=== PATIENT | male | born 1975 | race Caucasian/White ===

== ENCOUNTER 2018-11-15 11:07 | Inpatient (IN) ==
--- NOTE | 2018-11-15 12:18 | ED ---
HPI General Chief Complaint: Abdominal Pain Stated Complaint: Abdominal Complaint Time Seen by Provider: 11/15/18 12:02 Source: patient Mode of arrival: ambulatory Limitations: no limitations History of Present Illness HPI narrative: 43-year-old man, presents emerged from complaining of being sick for the past 10 days, nausea vomiting, worsening diffuse abdominal pain, 8 out of 10, with 5-10 episodes of vomiting a day. No diarrhea except one time he tried Dulcolax to see if that would help. No urinary symptoms. History of IV heroin use, clean times 3 months. No recent use. Denies any history of endocarditis or other complications of injection drug use. No sick contacts. Otherwise has been feeling generally well and healthy. Symptoms started 10 days ago with some cough cold symptoms. Cough cold symptoms generally resolved but the abdominal pain and nausea vomiting got progressively worse. No history of previous similar symptoms. Related Data Home Medications Medication Instructions Recorded Confirmed No Known Home Medications 11/15/18 11/15/18 Allergies Allergy/AdvReac Type Severity Reaction Status Date / Time No Known Allergies Allergy Verified 11/15/18 11:12 Review of Systems ROS: all other systems reviewed are negative PMFSH History History Provided By: Patient and Family Member Medical History Medical History Patient denies medical problems (Acute) Surgical History Surgical History No history of previous surgery (Acute) Social History Social History Smoking Status: Never smoker How Often Do You Have a Drink Containing Alcohol: Never Recent Travel in [facility] within the Last 8 Weeks: Yes Recent Out of Country Travel within the Last 8 Weeks: No Exam Narrative Exam Narrative: GENERAL: Pale, one appearing 43-year-old man, nontoxic. SKIN: Focused skin assessment warm/dry. HEAD: Atraumatic. Normocephalic. EYES: Pupils equal and round. No scleral icterus. No injection or drainage. ENT: No nasal bleeding or discharge. Mucous membranes pink and moist. NECK: Trachea midline. No JVD. CARDIOVASCULAR: Regular rate and rhythm. No murmur appreciated. RESPIRATORY: No accessory muscle use. Clear to auscultation. Breath sounds equal bilaterally. GASTROINTESTINAL: Abdomen soft. Maybe a little bit distended. Moderate diffuse tenderness. No rebound or guarding. MUSCULOSKELETAL: No obvious deformities. No edema. NEUROLOGICAL: Awake and alert. No obvious cranial nerve deficits. Motor grossly within normal limits. Normal speech. PSYCHIATRIC: Appropriate mood and affect; insight and judgment normal. Course Reevaluation(s) Reevaluation #1: Spoke with Dr. Medina via Cell Phone, spoke with darinel thompson, will review slide and consult. Initial Documented Vital Signs Temperature 98.4 F 11/15/18 11:13 Pulse Rate 102 H 11/15/18 11:13 Respiratory Rate 19 11/15/18 11:13 Blood Pressure 109/70 11/15/18 11:13 Pulse Oximetry 100 11/15/18 11:13 Last Documented Vital Signs Temperature 98.4 F 11/15/18 11:13 Pulse Rate 95 H 11/15/18 15:08 Respiratory Rate 20 11/15/18 15:08 Blood Pressure 115/56 L 11/15/18 15:08 Pulse Oximetry 98 11/15/18 15:08 Medical Decision Making MDM Narrative Medical decision making narrative: 43-year-old man, somewhat pale in the ill- appearing, abdominal pain and vomiting ongoing for a week. Started with some cough cold symptoms. History of IV drug use but no use times 3 months he has not really having diarrhea to suggest this is acute gastroenteritis. Will check labs, CT imaging, this will likely still be negative, and if so, will recommend symptom medic treatment and outpatient follow-up. He also needs a note that he is okay to start long-term detox/sober living. Lab work is been reviewed and is notable for a hemoglobin of 8.1, platelet count of 16, a sodium of 125 and a chloride of 93, total bilirubin 2.2, ALP 178 , CT abdomen pelvis reveals a single functioning left-sided kidney. The right kidney does not exist. 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 Mild to moderate abdominal ascites, small bilateral effusions, right greater than left. The patient denies any significant past medical history, does endorse a history of IV drug use last using 3 months ago. No history of nephrectomy. No history of black or tarry stools, hematemesis, hematochezia. Medical Screen Exam Complete: Yes Emergency Medical Condition: Yes Lab Data Result diagrams: 11/15/18 12:34 11/15/18 12:34 Lab Results 11/15/18 11/15/18 11/15/18 Range/Units 12:34 12:34 13:09 WBC 8.2 (4.0-11.0) th/mm3 RBC 3.01 L (4.50-5.90) mil/mm3 Hgb 8.1 L (13.0-17.0) gm/dL Hct 25.5 L (39.0-51.0) % MCV 84.7 (80.0-100.0) fL MCH 26.9 L (27.0-34.0) pg MCHC 31.8 L (32.0-36.0) % RDW 23.1 H (11.6-17.2) % Plt Count 16 L* (150-450) th/mm3 MPV 9.6 (7.0-11.0) fL Prelim Diff (Auto) Slide review pending Neut % (Auto) 77.4 H (16.0-70.0) % Lymph % (Auto) 14.5 (9.0-44.0) % Loup % (Auto) 7.3 (0.0-8.0) % Eos % (Auto) 0.1 (0.0-4.0) % Baso % (Auto) 0.7 (0.0-2.0) % Neut # (Auto) 6.3 (1.8-7.7) th/mm3 Lymph # (Auto) 1.2 (1.0-4.8) th/mm3 Loup # (Auto) 0.6 (0.0-0.9) th/mm3 Eos # (Auto) 0.0 (0.0-0.4) th/mm3 Baso # (Auto) 0.1 (0.0-0.2) th/mm3 WBC Differential Manual diff final Seg Neuts % (Manual) 85 H (16-70) % Band Neuts % (Manual) 4 (0-6) % Lymphocytes % (Manual) 8 L (9-44) % Monocytes % (Manual) 2 (0-8) % Basophils % (Manual) 1 (0-2) % Abs Neuts (Manual) 7.3 (1.8-7.7) th/mm3 Differential Comment . Toxic Granulation 2+ H (None) Platelet Estimate Low L (Normal) Platelet Morphology Enlarged H (Normal) Polychromasia 2.7 H (0.0-1.9) % Tear Drop Cells 1+ H (None) Ovalocytes 1+ H (None) Keratocytes Occ H (None) PT (9.8-11.6) sec INR Ratio APTT (23.4-31.7) sec Sodium 125 L (136-145) meq/L Potassium 4.1 (3.5-5.1) meq/L Chloride 93 L (98-107) meq/L Carbon Dioxide 22.6 (21.0-32.0) meq/L Anion Gap 9 (5-15) meq/L BUN 24 H (7-18) mg/dL Creatinine 1.25 (0.60-1.30) mg/dL Estimated GFR 63 L (>89) mL/min Random Glucose 88 (74-106) mg/dL Calcium 7.5 L (8.5-10.1) mg/dL Magnesium 2.4 (1.5-2.5) mg/dL Total Bilirubin 2.2 H (0.2-1.0) mg/dL AST 36 (15-37) U/L ALT 14 (12-78) U/L Alkaline Phosphatase 178 H (45-117) U/L Total Protein 7.1 (6.4-8.2) g/dL Albumin 2.3 L (3.4-5.0) g/dL Lipase 141 (73-393) U/L Urine Color Bridgett (Yellw/Straw) Urine Clarity Clear (Clear) Urine pH 6.0 (5.0-8.5) Ur Specific Weems 1.019 (1.002-1.035) Urine Protein 100 H (Neg-Trace) mg/dL Urine Glucose (UA) Negative (Negative) mg/dL Urine Ketones Negative (Negative) mg/dL Urine Occult Blood Large H (Negative) Urine Nitrate Negative (Negative) Urine Bilirubin Negative (Negative) Urine Urobilinogen Less than 2 (Less than 2) mg/dL Ur Leukocyte Esterase Trace H (Negative) Urine RBC 17 H (0-3) /hpf Urine WBC 8 H (0-5) /hpf Urine Bacteria Rare H (None) /hpf Hyaline Casts 9 (0-3) /lpf Urine Mucus Few H (Occasional) /lpf Urine Yeast Few H (None) /hpf Micro UA Comment Culture not ind Ur Microscopic Review Not Reportable Urine Culture Comments Culture not ind Blood Type Blood Type Recheck Antibody Screen 11/15/18 11/15/18 Range/Units 13:20 13:20 WBC (4.0-11.0) th/mm3 RBC (4.50-5.90) mil/mm3 Hgb (13.0-17.0) gm/dL Hct (39.0-51.0) % MCV (80.0-100.0) fL MCH (27.0-34.0) pg MCHC (32.0-36.0) % RDW (11.6-17.2) % Plt Count (150-450) th/mm3 MPV (7.0-11.0) fL Prelim Diff (Auto) Neut % (Auto) (16.0-70.0) % Lymph % (Auto) (9.0-44.0) % Loup % (Auto) (0.0-8.0) % Eos % (Auto) (0.0-4.0) % Baso % (Auto) (0.0-2.0) % Neut # (Auto) (1.8-7.7) th/mm3 Lymph # (Auto) (1.0-4.8) th/mm3 Loup # (Auto) (0.0-0.9) th/mm3 Eos # (Auto) (0.0-0.4) th/mm3 Baso # (Auto) (0.0-0.2) th/mm3 WBC Differential Seg Neuts % (Manual) (16-70) % Band Neuts % (Manual) (0-6) % Lymphocytes % (Manual) (9-44) % Monocytes % (Manual) (0-8) % Basophils % (Manual) (0-2) % Abs Neuts (Manual) (1.8-7.7) th/mm3 Differential Comment Toxic Granulation (None) Platelet Estimate (Normal) Platelet Morphology (Normal) Polychromasia (0.0-1.9) % Tear Drop Cells (None) Ovalocytes (None) Keratocytes (None) PT 14.6 H (9.8-11.6) sec INR 1.4 Ratio APTT 38.3 H (23.4-31.7) sec Sodium (136-145) meq/L Potassium (3.5-5.1) meq/L Chloride (98-107) meq/L Carbon Dioxide (21.0-32.0) meq/L Anion Gap (5-15) meq/L BUN (7-18) mg/dL Creatinine (0.60-1.30) mg/dL Estimated GFR (>89) mL/min Random Glucose (74-106) mg/dL Calcium (8.5-10.1) mg/dL Magnesium (1.5-2.5) mg/dL Total Bilirubin (0.2-1.0) mg/dL AST (15-37) U/L ALT (12-78) U/L Alkaline Phosphatase (45-117) U/L Total Protein (6.4-8.2) g/dL Albumin (3.4-5.0) g/dL Lipase (73-393) U/L Urine Color (Yellw/Straw) Urine Clarity (Clear) Urine pH (5.0-8.5) Ur Specific Weems (1.002-1.035) Urine Protein (Neg-Trace) mg/dL Urine Glucose (UA) (Negative) mg/dL Urine Ketones (Negative) mg/dL Urine Occult Blood (Negative) Urine Nitrate (Negative) Urine Bilirubin (Negative) Urine Urobilinogen (Less than 2) mg/dL Ur Leukocyte Esterase (Negative) Urine RBC (0-3) /hpf Urine WBC (0-5) /hpf Urine Bacteria (None) /hpf Hyaline Casts (0-3) /lpf Urine Mucus (Occasional) /lpf Urine Yeast (None) /hpf Micro UA Comment Ur Microscopic Review Urine Culture Comments Blood Type A Positive Blood Type Recheck Required Antibody Screen Negative Imaging Data Radiologist's impression: Abdomen/Pelvis CT 11/15/18 12:14 CONCLUSION: 1. 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 This needs to be correlated with patient's medical and surgical history. 2. Fatty infiltration of the liver. 3. 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 The largest defect measures approximately 3 cm x 4 cm. 4. Mild to moderate abdominal ascites. 5. Small bilateral effusions, right greater than left. Discharge Plan Discharge Disposition Patient Disposition: ED Admit(ED Internal Use Only) Discharge Condition Condition: Stable Discharge Order Discharge Orders: ED Use Only Admit Order (Routine); Ordered 11/15/18 Ordered By: Feliberto Russell Discharge Details Diagnosis: Thrombocytopenia, Splenic infarct, Hyponatremia Physicians Team ED Provider: Dmitriy Platt ED Midlevel Provider: Feliberto Russell Primary Care Provider: Primary Care Yolie Kamara Attending Provider: Huy Pandey Status ED Status: Admitted Patient
[2018-11-15] MEDS ORDERED: Sod Chloride 0.9% Inj 1,000 ML IV.SIG SCH (12:30)
[2018-11-15] MEDS ORDERED: Dicyclomine Inj 20 MG/2 ML Ampul IM ONE (12:39)
[2018-11-15] MEDS ORDERED: Pantoprazole Inj 40 MG Vial IV.PUSH ONE (12:43)
[2018-11-15 12:54] LABS: Baso # (Auto) 0.1 th/mm3 (0.0-0.2); Baso % (Auto) 0.7 % (0.0-2.0); Eos % (Auto) 0.1 % (0.0-4.0); Hematocrit 25.5 % (39.0-51.0); Hemoglobin 8.1 gm/dL (13.0-17.0); Lymph # (Auto) 1.2 th/mm3 (1.0-4.8); Lymph % (Auto) 14.5 % (9.0-44.0); Mean Corpuscular HGB Conc 31.8 % (32.0-36.0); Mean Corpuscular Hemoglobin 26.9 pg (27.0-34.0); Mean Corpuscular Volume 84.7 fL (80.0-100.0); Mean Platelet Volume 9.6 fL (7.0-11.0); Mono # (Auto) 0.6 th/mm3 (0.0-0.9); Mono % (Auto) 7.3 % (0.0-8.0); Neut # (Auto) 6.3 th/mm3 (1.8-7.7); Neut % (Auto) 77.4 % (16.0-70.0); Red Blood Count 3.01 mil/mm3 (4.50-5.90); Red Cell Distribution Width 23.1 % (11.6-17.2); White Blood Count 8.2 th/mm3 (4.0-11.0)
[2018-11-15 13:07] LABS: Alanine Aminotransferase 14 U/L (12-78); Albumin 2.3 g/dL (3.4-5.0); Anion Gap 9 meq/L (5-15); Aspartate Aminotransferase 36 U/L (15-37); Blood Urea Nitrogen 24 mg/dL (7-18); Calcium 7.5 mg/dL (8.5-10.1); Carbon Dioxide 22.6 meq/L (21.0-32.0); Chloride 93 meq/L (98-107); Glomerular Filtration Rate 63 mL/min (>89); Glucose,Random 88 mg/dL (74-106); Lipase 141 U/L (73-393); Magnesium 2.4 mg/dL (1.5-2.5); Potassium 4.1 meq/L (3.5-5.1); Sodium 125 meq/L (136-145)
[2018-11-15 13:09] LABS: Alkaline Phosphatase 178 U/L (45-117); Total Protein 7.1 g/dL (6.4-8.2)
[2018-11-15 13:17] LABS: Platelet Count 16 th/mm3 (150-450)
[2018-11-15 13:25] LABS: Lymphocytes 8 % (9-44); Monocytes 2 % (0-8)
[2018-11-15 13:27] LABS: Toxic Granulation 2+
[2018-11-15 13:28] LABS: Ovalocytes 1+; Tear Drop Cells 1+
[2018-11-15 13:30] LABS: Polychromasia 2.7 % (0.0-1.9)
[2018-11-15 13:34] LABS: Bacteria,Urine Rare /hpf; Bilirubin,Urine Negative (Negative); Clarity,Urine Clear (Clear); Color,Urine Amber (Yellw/Straw); Glucose,Urine (UA) Negative (Negative); Hyaline Casts,Urine 9 /lpf (0-3); Leukocyte Esterase,Urine Trace (Negative); Mucus,Urine Few /lpf (Occasional); Nitrite,Urine Negative (Negative); Specific Gravity,Urine 1.019 (1.002-1.035)
--- NOTE | 2018-11-15 13:40 | CT ---
EXAM DATE: 11/15/2018 1:25 PM EST AGE/SEX: 43 years / Male INDICATIONS: Patient complains of mid abdominal pain for 10 days CLINICAL DATA: This is the patient's initial encounter. Patient reports that signs and symptoms have been present for 1 week and indicates a pain score of 8/10. MEDICAL/SURGICAL HISTORY: None. None. ORAL CONTRAST: No oral contrast ingested. RADIATION DOSE: 7.96 CTDI (mGy) COMPARISON: No prior exams available for comparison. TECHNIQUE: Multiple contiguous axial images were obtained through the abdomen and pelvis following b olus infusion of 95 ml Omnipaque 350 (iohexol) nonionic water-soluble contrast as a cumulative dose for multiple exams. No oral contrast ingested. Using automated exposure control and adjustment of t he mA and/or kV according to patient size, radiation dose was kept as low as reasonably achievable to obtain optimal diagnostic quality images. DICOM format image data is available electronically for r eview and comparison. FINDINGS: Lower Lungs: Small bilateral pleural effusions, right greater than left. Liver: The liver has a homogeneous density without space-occupying lesion. There does appear to be so me fatty infiltration throughout the liver. There is evidence of a small amount of ascites in the upp er abdomen fluid around the liver and spleen. The gallbladder is grossly unremarkable. There is no di lation of the biliary tree. Spleen: There appear to be 2 focal defects involving the spleen suggestive of splenic infarcts. The largest defect measures approximately 3 cm x 4 cm. The smaller defect measures approximately 1.6 cm. The spleen does not appear to be enlarged. Pancreas: Unremarkable without mass or calcification. Kidneys: There is a single kidney on the left side which appears to be functioning with no evidence of hydronephrosis. There is no evidence of a right kidney. There is no evidence of a right renal emily ry. 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 Adrenal Glands: Unremarkable. Aorta: The aorta and proximal iliac vessels are grossly unremarkable without aneurysmal dilation. Bowel/Mesentery: The bowel loops are grossly unremarkable. The cecum and sigmoid colon have a normal configuration. There is stool throughout the colon. There is some mild to moderate ascites in the mi d to lower abdomen. Abdominal Wall: Intact. Retroperitoneum: No evidence of adenopathy in the retrocrural, para-aortic, or deep pelvic regions. Bladder: Contours are smooth. Reproductive Organs: No abnormal masses or calcifications seen. Inguinal: The inguinal region is unremarkable without evidence of adenopathy. Bony Structures: Unremarkable. CONCLUSION: 1. There is a single functioning left sided kidney. A right kidney does not exist. This could be age nesis of the right kidney. This needs to be correlated with patient's medical and surgical history. 2. Fatty infiltration of the liver. 3. 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 The largest defect m easures approximately 3 cm x 4 cm. 4. Mild to moderate abdominal ascites. 5. Small bilateral effusions, right greater than left. Electronically signed by: Carlos Roberto MD Board Certified Radiologist 11/15/2018 1:38 PM EST
[2018-11-15 13:54] LABS: Activated Partial Thrombo Time 38.3 sec (23.4-31.7); INR 1.4 Ratio; Prothrombin Time 14.6 sec (9.8-11.6)
--- NOTE | 2018-11-15 15:13 | P.HPFP ---
History of Present Illness Primary Care Physician: No Primary Care Physician <XaviHuy uribe - 11/16/18 10:21> No Primary Care Physician <Tonja Kelley - 11/15/18 15:13> Chief Complaint: Abdominal pain, nausea and vomiting. <Tonja Kelley - 20:33> History of Present Illness: 43-year-old male with history of IV drug use and aortic stenosis diagnosed as a child presents the hospital with constant bilateral lower quadrant abdominal pain that has been gradually worsening for the past 7-10 days. He describes the pain as a "fullness" and distention. Also complains of concurrent nausea, which comes and goes, worse with coughing, or movement causing increased abdominal pressure. He notes that he has been belching frequently and admits to vomiting 2-3 times daily for the past couple of days. He notes that the emesis is nonbilious and nonbloody, sometimes triggered by coughing. Though he has been intermittently nauseated, he has been able to tolerate fluids and food occasionally. He also notes some shortness of breath, describing it as an inability to take a deep breath due to stomach pain. Admits to mild swelling in his ankles and feet for the past couple of days. He notes that he feels more pale than normal, and parents who are in the room, comments that he looks a little yellow-tinged. Denies fever, lightheaded dizziness, syncope, falls, CP , dysuria, hematuria, diarrhea or constipation. No increased bleeding or bruising. Past medical history: Diagnosed with aortic stenosis as a child, but not operated on as he remains asymptomatic. Medications: None Surgical history: None Social history: Lives in a house in [facility], with his father and stepmother. He is currently unemployed. Recently moved to [place] from [place], about 1-2 months ago. Former 50-npww-hery smoker, quit 3 months ago Denies alcohol use currently. Notes "occasional use "in the past. 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 PCP: none <Tonja Kelley - 11/15/18 23:21> - Diagnosis (1) Thrombocytopenia (2) Anemia (3) Ascites (4) Abdominal pain (5) Nausea and vomiting (6) Hyponatremia (7) Splenic infarct (8) Aortic stenosis (9) Hx of intravenous drug use, in remission (10) Nutrition, metabolism, and development symptoms (11) DVT prophylaxis <Huy Pandey 11/16/18 10:21> (1) Thrombocytopenia (2) Anemia (3) Ascites (4) Abdominal pain (5) Nausea and vomiting (6) Hyponatremia (7) Splenic infarct (8) Aortic stenosis (9) Hx of intravenous drug use, in remission (10) Nutrition, metabolism, and development symptoms (11) DVT prophylaxis <[address] B 11/15/18 23:30> Inpatient Certification: I certify that the inpatient services were ordered in accordance with Medicare regulations governing the order. This includes certification that hospital inpatient services are reasonable and necessary and in the case of services not specified as inpatient-only under 42 CFR 419.22(n), that they are appropriately provided as inpatient services in accordance to with the 2-midnight benchmark under 43 CFR 412.3(e) <Huy Pandey 11/16/18 10:21> I certify that the inpatient services were ordered in accordance with Medicare regulations governing the order. This includes certification that hospital inpatient services are reasonable and necessary and in the case of services not specified as inpatient-only under 42 CFR 419.22(n), that they are appropriately provided as inpatient services in accordance to with the 2-midnight benchmark under 43 CFR 412.3(e) <[place] [id number] 11/15/18 23:21> Review of Systems Constitutional: Denies chills, Denies fever(s) <[address] 11/15/18 20:33> Eyes: Denies change in vision, Denies double vision <[address] 20:33> Ears, Nose, Mouth, and Throat: Denies nasal congestion, Denies nasal discharge, Denies sinus pain, Denies sore throat <[address] 11/15/18 20:33> Cardiovascular: Reports leg swelling, Reports lightheadedness, Denies chest pain , Denies irregular heart rhythm <[address] 11/15/18 20:33> Respiratory: Reports change in phlegm color, Reports cough, Reports shortness of breath (Unable to take a deep breath), Denies stridor, Denies wheezing < Tonja Kelley 11/15/18 20:33> Gastrointestinal: Reports abdominal pain, Reports belching, Reports bloating, Reports nausea, Reports vomiting, Denies constipation, Denies loose stools < Tonja Kelley 11/15/18 20:33> Genitourinary: Denies blood in urine, Denies painful urination <Tonja Kelley 11/15/18 20:33> Musculoskeletal: Denies back pain, Denies muscle cramps <Tonja Kelley 11/15/18 20:33> Hematologic/Lymphatic: Denies easy bleeding, Denies easy bruising <Tonja Kelley 11/15/18 20:33> PMFSH - History History Provided By: Patient, Family Member <Tonja Kelley 11/15/18 15: 13> - Medical History Medical History: Medical History (Last Reviewed 11/15/18 @ 22:59 by Tonja Tenorio DO, R1) Patient denies medical problems <Huy Pandey Wilfredo 11/16/18 10:21> Medical History (Last Reviewed 11/15/18 @ 22:59 by Tonja Tenorio DO, R1) Patient denies medical problems <Vahid TenorioTonja Brasher 11/15/18 23:21> - Surgical History Surgical History: Surgical History (Last Reviewed 11/15/18 @ 22:59 by Tonja Tenorio, , R1) No history of previous surgery <Huy Pandey 11/16/18 10:21> Surgical History (Last Reviewed 11/15/18 @ 22:59 by Tonja Tenorio DO, R1) No history of previous surgery <Vahid TenorioTonja Brasher 11/15/18 23:21> - Social History I have reviewed the patient's Social History: Yes <Vahid TenorioTonja Brasher 23:21> - Tobacco History Smoking Status: Never smoker <Vahid TenorioTonaj Brasher 11/15/18 15:13> - Alcohol History How Often Do You Have a Drink Containing Alcohol: Never <Vahid TenorioTonja Brasher 11/15/18 15:13> - 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 <Tonja Kelley 11/15/18 20:33> Last Used: 3 months <Tonja Kelley 11/15/18 20:33> Reason for Use: Get High <Tonja Kelley 11/15/18 20:33> - Travel History Recent Travel in the [facility] Within the Last 8 Weeks: Yes <Tonja Kelley 15:13> Recent Travel Out of the Country Within the Last 8 Weeks: No <Tonja Kelley 11/15/18 15:13> - Immunization History Tetanus Immunization: Unsure <Tonja Kelley 11/15/18 15:13> Medications and Allergies Allergies Allergy/AdvReac Type Severity Reaction Status Date / Time No Known Allergies Allergy Verified 11/15/18 11:12 <Huy Panedy 11/16/18 10:21> Home Medications Medication Instructions Recorded Confirmed Type No Known Home Medications 11/15/18 11/15/18 History <Huy Pandey 11/16/18 10:21> Active Medications: Active Medications Acetaminophen (Tylenol) 650 mg PO Q6HR PRN PRN Reason: PAIN SCALE 1 TO 2 Acetaminophen (Tylenol) 650 mg PO Q4H PRN PRN Reason: Temp > 100.4 Furosemide (Lasix) 40 mg PO DAILY [facility] Sodium Chloride (Ns Inj) 1,000 mls @ 110 mls/hr IV.CONT .Q9H6M [facility] Last Admin: 11/16/18 04:46 Dose: 110 mls/hr Albumin Human (Flexbumin 25% Inj) 50 mls @ 60 mls/hr IV.SIG Q12H [facility] Last Infusion: 11/15/18 23:50 Dose: Infused Ceftriaxone Sodium 1,000 mg/ (Sodium Chloride) 100 mls @ 200 mls/hr IV.SIG Q12H [facility] Naloxone HCl (Narcan Inj) 0.4 mg IV.PUSH UNSCH PRN PRN Reason: SEE LABEL COMMENTS Ondansetron HCl (Zofran Inj) 4 mg IV.PUSH Q6H PRN PRN Reason: NAUSEA OR VOMITING Senna/Docusate Sodium (Katherine-Colace) 1 tab PO BID PRN PRN Reason: CONSTIPATION Sodium Chloride (Ns Flush) 2 ml IV.FLUSH BID JAZLYN Last Admin: 11/15/18 23:05 Dose: 2 ml Sodium Chloride (Ns Flush) 2 ml IV.FLUSH PRN PRN PRN Reason: FLUSH AFTER USING IV ACCESS <Huy Pandey - 11/16/18 10:21> Active Medications Sodium Chloride (Ns Flush) 2 ml IV.FLUSH PRN PRN PRN Reason: FLUSH AFTER USING IV ACCESS <Tonja Kelley B - 11/15/18 15:13> Exam Vital signs: Vital Signs 11/15/18 11:13 11/15/18 15:08 11/15/18 17:45 Temperature 98.4 F 98.5 F Pulse Rate 102 H 95 H 102 H Respiratory Rate 19 20 17 Blood Pressure 109/70 115/56 L 102/59 L Pulse Oximetry 100 98 100 11/15/18 20:00 11/15/18 20:25 11/16/18 00:00 Temperature 99.0 F 96.9 F L Pulse Rate 92 H 78 Respiratory Rate 17 17 Blood Pressure 96/56 L 95/60 L Pulse Oximetry 95 95 94 L 11/16/18 04:36 11/16/18 08:00 Temperature 97.2 F L 98.4 F Pulse Rate 104 H 99 H Respiratory Rate 18 17 Blood Pressure 112/68 112/70 Pulse Oximetry 95 100 Intake & Output 11/15/18 11/16/18 11/16/18 18:59 06:59 18:59 Intake Total 1000 / 1000 1999 / 1999 Balance 1000 / 1000 1999 Weight 63 kg Intake: IV 1000 / 1000 1999 NS Inj 1,000 ML @ 110 mls/hr IV 950 / 950 .CONT .Q9H6M JAZLYN Rx#:[id number] Flexbumin 25% Inj 50 ML @ 60 50 / 50 mls/hr IV.SIG Q12H JAZLYN Rx#: [id number] NS Inj 1,000 ML @ 1000 mls/hr 1000 / 1000 1000 / 1000 IV.SIG BOLUS JAZLYN Rx#:[id number] Other: # Voids 3 Date of Last Bowel Movement 11/14/18 # Bowel Movements 1 Weight On Admission 62.1 kg <Huy Pandey - 11/16/18 10:21> Vital Signs 11/15/18 11:13 Temperature 98.4 F Pulse Rate 102 H Respiratory Rate 19 Blood Pressure 109/70 Pulse Oximetry 100 Intake & Output 11/14/18 11/15/18 11/15/18 18:59 06:59 18:59 Intake Total 1000 / 1000 Balance 1000 / 1000 Weight 68.039 kg Intake: IV 1000 / 1000 NS Inj 1,000 ML @ 1000 mls/hr 1000 / 1000 IV.SIG BOLUS JAZLYN Rx#:[id number] <Tonja Kelley - 11/15/18 15:13> Narrative: GENERAL: 43-year-old, well nourished, well developed male sitting up in bed. In no acute distress. SKIN: Warm and dry. Pale, mildly yellow. HEAD: Atraumatic. Normocephalic. EYES: EMOI. PERRLA. No scleral icterus. No injection or drainage. ENT: No nasal bleeding or discharge. Mucous membranes pale pink and moist. Airway patent. CARDIOVASCULAR: Regular rate and rhythm. Systolic ejection at sternal border murmur. Capillary refill greater than 2 seconds, but otherwise well perfused. RESPIRATORY: No accessory muscle use. Clear to auscultation with equal breath sounds. No crackles, wheeze, rales or rhonchi. GASTROINTESTINAL: Bowel sounds in all 4 quadrants. Abdomen distended, diffusely tender to light and deep palpation. No guarding or rebound. Hepatic and splenic margins not palpable. MUSCULOSKELETAL: Extremities without clubbing, cyanosis. Trace to 1+ edema of bilateral lower extremities up to mid ward. No obvious deformities. No calf tenderness. NEUROLOGICAL: Awake and alert. No obvious cranial nerve deficits. Motor grossly within normal limits. Five out of 5 muscle strength in the arms and legs. Normal speech. PSYCHIATRIC: Appropriate mood and affect; insight and judgment normal. <Tonja Kelley - 11/15/18 23:21> Results - Labs Result diagrams: 11/16/18 07:38 11/16/18 07:38 <Huy Pandey - 11/16/18 10:21> Abnormal lab results 11/15/18 11/15/18 11/15/18 Range/Units 12:34 12:34 12:34 RBC 3.01 L (4.50-5.90) mil/mm3 Hgb 8.1 L (13.0-17.0) gm/dL Hct 25.5 L (39.0-51.0) % MCH 26.9 L (27.0-34.0) pg MCHC 31.8 L (32.0-36.0) % RDW 23.1 H (11.6-17.2) % Plt Count 16 L* (150-450) th/mm3 Neut % (Auto) 77.4 H (16.0-70.0) % Lymph % (Auto) (9.0-44.0) % Neut # (Auto) (1.8-7.7) th/mm3 Lymph # (Auto) (1.0-4.8) th/mm3 Seg Neuts % (Manual) 85 H (16-70) % Lymphocytes % (Manual) 8 L (9-44) % Toxic Granulation 2+ H (None) Platelet Estimate Low L (Normal) Platelet Morphology Enlarged H (Normal) Polychromasia 2.7 H (0.0-1.9) % Tear Drop Cells 1+ H (None) Ovalocytes 1+ H (None) Keratocytes Occ H (None) Retic Count (0.4-3.0) % Absolute Retic (20.0-150.0) mil/L Haptoglobin Less than 10 L (30-200) mg/dL PT (9.8-11.6) sec APTT (23.4-31.7) sec Sodium 125 L (136-145) meq/L Chloride 93 L (98-107) meq/L Carbon Dioxide (21.0-32.0) meq/L BUN 24 H (7-18) mg/dL Creatinine (0.60-1.30) mg/dL Estimated GFR 63 L (>89) mL/min Calcium 7.5 L (8.5-10.1) mg/dL Calcium Adj for Albumin (8.5-10.1) mg/dL Iron (65-175) mcg/dL % Saturation (20-50) % Total Bilirubin 2.2 H (0.2-1.0) mg/dL Alkaline Phosphatase 178 H (45-117) U/L Lactate Dehydrogenase 761 H (87-241) U/L Albumin 2.3 L (3.4-5.0) g/dL Vitamin B12 (193-986) pg/mL Urine Protein (Neg-Trace) mg/dL Urine Occult Blood (Negative) Ur Leukocyte Esterase (Negative) Urine RBC (0-3) /hpf Urine WBC (0-5) /hpf Urine Bacteria (None) /hpf Urine Mucus (Occasional) /lpf Urine Yeast (None) /hpf Hep C IgG Ab (Nonreactive) 11/15/18 11/15/18 11/15/18 Range/Units 12:34 12:34 13:09 RBC (4.50-5.90) mil/mm3 Hgb (13.0-17.0) gm/dL Hct (39.0-51.0) % MCH (27.0-34.0) pg MCHC (32.0-36.0) % RDW (11.6-17.2) % Plt Count (150-450) th/mm3 Neut % (Auto) (16.0-70.0) % Lymph % (Auto) (9.0-44.0) % Neut # (Auto) (1.8-7.7) th/mm3 Lymph # (Auto) (1.0-4.8) th/mm3 Seg Neuts % (Manual) (16-70) % Lymphocytes % (Manual) (9-44) % Toxic Granulation (None) Platelet Estimate (Normal) Platelet Morphology (Normal) Polychromasia (0.0-1.9) % Tear Drop Cells (None) Ovalocytes (None) Keratocytes (None) Retic Count 6.0 H (0.4-3.0) % Absolute Retic 177.6 H (20.0-150.0) mil/L Haptoglobin (30-200) mg/dL PT (9.8-11.6) sec APTT (23.4-31.7) sec Sodium (136-145) meq/L Chloride (98-107) meq/L Carbon Dioxide (21.0-32.0) meq/L BUN (7-18) mg/dL Creatinine (0.60-1.30) mg/dL Estimated GFR (>89) mL/min Calcium (8.5-10.1) mg/dL Calcium Adj for Albumin (8.5-10.1) mg/dL Iron 23 L (65-175) mcg/dL % Saturation 8.8 L (20-50) % Total Bilirubin (0.2-1.0) mg/dL Alkaline Phosphatase (45-117) U/L Lactate Dehydrogenase (87-241) U/L Albumin (3.4-5.0) g/dL Vitamin B12 1922 H (193-986) pg/mL Urine Protein 100 H (Neg-Trace) mg/dL Urine Occult Blood Large H (Negative) Ur Leukocyte Esterase Trace H (Negative) Urine RBC 17 H (0-3) /hpf Urine WBC 8 H (0-5) /hpf Urine Bacteria Rare H (None) /hpf Urine Mucus Few H (Occasional) /lpf Urine Yeast Few H (None) /hpf Hep C IgG Ab (Nonreactive) 11/15/18 11/15/18 11/16/18 Range/Units 13:20 18:30 01:35 RBC (4.50-5.90) mil/mm3 Hgb (13.0-17.0) gm/dL Hct (39.0-51.0) % MCH (27.0-34.0) pg MCHC (32.0-36.0) % RDW (11.6-17.2) % Plt Count (150-450) th/mm3 Neut % (Auto) (16.0-70.0) % Lymph % (Auto) (9.0-44.0) % Neut # (Auto) (1.8-7.7) th/mm3 Lymph # (Auto) (1.0-4.8) th/mm3 Seg Neuts % (Manual) (16-70) % Lymphocytes % (Manual) (9-44) % Toxic Granulation (None) Platelet Estimate (Normal) Platelet Morphology (Normal) Polychromasia (0.0-1.9) % Tear Drop Cells (None) Ovalocytes (None) Keratocytes (None) Retic Count (0.4-3.0) % Absolute Retic (20.0-150.0) mil/L Haptoglobin (30-200) mg/dL PT 14.6 H (9.8-11.6) sec APTT 38.3 H (23.4-31.7) sec Sodium 128 L (136-145) meq/L Chloride (98-107) meq/L Carbon Dioxide 19.8 L (21.0-32.0) meq/L BUN 29 H (7-18) mg/dL Creatinine (0.60-1.30) mg/dL Estimated GFR 62 L (>89) mL/min Calcium 6.9 L* (8.5-10.1) mg/dL Calcium Adj for Albumin 8.4 L (8.5-10.1) mg/dL Iron (65-175) mcg/dL % Saturation (20-50) % Total Bilirubin (0.2-1.0) mg/dL Alkaline Phosphatase (45-117) U/L Lactate Dehydrogenase (87-241) U/L Albumin 2.1 L (3.4-5.0) g/dL Vitamin B12 (193-986) pg/mL Urine Protein (Neg-Trace) mg/dL Urine Occult Blood (Negative) Ur Leukocyte Esterase (Negative) Urine RBC (0-3) /hpf Urine WBC (0-5) /hpf Urine Bacteria (None) /hpf Urine Mucus (Occasional) /lpf Urine Yeast (None) /hpf Hep C IgG Ab Reactive H (Nonreactive) 11/16/18 11/16/18 11/16/18 Range/Units 07:38 07:38 07:38 RBC 2.99 L (4.50-5.90) mil/mm3 Hgb 8.0 L (13.0-17.0) gm/dL Hct 25.5 L (39.0-51.0) % MCH 26.9 L (27.0-34.0) pg MCHC 31.6 L (32.0-36.0) % RDW 23.7 H (11.6-17.2) % Plt Count 14 L* (150-450) th/mm3 Neut % (Auto) 89.0 H (16.0-70.0) % Lymph % (Auto) 7.4 L (9.0-44.0) % Neut # (Auto) 9.6 H (1.8-7.7) th/mm3 Lymph # (Auto) 0.8 L (1.0-4.8) th/mm3 Seg Neuts % (Manual) (16-70) % Lymphocytes % (Manual) (9-44) % Toxic Granulation 1+ H (None) Platelet Estimate Rare L (Normal) Platelet Morphology (Normal) Polychromasia 2.0 H (0.0-1.9) % Tear Drop Cells 1+ H (None) Ovalocytes 1+ H (None) Keratocytes Occ H (None) Retic Count (0.4-3.0) % Absolute Retic (20.0-150.0) mil/L Haptoglobin (30-200) mg/dL PT (9.8-11.6) sec APTT (23.4-31.7) sec Sodium 130 L (136-145) meq/L Chloride (98-107) meq/L Carbon Dioxide 20.6 L (21.0-32.0) meq/L BUN 28 H (7-18) mg/dL Creatinine 1.35 H (0.60-1.30) mg/dL Estimated GFR 58 L (>89) mL/min Calcium 7.0 L* (8.5-10.1) mg/dL Calcium Adj for Albumin 8.3 L (8.5-10.1) mg/dL Iron (65-175) mcg/dL % Saturation (20-50) % Total Bilirubin 2.2 H (0.2-1.0) mg/dL Alkaline Phosphatase 150 H (45-117) U/L Lactate Dehydrogenase 702 H (87-241) U/L Albumin 2.4 L (3.4-5.0) g/dL Vitamin B12 (193-986) pg/mL Urine Protein (Neg-Trace) mg/dL Urine Occult Blood (Negative) Ur Leukocyte Esterase (Negative) Urine RBC (0-3) /hpf Urine WBC (0-5) /hpf Urine Bacteria (None) /hpf Urine Mucus (Occasional) /lpf Urine Yeast (None) /hpf Hep C IgG Ab (Nonreactive) Short CBC 11/15/18 11/16/18 Range/Units 12:34 07:38 WBC 8.2 10.8 (4.0-11.0) th/mm3 Hgb 8.1 L 8.0 L (13.0-17.0) gm/dL Hct 25.5 L 25.5 L (39.0-51.0) % Plt Count 16 L* 14 L* (150-450) th/mm3 BMP 11/15/18 11/16/18 11/16/18 12:34 01:35 07:38 Sodium 125 L 128 L 130 L Potassium 4.1 3.6 3.8 Chloride 93 L 99 99 Carbon Dioxide 22.6 19.8 L 20.6 L BUN 24 H 29 H 28 H Creatinine 1.25 1.27 1.35 H Calcium 7.5 L 6.9 L* 7.0 L* Liver Function 11/15/18 11/16/18 11/16/18 Range/Units 12:34 01:35 07:38 Total Bilirubin 2.2 H 2.2 H (0.2-1.0) mg/dL AST 36 30 (15-37) U/L ALT 14 12 (12-78) U/L Alkaline Phosphatase 178 H 150 H (45-117) U/L Albumin 2.3 L 2.1 L 2.4 L (3.4-5.0) g/dL Urine 11/15/18 Range/Units 13:09 Urine Color Bridgett (Yellw/Straw) Urine Clarity Clear (Clear) Urine pH 6.0 (5.0-8.5) Ur Specific [place] 1.019 (1.002-1.035) Urine Protein 100 H (Neg-Trace) mg/dL Urine Glucose (UA) Negative (Negative) mg/dL <Huy Pandey - 11/16/18 10:21> Abnormal lab results 11/15/18 11/15/18 11/15/18 Range/Units 12:34 12:34 13:09 RBC 3.01 L (4.50-5.90) mil/mm3 Hgb 8.1 L (13.0-17.0) gm/dL Hct 25.5 L (39.0-51.0) % MCH 26.9 L (27.0-34.0) pg MCHC 31.8 L (32.0-36.0) % RDW 23.1 H (11.6-17.2) % Plt Count 16 L* (150-450) th/mm3 Neut % (Auto) 77.4 H (16.0-70.0) % Seg Neuts % (Manual) 85 H (16-70) % Lymphocytes % (Manual) 8 L (9-44) % Toxic Granulation 2+ H (None) Platelet Estimate Low L (Normal) Platelet Morphology Enlarged H (Normal) Polychromasia 2.7 H (0.0-1.9) % Tear Drop Cells 1+ H (None) Ovalocytes 1+ H (None) Keratocytes Occ H (None) PT (9.8-11.6) sec APTT (23.4-31.7) sec Sodium 125 L (136-145) meq/L Chloride 93 L (98-107) meq/L BUN 24 H (7-18) mg/dL Estimated GFR 63 L (>89) mL/min Calcium 7.5 L (8.5-10.1) mg/dL Total Bilirubin 2.2 H (0.2-1.0) mg/dL Alkaline Phosphatase 178 H (45-117) U/L Albumin 2.3 L (3.4-5.0) g/dL Urine Protein 100 H (Neg-Trace) mg/dL Urine Occult Blood Large H (Negative) Ur Leukocyte Esterase Trace H (Negative) Urine RBC 17 H (0-3) /hpf Urine WBC 8 H (0-5) /hpf Urine Bacteria Rare H (None) /hpf Urine Mucus Few H (Occasional) /lpf Urine Yeast Few H (None) /hpf 11/15/18 Range/Units 13:20 RBC (4.50-5.90) mil/mm3 Hgb (13.0-17.0) gm/dL Hct (39.0-51.0) % MCH (27.0-34.0) pg MCHC (32.0-36.0) % RDW (11.6-17.2) % Plt Count (150-450) th/mm3 Neut % (Auto) (16.0-70.0) % Seg Neuts % (Manual) (16-70) % Lymphocytes % (Manual) (9-44) % Toxic Granulation (None) Platelet Estimate (Normal) Platelet Morphology (Normal) Polychromasia (0.0-1.9) % Tear Drop Cells (None) Ovalocytes (None) Keratocytes (None) PT 14.6 H (9.8-11.6) sec APTT 38.3 H (23.4-31.7) sec Sodium (136-145) meq/L Chloride (98-107) meq/L BUN (7-18) mg/dL Estimated GFR (>89) mL/min Calcium (8.5-10.1) mg/dL Total Bilirubin (0.2-1.0) mg/dL Alkaline Phosphatase (45-117) U/L Albumin (3.4-5.0) g/dL Urine Protein (Neg-Trace) mg/dL Urine Occult Blood (Negative) Ur Leukocyte Esterase (Negative) Urine RBC (0-3) /hpf Urine WBC (0-5) /hpf Urine Bacteria (None) /hpf Urine Mucus (Occasional) /lpf Urine Yeast (None) /hpf Short CBC 11/15/18 Range/Units 12:34 WBC 8.2 (4.0-11.0) th/mm3 Hgb 8.1 L (13.0-17.0) gm/dL Hct 25.5 L (39.0-51.0) % Plt Count 16 L* (150-450) th/mm3 BMP 11/15/18 12:34 Sodium 125 L Potassium 4.1 Chloride 93 L Carbon Dioxide 22.6 BUN 24 H Creatinine 1.25 Calcium 7.5 L Liver Function 11/15/18 Range/Units 12:34 Total Bilirubin 2.2 H (0.2-1.0) mg/dL AST 36 (15-37) U/L ALT 14 (12-78) U/L Alkaline Phosphatase 178 H (45-117) U/L Albumin 2.3 L (3.4-5.0) g/dL Urine 11/15/18 Range/Units 13:09 Urine Color Bridgett (Yellw/Straw) Urine Clarity Clear (Clear) Urine pH 6.0 (5.0-8.5) Ur Specific [place] 1.019 (1.002-1.035) Urine Protein 100 H (Neg-Trace) mg/dL Urine Glucose (UA) Negative (Negative) mg/dL <Vahid TenorioTonja Anshu - 11/15/18 15:13> - Imaging Impressions Abdomen/Pelvis CT 11/15/18 12:14 CONCLUSION: 1. 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 This needs to be correlated with patient's medical and surgical history. 2. Fatty infiltration of the liver. 3. 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 The largest defect measures approximately 3 cm x 4 cm. 4. Mild to moderate abdominal ascites. 5. Small bilateral effusions, right greater than left. <Huy Pandey - 11/16/18 10:21> Impressions Abdomen/Pelvis CT 11/15/18 12:14 CONCLUSION: 1. 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 This needs to be correlated with patient's medical and surgical history. 2. Fatty infiltration of the liver. 3. 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 The largest defect measures approximately 3 cm x 4 cm. 4. Mild to moderate abdominal ascites. 5. Small bilateral effusions, right greater than left. <Katarzynaishmael TenorioTonja Anshu 11/15/18 15:13> Caprini VTE Risk Assessment Caprini VTE Risk Assessment: Moderate/High Risk (score >= 2) <Katarzynaishmael Tenorio Tonja B 11/15/18 20:33> Caprini Risk Assessment Model: Point Value = 1 Point Value = 2 Point Value = 3 Point Value = 5 Age 41-60 Minor surgery BMI > 25 kg/m2 Swollen legs Varicose veins or History of unexplained or recurrent spontaneous Oral contraceptives or hormone replacement Sepsis (< 1 month) Serious lung disease, including pneumonia (< 1 month) Abnormal pulmonary function Acute myocardial infarction Congestive heart failure (< 1 month) History of inflammatory bowel disease Medical patient at bed rest Age 61-74 Arthroscopic surgery Major open surgery (> 45 min) Laparoscopic surgery (> 45 min) Malignancy Confined to bed (> 72 hours) Immobilizing plaster cast Central venous access Age >= 75 History of VTE Family history of VTE Factor V Leiden Prothrombin [id number] Lupus anticoagulant Anticardiolipin antibodies Elevated serum homocysteine Heparin-induced thrombocytopenia Other congenital or acquired thrombophilia Stroke (< 1 month) Elective arthroplasty Hip, pelvis, or leg fracture Acute spinal cord injury (< 1 month) <Huy Pandey - 11/16/18 10:21> Point Value = 1 Point Value = 2 Point Value = 3 Point Value = 5 Age 41-60 Minor surgery BMI > 25 kg/m2 Swollen legs Varicose veins or History of unexplained or recurrent spontaneous Oral contraceptives or hormone replacement Sepsis (< 1 month) Serious lung disease, including pneumonia (< 1 month) Abnormal pulmonary function Acute myocardial infarction Congestive heart failure (< 1 month) History of inflammatory bowel disease Medical patient at bed rest Age 61-74 Arthroscopic surgery Major open surgery (> 45 min) Laparoscopic surgery (> 45 min) Malignancy Confined to bed (> 72 hours) Immobilizing plaster cast Central venous access Age >= 75 History of VTE Family history of VTE Factor V Leiden Prothrombin [id number] Lupus anticoagulant Anticardiolipin antibodies Elevated serum homocysteine Heparin-induced thrombocytopenia Other congenital or acquired thrombophilia Stroke (< 1 month) Elective arthroplasty Hip, pelvis, or leg fracture Acute spinal cord injury (< 1 month) <Vahid Tonja Tenorio B - 11/15/18 20:33> Prophylaxis Regimen: Total Risk Factor Score Risk Level Prophylaxis Regimen 0-1 Low Early ambulation 2 Moderate Order ONE of the following: *Sequential Compression Device (SCD) *Heparin 5000 units SQ BID 3-4 Higher Order ONE of the following medications: *Heparin 5000 units SQ TID *Enoxaparin/Lovenox 40 mg SQ daily (WT < 150 kg, CrCl > 30 mL/min) *Enoxaparin/Lovenox 30 mg SQ daily (WT < 150 kg, CrCl > 10-29 mL/min) *Enoxaparin/Lovenox 30 mg SQ BID (WT < 150 kg, CrCl > 30 mL/min) AND/OR *Sequential Compression Device (SCD) 5 or more Highest Order ONE of the following medications: *Heparin 5000 units SQ TID (Preferred with Epidurals) *Enoxaparin/Lovenox 40 mg SQ daily (WT < 150 kg, CrCl > 30 mL/min) *Enoxaparin/Lovenox 30 mg SQ daily (WT < 150 kg, CrCl > 10-29 mL/min) *Enoxaparin/Lovenox 30 mg SQ BID (WT < 150 kg, CrCl > 30 mL/min) AND *Sequential Compression Device (SCD) <Huy Pandey - 11/16/18 10:21> Total Risk Factor Score Risk Level Prophylaxis Regimen 0-1 Low Early ambulation 2 Moderate Order ONE of the following: *Sequential Compression Device (SCD) *Heparin 5000 units SQ BID 3-4 Higher Order ONE of the following medications: *Heparin 5000 units SQ TID *Enoxaparin/Lovenox 40 mg SQ daily (WT < 150 kg, CrCl > 30 mL/min) *Enoxaparin/Lovenox 30 mg SQ daily (WT < 150 kg, CrCl > 10-29 mL/min) *Enoxaparin/Lovenox 30 mg SQ BID (WT < 150 kg, CrCl > 30 mL/min) AND/OR *Sequential Compression Device (SCD) 5 or more Highest Order ONE of the following medications: *Heparin 5000 units SQ TID (Preferred with Epidurals) *Enoxaparin/Lovenox 40 mg SQ daily (WT < 150 kg, CrCl > 30 mL/min) *Enoxaparin/Lovenox 30 mg SQ daily (WT < 150 kg, CrCl > 10-29 mL/min) *Enoxaparin/Lovenox 30 mg SQ BID (WT < 150 kg, CrCl > 30 mL/min) AND *Sequential Compression Device (SCD) <Tonja Kelley Anshu - 11/15/18 15:13> Assessment and Plan - Assessment (1) Thrombocytopenia Code(s): D69.6 - Thrombocytopenia, unspecified Status: Acute (2) Anemia Code(s): D64.9 - Anemia, unspecified Status: Acute (3) Ascites Code(s): R18.8 - Other ascites Status: Acute (4) Abdominal pain Code(s): R10.9 - Unspecified abdominal pain Status: Acute (5) Nausea and vomiting Code(s): R11.2 - Nausea with vomiting, unspecified Status: Acute (6) Hyponatremia Code(s): E87.1 - Hypo-osmolality and hyponatremia Status: Acute (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 Status: Acute (8) Aortic stenosis Code(s): I35.0 - Nonrheumatic aortic (valve) stenosis Status: Acute (9) Hx of intravenous drug use, in remission Code(s): Z87.898 - Personal history of other specified conditions Status: Acute (10) Nutrition, metabolism, and development symptoms Code(s): R63.8 - Other symptoms and signs concerning food and fluid intake Status: Acute (11) DVT prophylaxis Status: Acute <BrittneyHuy pope - 11/16/18 10:21> (1) Thrombocytopenia Code(s): D69.6 - Thrombocytopenia, unspecified Status: Acute (2) Anemia Code(s): D64.9 - Anemia, unspecified Status: Acute (3) Ascites Code(s): R18.8 - Other ascites Status: Acute (4) Abdominal pain Code(s): R10.9 - Unspecified abdominal pain Status: Acute (5) Nausea and vomiting Code(s): R11.2 - Nausea with vomiting, unspecified Status: Acute (6) Hyponatremia Code(s): E87.1 - Hypo-osmolality and hyponatremia Status: Acute (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 Status: Acute (8) Aortic stenosis Code(s): I35.0 - Nonrheumatic aortic (valve) stenosis Status: Acute (9) Hx of intravenous drug use, in remission Code(s): Z87.898 - Personal history of other specified conditions Status: Acute (10) Nutrition, metabolism, and development symptoms Code(s): R63.8 - Other symptoms and signs concerning food and fluid intake Status: Acute (11) DVT prophylaxis Status: Acute <Tonja Kelley - 11/15/18 23:30> - Assessment and Plan Thrombocytopenia, no active bleeding Anemia -CBC shows platelet count of 16,000 and hemoglobin of 8.1 Notable for toxic granulations 2+, enlarged platelet morphology, teardrop cells and ovalocytes. 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 spontaneous bacterial peritonitis CT abdomen shows mild to moderate ascites and fatty infiltration of the liver -Hepatitis panel ordered -Pain scale acetaminophen and Toradol. Patient declines opiate medication due to history of intravenous drug use. 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 -Right upper quadrant ultrasound with Doppler ordered -Echocardiogram ordered to r/o endocarditis -Hepatitis panel and HIV test ordered Hyponatremia -IV NS at 110 mls/hr -Continue to trend CMP. Will consider fluid restriction and salt tabs, if patient remains hyponatremic. FEN: - IV NS @ 110 ml/hr - Monitor replace electrolytes as needed - N.p.o. for now due to nausea and vomiting. Will advance as tolerated. DVT prophylaxis - Bilateral SCDs and compression hose dw Dr. Pandey <Tonja Kelley - 11/15/18 23:30> - Attending Attestation The exam, history, and the medical decision-making described in the above note were completed with the assistance of the resident physician. I reviewed and agree with the findings presented. I attest that I had a womz-af-roxy encounter with the patient on the same day, and personally performed and documented my assessment and findings in the medical record. reviewed, discussed and agree with resident histories above. Interviewed and Examined on 11/15 with following plan discussed with Dr Redding: Last IVDU 3 months ago appears in mild distress on initial exam, breathing slightly labored has ascites but not tense and has abdominal pain. has systolic murmur has pitting edema of extremities 1. Abdominal pain SBP v Splenic infarcts Treating SBP empirically and will monitor Avoid NSAIDs with suspected cirrhosis and solitary kidney Will check hepatic and splenic dopplers 2. Thrombocytopenia checked HCV/HIV, could have sepsis, hemolysis work up started, smear pending no renal dysfunction or AMS hematology consulted hold anticoagulants for now 3. Anemia hematology consulted, no transfusion necessary now 4. 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 checking dopplers will also get ECHO in case embolic source and blood cultures. hematology helping 5. hypotension expect BPs to run low in ascitic patient will stop IVF as has already been resusictated and add albumin and monitor for changes in mental status, UOP, etc. 6. Ascites start lasix cautiously will hold off on paracentesis with severe thrombocytopenia and treat sbp empirically assess in AM if plts rise may try to get diagnostic tap 7. Liver failure does appear to have dysfunction above work up pending. has possibly NAFLD on imaging 8. hypo Na status post NS infusion, improved some suspect more cirrhotic picture will see if it improves with albumin and lasix 9. solitary left kidney avoid nephrotoxic meds <Huy Pandey - 11/16/18 10:21>
[2018-11-15] MEDS ORDERED: Naloxone Inj 0.4 MG/ML Vial IV.PUSH PRN (15:30)
[2018-11-15] MEDS ORDERED: Senna/Docusate Sodium 8.6/50 MG Tablet PO PRN (15:30)
[2018-11-15] MEDS ORDERED: Acetaminophen 325 MG Tablet PO PRN ×2 (15:30)
[2018-11-15] MEDS ORDERED: Ketorolac Inj 30 MG/ML (IVP) Vial IV.PUSH PRN ×2 (15:30)
[2018-11-15 16:15] LABS: Lactate Dehydrogenase 761 U/L (87-241)
[2018-11-15] MEDS: Sod Chloride 0.9% Inj 1,000 ML IV.CONT SCH ×2 (16:49→18:51)
[2018-11-15 20:40] LABS: Iron 23 mcg/dL (65-175)
[2018-11-15 21:04] LABS: % Iron Saturation 8.8 % (20-50); Ferritin 205 ng/mL (26-388); Folate 11.3 ng/mL (3.1-17.5); Total Iron Binding Capacity 260 mcg/dL (250-450); Vitamin B12 1922 pg/mL (193-986)
[2018-11-15 21:12] LABS: Hepatitis A IgM Antibody Nonreactive (Nonreactive); Hepatitits B Surface Antigen Nonreactive (Nonreactive)
[2018-11-15] MEDS: Albumin Human 25% Inj 50 ML IV.SIG SCH (22:50)
[2018-11-16] MEDS ORDERED: Sod Chloride 0.9% Inj 1,000 ML IV.SIG SCH (00:15)
--- NOTE | 2018-11-16 00:36 | MB ---
cc: Елена Medina MD DATE: 11/15/2018 REASON FOR CONSULTATION: Consult requested by family practice resident for evaluation of severe anemia and severe thrombocytopenia. HISTORY OF PRESENT ILLNESS: Gilberto is a 43-year-old male. He is without any significant past medical history except that he was diagnosed with aortic stenosis when he was a child. He stated that his parents told him that he did not require any intervention for that. The patient has a history of IV drug abuse. However, he quit about 3 months ago. He moved to [place] from [place] about 1-2 months ago to stay with his parents. The patient was in his usual status of health up until about 10 days ago, he started having diffuse lower abdominal pain. The pain gradually got worse and he started having intractable nausea, followed by couple episodes of vomiting. He denies any diarrhea or constipation. He denies any fever. With these symptoms, he came into the emergency room. In the emergency room, the patient had a CT scan of the abdomen and pelvis, which shows fatty infiltration of the liver, 2 areas in the spleen consistent with infarct. Right kidney is absent. Some [id number] ascites and small bilateral pleural effusion. Blood test shows severe anemia with a hemoglobin of 8.1, MCV is 84, and platelet count is low at 16. Differential count is significant for 4% bandemia and toxic granulation. The patient is admitted to the hospital. I have been asked to see the patient for further recommendations. ER physician, Dr. Platt, had called me and discussed the case. I advised him to order some additional blood tests. The patient denies any previous history of anemia or thrombocytopenia. He states that the last time he saw any medical doctor was 4 or 5 years ago. PAST MEDICAL HISTORY: Aortic stenosis diagnosed during childhood. PAST SURGICAL HISTORY: None. ALLERGIES: NONE. MEDICATIONS PRIOR TO COMING TO THE HOSPITAL: None. FAMILY HISTORY: No history of malignancy. SOCIAL HISTORY: The patient is single. Smokes cigarettes 2-3 packs a day. Does not drink alcohol. He is an IV drug abuser, quit about 3 months ago. PHYSICAL EXAMINATION: GENERAL: Reveals a well-developed, well-nourished, chronically ill-appearing white male, in no apparent distress. VITAL SIGNS: Temperature 99, heart rate is 92, blood pressure 96/56. HEAD, EYES, EARS, NOSE, AND THROAT: Pupils equal, round, reactive to light and accommodation, extraocular movements intact. Anicteric. No oral lesions noted. No thrush noted. NECK: Supple. No JVD. No masses noted. LUNGS: Clear. No wheezing, rhonchi, or rales. HEART: Regular rate and rhythm. No murmur heard. ABDOMEN: Soft and nontender. No hepatosplenomegaly. No abnormal bowel sounds. No guarding or rigidity noted. EXTREMITIES: No pedal edema. No cyanosis, no clubbing. NEUROLOGIC: Awake, alert, oriented x 3. Sensory and motor seem to be intact. SKIN: No bruises or petechiae noted. Multiple tattoos noted BREASTS: No masses noted. LYMPH NODES: No cervical, supraclavicular, or axillary lymphadenopathy noted. BACK: There is no spinal tenderness noted. ASSESSMENT: Anemia with severe thrombocytopenia. He has toxic vacuolation. The differential diagnosis is sepsis versus vitamin B12/folate deficiency versus hemolysis versus hepatitis as he is an IV drug abuser versus primary bone marrow disorder. PLAN: I have reviewed his available records. I have discussed with Dr. Albert from the emergency room. I have called pathologist, Dr. Rea Molina, and requested her to review the peripheral smear. I did get a verbal report that he does not have any schistocytes or evidence of microangiopathic hemolytic anemia. He has toxic vacuolation, which is consistent with possible sepsis. The patient is having a low-grade fever. My recommendation is to check B12, folate, iron studies, MILKA, rheumatoid factor, haptoglobin Maria Teresa test and reticulocyte count. If these tests are nondiagnostic, then I would recommend bone marrow aspirate and biopsy to evaluate for any underlying primary bone marrow pathology. The patient is an IV drug abuser. HIV and hepatitis screen have been ordered. Results are still pending. The patient may be septic. I will leave it up to the medical team to address the treatment for possible sepsis. Further recommendations based on his hospital stay. Thank you for asking my opinion. MD VLAD Simmons/aguila/ , 11:14 PM , 11:28 PM VIRAL
[2018-11-16 02:15] LABS: Calcium 6.9 mg/dL (8.5-10.1); Carbon Dioxide 19.8 meq/L (21.0-32.0); Potassium 3.6 meq/L (3.5-5.1)
[2018-11-16 02:46] LABS: Albumin 2.1 g/dL (3.4-5.0); Calcium-Albumin Corrected 8.4 mg/dL (8.5-10.1)
[2018-11-16] MEDS: Sod Chloride 0.9% Inj 1,000 ML IV.CONT SCH ×3 (04:46→21:37)
[2018-11-16 08:06] LABS: Baso % (Auto) 0.4 % (0.0-2.0); Eos % (Auto) 0.2 % (0.0-4.0); Hematocrit 25.5 % (39.0-51.0); Lymph # (Auto) 0.8 th/mm3 (1.0-4.8); Lymph % (Auto) 7.4 % (9.0-44.0); Mean Corpuscular HGB Conc 31.6 % (32.0-36.0); Mean Corpuscular Hemoglobin 26.9 pg (27.0-34.0); Mean Corpuscular Volume 85.1 fL (80.0-100.0); Mean Platelet Volume 10.2 fL (7.0-11.0); Mono # (Auto) 0.3 th/mm3 (0.0-0.9); Neut # (Auto) 9.6 th/mm3 (1.8-7.7); Red Blood Count 2.99 mil/mm3 (4.50-5.90); Red Cell Distribution Width 23.7 % (11.6-17.2); White Blood Count 10.8 th/mm3 (4.0-11.0)
[2018-11-16 08:19] LABS: Platelet Count 14 th/mm3 (150-450)
[2018-11-16 08:24] LABS: Albumin 2.4 g/dL (3.4-5.0); Carbon Dioxide 20.6 meq/L (21.0-32.0); Potassium 3.8 meq/L (3.5-5.1); Total Protein 6.9 g/dL (6.4-8.2)
[2018-11-16 10:01] LABS: Platelet Estimate Rare (Normal)
[2018-11-16 10:02] LABS: Platelet Morphology Normal (Normal)
[2018-11-16 10:06] LABS: Ovalocytes 1+
[2018-11-16 10:07] LABS: Tear Drop Cells 1+; Toxic Granulation 1+
--- NOTE | 2018-11-16 10:14 | US ---
EXAM DATE: 11/16/2018 10:00 AM EST AGE/SEX: 43 years / Male INDICATIONS: Ascites. CLINICAL DATA: This is the patient's initial encounter. Patient reports that signs and symptoms have been present for 1 day and indicates a pain score of 2/10. MEDICAL/SURGICAL HISTORY: . Ascites. None. COMPARISON: [facility] – [place], CT ABDOMEN & PELVIS W CONTRAST, 11/15/2018. . FINDINGS: Limited ultrasound examination of the abdomen demonstrates very small amount of ascites with fluid pr imarily in the mid pelvis and along the inferior margin of the liver. Visualized portions of the live r demonstrate somewhat lobulated contour. CONCLUSION: 1. Very small amount of ascites. 2. Lobulated hepatic contour suggestive of cirrhosis. Electronically signed by: Mike Porras MD Board Certified Radiologist 11/16/2018 10:13 AM ERICK Coronado
[2018-11-16 10:18] LABS: INR 1.4 Ratio; Prothrombin Time 14.6 sec (9.8-11.6)
[2018-11-16] MEDS: Furosemide 40 MG Tablet PO SCH (10:56)
[2018-11-16] MEDS: Albumin Human 25% Inj 50 ML IV.SIG SCH ×2 (11:00→22:40)
--- NOTE | 2018-11-16 11:48 | US ---
EXAM DATE: 11/16/2018 11:38 AM EST AGE/SEX: 43 years / Male INDICATIONS: Abnormal CT. CLINICAL DATA: This is the patient's initial encounter. Patient reports that signs and symptoms have been present for 1 day and indicates a pain score of 4/10. MEDICAL/SURGICAL HISTORY: Hepatitis C. None. COMPARISON: [facility] – [place], US ABDOMEN LOWER LIMITED, 11/16/2018. . MEASUREMENTS: Liver:__ 17.8 cm. Common Bile Duct:___ 4mm. Right Kidney:___CT confirmed no right kidney Left Kidney:___ . Spleen:___ . FINDINGS: There is a moderate amount of ascites present Liver: Slightly increased echogenicity without focal lesion or ductal dilatation. Portal Vein: Hepatopedal flow seen in portal vein. Common Duct: No intraluminal mass or stone visualized. Gallbladder: Gallbladder wall is diffusely thickened with some low-level debris possible sludge. Th ere is some slight surrounding ascites. Absent sonographic Flanagan sign. Pancreas: 4 x 14 mm hyperechoic nodule within the head of the pancreas could be a collapsed cyst. Right Kidney: Not visualized. Ascites: Yes Spleen: Elongated without focal lesion Aorta: Unremarkable IVC: Other: None. CONCLUSION: 1. There is some ascites around the liver. Mildly fatty liver. The gallbladder wall is thickened, possibly related to the ascites. Negative sonographic Flanagan sign Electronically signed by: Dmitriy Andrews MD Board Certified Radiologist 11/16/2018 11:46 AM EST
--- NOTE | 2018-11-16 12:24 | P.PNFP ---
Subjective Interval history: actually feeling better today without starting rocephin yet. did receive ativan overnight. still some mild abdominal pain, no fevers. mild sob Results - Labs Result diagrams: 11/16/18 07:38 11/16/18 07:38 Abnormal lab results 11/15/18 11/15/18 11/15/18 Range/Units 12:34 12:34 12:34 RBC 3.01 L (4.50-5.90) mil/mm3 Hgb 8.1 L (13.0-17.0) gm/dL Hct 25.5 L (39.0-51.0) % MCH 26.9 L (27.0-34.0) pg MCHC 31.8 L (32.0-36.0) % RDW 23.1 H (11.6-17.2) % Plt Count 16 L* (150-450) th/mm3 Neut % (Auto) 77.4 H (16.0-70.0) % Lymph % (Auto) (9.0-44.0) % Neut # (Auto) (1.8-7.7) th/mm3 Lymph # (Auto) (1.0-4.8) th/mm3 Seg Neuts % (Manual) 85 H (16-70) % Lymphocytes % (Manual) 8 L (9-44) % Toxic Granulation 2+ H (None) Platelet Estimate Low L (Normal) Platelet Morphology Enlarged H (Normal) Polychromasia 2.7 H (0.0-1.9) % Tear Drop Cells 1+ H (None) Ovalocytes 1+ H (None) Keratocytes Occ H (None) Retic Count (0.4-3.0) % Absolute Retic (20.0-150.0) mil/L Haptoglobin Less than 10 L (30-200) mg/dL PT (9.8-11.6) sec APTT (23.4-31.7) sec Sodium 125 L (136-145) meq/L Chloride 93 L (98-107) meq/L Carbon Dioxide (21.0-32.0) meq/L BUN 24 H (7-18) mg/dL Creatinine (0.60-1.30) mg/dL Estimated GFR 63 L (>89) mL/min Calcium 7.5 L (8.5-10.1) mg/dL Calcium Adj for Albumin (8.5-10.1) mg/dL Iron (65-175) mcg/dL % Saturation (20-50) % Total Bilirubin 2.2 H (0.2-1.0) mg/dL Alkaline Phosphatase 178 H (45-117) U/L Lactate Dehydrogenase 761 H (87-241) U/L Albumin 2.3 L (3.4-5.0) g/dL Vitamin B12 (193-986) pg/mL Urine Protein (Neg-Trace) mg/dL Urine Occult Blood (Negative) Ur Leukocyte Esterase (Negative) Urine RBC (0-3) /hpf Urine WBC (0-5) /hpf Urine Bacteria (None) /hpf Urine Mucus (Occasional) /lpf Urine Yeast (None) /hpf Hep C IgG Ab (Nonreactive) 11/15/18 11/15/18 11/15/18 Range/Units 12:34 12:34 13:09 RBC (4.50-5.90) mil/mm3 Hgb (13.0-17.0) gm/dL Hct (39.0-51.0) % MCH (27.0-34.0) pg MCHC (32.0-36.0) % RDW (11.6-17.2) % Plt Count (150-450) th/mm3 Neut % (Auto) (16.0-70.0) % Lymph % (Auto) (9.0-44.0) % Neut # (Auto) (1.8-7.7) th/mm3 Lymph # (Auto) (1.0-4.8) th/mm3 Seg Neuts % (Manual) (16-70) % Lymphocytes % (Manual) (9-44) % Toxic Granulation (None) Platelet Estimate (Normal) Platelet Morphology (Normal) Polychromasia (0.0-1.9) % Tear Drop Cells (None) Ovalocytes (None) Keratocytes (None) Retic Count 6.0 H (0.4-3.0) % Absolute Retic 177.6 H (20.0-150.0) mil/L Haptoglobin (30-200) mg/dL PT (9.8-11.6) sec APTT (23.4-31.7) sec Sodium (136-145) meq/L Chloride (98-107) meq/L Carbon Dioxide (21.0-32.0) meq/L BUN (7-18) mg/dL Creatinine (0.60-1.30) mg/dL Estimated GFR (>89) mL/min Calcium (8.5-10.1) mg/dL Calcium Adj for Albumin (8.5-10.1) mg/dL Iron 23 L (65-175) mcg/dL % Saturation 8.8 L (20-50) % Total Bilirubin (0.2-1.0) mg/dL Alkaline Phosphatase (45-117) U/L Lactate Dehydrogenase (87-241) U/L Albumin (3.4-5.0) g/dL Vitamin B12 1922 H (193-986) pg/mL Urine Protein 100 H (Neg-Trace) mg/dL Urine Occult Blood Large H (Negative) Ur Leukocyte Esterase Trace H (Negative) Urine RBC 17 H (0-3) /hpf Urine WBC 8 H (0-5) /hpf Urine Bacteria Rare H (None) /hpf Urine Mucus Few H (Occasional) /lpf Urine Yeast Few H (None) /hpf Hep C IgG Ab (Nonreactive) 11/15/18 11/15/18 11/16/18 Range/Units 13:20 18:30 01:35 RBC (4.50-5.90) mil/mm3 Hgb (13.0-17.0) gm/dL Hct (39.0-51.0) % MCH (27.0-34.0) pg MCHC (32.0-36.0) % RDW (11.6-17.2) % Plt Count (150-450) th/mm3 Neut % (Auto) (16.0-70.0) % Lymph % (Auto) (9.0-44.0) % Neut # (Auto) (1.8-7.7) th/mm3 Lymph # (Auto) (1.0-4.8) th/mm3 Seg Neuts % (Manual) (16-70) % Lymphocytes % (Manual) (9-44) % Toxic Granulation (None) Platelet Estimate (Normal) Platelet Morphology (Normal) Polychromasia (0.0-1.9) % Tear Drop Cells (None) Ovalocytes (None) Keratocytes (None) Retic Count (0.4-3.0) % Absolute Retic (20.0-150.0) mil/L Haptoglobin (30-200) mg/dL PT 14.6 H (9.8-11.6) sec APTT 38.3 H (23.4-31.7) sec Sodium 128 L (136-145) meq/L Chloride (98-107) meq/L Carbon Dioxide 19.8 L (21.0-32.0) meq/L BUN 29 H (7-18) mg/dL Creatinine (0.60-1.30) mg/dL Estimated GFR 62 L (>89) mL/min Calcium 6.9 L* (8.5-10.1) mg/dL Calcium Adj for Albumin 8.4 L (8.5-10.1) mg/dL Iron (65-175) mcg/dL % Saturation (20-50) % Total Bilirubin (0.2-1.0) mg/dL Alkaline Phosphatase (45-117) U/L Lactate Dehydrogenase (87-241) U/L Albumin 2.1 L (3.4-5.0) g/dL Vitamin B12 (193-986) pg/mL Urine Protein (Neg-Trace) mg/dL Urine Occult Blood (Negative) Ur Leukocyte Esterase (Negative) Urine RBC (0-3) /hpf Urine WBC (0-5) /hpf Urine Bacteria (None) /hpf Urine Mucus (Occasional) /lpf Urine Yeast (None) /hpf Hep C IgG Ab Reactive H (Nonreactive) 11/16/18 11/16/18 11/16/18 Range/Units 07:38 07:38 07:38 RBC 2.99 L (4.50-5.90) mil/mm3 Hgb 8.0 L (13.0-17.0) gm/dL Hct 25.5 L (39.0-51.0) % MCH 26.9 L (27.0-34.0) pg MCHC 31.6 L (32.0-36.0) % RDW 23.7 H (11.6-17.2) % Plt Count 14 L* (150-450) th/mm3 Neut % (Auto) 89.0 H (16.0-70.0) % Lymph % (Auto) 7.4 L (9.0-44.0) % Neut # (Auto) 9.6 H (1.8-7.7) th/mm3 Lymph # (Auto) 0.8 L (1.0-4.8) th/mm3 Seg Neuts % (Manual) (16-70) % Lymphocytes % (Manual) (9-44) % Toxic Granulation 1+ H (None) Platelet Estimate Rare L (Normal) Platelet Morphology (Normal) Polychromasia 2.0 H (0.0-1.9) % Tear Drop Cells 1+ H (None) Ovalocytes 1+ H (None) Keratocytes Occ H (None) Retic Count (0.4-3.0) % Absolute Retic (20.0-150.0) mil/L Haptoglobin (30-200) mg/dL PT (9.8-11.6) sec APTT (23.4-31.7) sec Sodium 130 L (136-145) meq/L Chloride (98-107) meq/L Carbon Dioxide 20.6 L (21.0-32.0) meq/L BUN 28 H (7-18) mg/dL Creatinine 1.35 H (0.60-1.30) mg/dL Estimated GFR 58 L (>89) mL/min Calcium 7.0 L* (8.5-10.1) mg/dL Calcium Adj for Albumin 8.3 L (8.5-10.1) mg/dL Iron (65-175) mcg/dL % Saturation (20-50) % Total Bilirubin 2.2 H (0.2-1.0) mg/dL Alkaline Phosphatase 150 H (45-117) U/L Lactate Dehydrogenase 702 H (87-241) U/L Albumin 2.4 L (3.4-5.0) g/dL Vitamin B12 (193-986) pg/mL Urine Protein (Neg-Trace) mg/dL Urine Occult Blood (Negative) Ur Leukocyte Esterase (Negative) Urine RBC (0-3) /hpf Urine WBC (0-5) /hpf Urine Bacteria (None) /hpf Urine Mucus (Occasional) /lpf Urine Yeast (None) /hpf Hep C IgG Ab (Nonreactive) 11/16/18 Range/Units 09:54 RBC (4.50-5.90) mil/mm3 Hgb (13.0-17.0) gm/dL Hct (39.0-51.0) % MCH (27.0-34.0) pg MCHC (32.0-36.0) % RDW (11.6-17.2) % Plt Count (150-450) th/mm3 Neut % (Auto) (16.0-70.0) % Lymph % (Auto) (9.0-44.0) % Neut # (Auto) (1.8-7.7) th/mm3 Lymph # (Auto) (1.0-4.8) th/mm3 Seg Neuts % (Manual) (16-70) % Lymphocytes % (Manual) (9-44) % Toxic Granulation (None) Platelet Estimate (Normal) Platelet Morphology (Normal) Polychromasia (0.0-1.9) % Tear Drop Cells (None) Ovalocytes (None) Keratocytes (None) Retic Count (0.4-3.0) % Absolute Retic (20.0-150.0) mil/L Haptoglobin (30-200) mg/dL PT 14.6 H (9.8-11.6) sec APTT 35.0 H (23.4-31.7) sec Sodium (136-145) meq/L Chloride (98-107) meq/L Carbon Dioxide (21.0-32.0) meq/L BUN (7-18) mg/dL Creatinine (0.60-1.30) mg/dL Estimated GFR (>89) mL/min Calcium (8.5-10.1) mg/dL Calcium Adj for Albumin (8.5-10.1) mg/dL Iron (65-175) mcg/dL % Saturation (20-50) % Total Bilirubin (0.2-1.0) mg/dL Alkaline Phosphatase (45-117) U/L Lactate Dehydrogenase (87-241) U/L Albumin (3.4-5.0) g/dL Vitamin B12 (193-986) pg/mL Urine Protein (Neg-Trace) mg/dL Urine Occult Blood (Negative) Ur Leukocyte Esterase (Negative) Urine RBC (0-3) /hpf Urine WBC (0-5) /hpf Urine Bacteria (None) /hpf Urine Mucus (Occasional) /lpf Urine Yeast (None) /hpf Hep C IgG Ab (Nonreactive) Short CBC 11/15/18 11/16/18 Range/Units 12:34 07:38 WBC 8.2 10.8 (4.0-11.0) th/mm3 Hgb 8.1 L 8.0 L (13.0-17.0) gm/dL Hct 25.5 L 25.5 L (39.0-51.0) % Plt Count 16 L* 14 L* (150-450) th/mm3 BMP 11/15/18 11/16/18 11/16/18 12:34 01:35 07:38 Sodium 125 L 128 L 130 L Potassium 4.1 3.6 3.8 Chloride 93 L 99 99 Carbon Dioxide 22.6 19.8 L 20.6 L BUN 24 H 29 H 28 H Creatinine 1.25 1.27 1.35 H Calcium 7.5 L 6.9 L* 7.0 L* Liver Function 11/15/18 11/16/18 11/16/18 Range/Units 12:34 01:35 07:38 Total Bilirubin 2.2 H 2.2 H (0.2-1.0) mg/dL AST 36 30 (15-37) U/L ALT 14 12 (12-78) U/L Alkaline Phosphatase 178 H 150 H (45-117) U/L Albumin 2.3 L 2.1 L 2.4 L (3.4-5.0) g/dL Urine 11/15/18 Range/Units 13:09 Urine Color Bridgett (Yellw/Straw) Urine Clarity Clear (Clear) Urine pH 6.0 (5.0-8.5) Ur Specific [place] 1.019 (1.002-1.035) Urine Protein 100 H (Neg-Trace) mg/dL Urine Glucose (UA) Negative (Negative) mg/dL - Imaging Impressions Abdomen/Pelvis CT 11/15/18 12:14 CONCLUSION: 1. 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 This needs to be correlated with patient's medical and surgical history. 2. Fatty infiltration of the liver. 3. 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 The largest defect measures approximately 3 cm x 4 cm. 4. Mild to moderate abdominal ascites. 5. Small bilateral effusions, right greater than left. Abdomen Ultrasound 11/16/18 00:00 CONCLUSION: 1. Very small amount of ascites. 2. Lobulated hepatic contour suggestive of cirrhosis. Liver Ultrasound 11/16/18 00:00 CONCLUSION: 1. There is some ascites around the liver. Mildly fatty liver. The gallbladder wall is thickened, possibly related to the ascites. Negative sonographic Flanagan sign Physical Exam Vital signs: Vital Signs 11/15/18 15:08 11/15/18 17:45 11/15/18 20:00 Temperature 98.5 F 99.0 F Pulse Rate 95 H 102 H 92 H Respiratory Rate 20 17 17 Blood Pressure 115/56 L 102/59 L 96/56 L Pulse Oximetry 98 100 95 11/15/18 20:25 11/16/18 00:00 11/16/18 04:36 Temperature 96.9 F L 97.2 F L Pulse Rate 78 104 H Respiratory Rate 17 18 Blood Pressure 95/60 L 112/68 Pulse Oximetry 95 94 L 95 11/16/18 08:00 Temperature 98.4 F Pulse Rate 99 H Respiratory Rate 17 Blood Pressure 112/70 Pulse Oximetry 100 Intake & Output 11/15/18 11/16/18 11/16/18 18:59 06:59 18:59 Intake Total 1000 / 1000 1999 / 1999 Balance 1000 / 1000 1999 Weight 63 kg Intake: IV 1000 / 1000 1999 NS Inj 1,000 ML @ 110 mls/hr IV 950 / 950 .CONT .Q9H6M JAZLYN Rx#:[id number] Flexbumin 25% Inj 50 ML @ 60 50 / 50 mls/hr IV.SIG Q12H JAZLYN Rx#: [id number] NS Inj 1,000 ML @ 1000 mls/hr 1000 / 1000 1000 / 1000 IV.SIG BOLUS JAZLYN Rx#:[id number] Other: # Voids 3 Date of Last Bowel Movement 11/14/18 # Bowel Movements 1 Weight On Admission 62.1 kg - Constitutional no acute distress, average body habitus, cooperative - Routine HEENT Exam Head: Present: normocephalic, atraumatic Eye: Present: EOMI, PERRL, conjunctival icterus ENT: Present: mucous membranes moist - Routine Neck Exam Present: supple, full ROM - Routine Respiratory Exam Present: CTA bilaterally. Absent: accessory muscle use, stridor, wheezes, crackles - Routine Cardiovascular Exam Present: RRR, S1, S2, murmur - Routine Abdominal Exam Present: soft, tenderness Comments: ascites - Routine Extremities Exam Present: edema. Absent: cyanosis, clubbing - Routine Skin Exam Present: intact. Absent: cyanosis, erythema, mottling - Routine Neurological Exam Present: alert, oriented X3, sensory deficit, moving all extremities - Routine Psychiatric Exam Present: normal affect, normal thought process Assessment and Plan - Assessment (1) Thrombocytopenia Code(s): D69.6 - Thrombocytopenia, unspecified Status: Acute (2) Anemia Code(s): D64.9 - Anemia, unspecified Status: Acute (3) Ascites Code(s): R18.8 - Other ascites Status: Acute (4) Abdominal pain Code(s): R10.9 - Unspecified abdominal pain Status: Acute (5) Nausea and vomiting Code(s): R11.2 - Nausea with vomiting, unspecified Status: Acute (6) Hyponatremia Code(s): E87.1 - Hypo-osmolality and hyponatremia Status: Acute (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 Abdominal pain SBP v Splenic infarcts Treating SBP empirically and will monitor Avoid NSAIDs with suspected cirrhosis and solitary kidney Will check hepatic and splenic dopplers 2. Thrombocytopenia HCV + Cirrhosis + Sepsis? d/w Dr Medina, will eventually get BM biopsy, no shistocytes to suggest TTP hold anticoagulants 3. Anemia hematology consulted, no transfusion necessary now but no clear explanation yet. 4. 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 checking dopplers will also get ECHO in case embolic source and blood cultures. hematology helping conservative management now. 5. hypotension expect BPs to run low in ascitic patient doing ok today with albumin infusions 6. Ascites cont daily lasix will hold off on paracentesis with severe thrombocytopenia and treat sbp empirically assess in AM if plts rise may try to get diagnostic tap 7. Liver failure does appear to have dysfunction above work up pending. has possibly NAFLD on imaging 8. hypo Na status post NS infusion, improved some suspect more cirrhotic picture will see if it improves with albumin and lasix 9. solitary left kidney avoid nephrotoxic meds 10. + HCV antibody last exposure 3 months ago will check Quant and Genotype discussed meaning of this with patient.
--- NOTE | 2018-11-16 14:39 | P.PNONC ---
Subjective Interval history: Afebrile. Patient states that he feels somewhat improved. He appears dyspneic with conversation. He denies shortness of breath or chest pain. Denies bleeding. Denies EtOH use, reports last IV drug use 3 months ago. Objective Vital Signs/Intake & Output: Vital Signs 11/15/18 15:08 11/15/18 17:45 11/15/18 20:00 Temperature 98.5 F 99.0 F Pulse Rate 95 H 102 H 92 H Respiratory Rate 20 17 17 Blood Pressure 115/56 L 102/59 L 96/56 L Pulse Oximetry 98 100 95 11/15/18 20:25 11/16/18 00:00 11/16/18 04:36 Temperature 96.9 F L 97.2 F L Pulse Rate 78 104 H Respiratory Rate 17 18 Blood Pressure 95/60 L 112/68 Pulse Oximetry 95 94 L 95 11/16/18 08:00 11/16/18 12:00 Temperature 98.4 F 98.4 F Pulse Rate 99 H 100 H Respiratory Rate 17 19 Blood Pressure 112/70 126/61 Pulse Oximetry 100 99 Intake & Output 11/15/18 11/16/18 11/16/18 18:59 06:59 18:59 Intake Total 1000 / 1000 1999 / 1999 Balance 1000 / 1000 1999 Weight 63 kg Intake: IV 1000 / 1000 1999 NS Inj 1,000 ML @ 110 mls/hr IV 950 / 950 .CONT .Q9H6M JAZLYN Rx#:[id number] Flexbumin 25% Inj 50 ML @ 60 50 / 50 mls/hr IV.SIG Q12H JAZLYN Rx#: [id number] NS Inj 1,000 ML @ 1000 mls/hr 1000 / 1000 1000 / 1000 IV.SIG BOLUS JAZLYN Rx#:[id number] Other: # Voids 3 Date of Last Bowel Movement 11/14/18 # Bowel Movements 1 Weight On Admission 62.1 kg Result Diagrams: 11/16/18 07:38 11/16/18 07:38 Laboratory Results: Laboratory Results - last 24 hr 11/15/18 11/15/18 11/15/18 12:34 12:34 12:34 WBC RBC Hgb Hct MCV MCH MCHC RDW Plt Count MPV Prelim Diff (Auto) Neut % (Auto) Lymph % (Auto) [place] % (Auto) Eos % (Auto) Baso % (Auto) Neut # (Auto) Lymph # (Auto) [place] # (Auto) Eos # (Auto) Baso # (Auto) WBC Differential Diff Scan Differential Comment Toxic Granulation Platelet Estimate Platelet Morphology Polychromasia Tear Drop Cells Ovalocytes Keratocytes Smear Path Review Retic Count 6.0 H Absolute Retic 177.6 H Haptoglobin Less than 10 L PT INR APTT Sodium Potassium Chloride Carbon Dioxide Anion Gap BUN Creatinine Estimated GFR Random Glucose Calcium Calcium Adj for Albumin Iron TIBC % Saturation Ferritin Total Bilirubin AST ALT Alkaline Phosphatase Lactate Dehydrogenase 761 H Total Protein Total Protein (PEP) Albumin Tumor Marker AFP Vitamin B12 Folate Rheumatoid Factor Scrn Rheumatoid Factor Titer Hepatitis A IgM Ab Hep Bs Antigen Hep B Core IgM Ab Hep C IgG Ab HIV 1&2 Ab/P24 Ag 4thGn Blood Type Recheck Antibody Screen Direct Antiglob Test 11/15/18 11/15/18 11/15/18 12:34 13:20 13:20 WBC RBC Hgb Hct MCV MCH MCHC RDW Plt Count MPV Prelim Diff (Auto) Neut % (Auto) Lymph % (Auto) [place] % (Auto) Eos % (Auto) Baso % (Auto) Neut # (Auto) Lymph # (Auto) [place] # (Auto) Eos # (Auto) Baso # (Auto) WBC Differential Diff Scan Differential Comment Toxic Granulation Platelet Estimate Platelet Morphology Polychromasia Tear Drop Cells Ovalocytes Keratocytes Smear Path Review Retic Count Absolute Retic Haptoglobin PT INR APTT Sodium Potassium Chloride Carbon Dioxide Anion Gap BUN Creatinine Estimated GFR Random Glucose Calcium Calcium Adj for Albumin Iron 23 L TIBC 260 % Saturation 8.8 L Ferritin 205 Total Bilirubin AST ALT Alkaline Phosphatase Lactate Dehydrogenase Total Protein Total Protein (PEP) Albumin Tumor Marker AFP Vitamin B12 1922 H Folate 11.3 Rheumatoid Factor Scrn Negative Rheumatoid Factor Titer Not Reportable Hepatitis A IgM Ab Hep Bs Antigen Hep B Core IgM Ab Hep C IgG Ab HIV 1&2 Ab/P24 Ag 4thGn Blood Type Recheck Required Antibody Screen Negative Direct Antiglob Test Negative 11/15/18 11/15/18 11/16/18 18:30 18:30 01:35 WBC RBC Hgb Hct MCV MCH MCHC RDW Plt Count MPV Prelim Diff (Auto) Neut % (Auto) Lymph % (Auto) [place] % (Auto) Eos % (Auto) Baso % (Auto) Neut # (Auto) Lymph # (Auto) [place] # (Auto) Eos # (Auto) Baso # (Auto) WBC Differential Diff Scan Differential Comment Toxic Granulation Platelet Estimate Platelet Morphology Polychromasia Tear Drop Cells Ovalocytes Keratocytes Smear Path Review Retic Count Absolute Retic Haptoglobin PT INR APTT Sodium 128 L Potassium 3.6 Chloride 99 Carbon Dioxide 19.8 L Anion Gap 9 BUN 29 H Creatinine 1.27 Estimated GFR 62 L Random Glucose 85 Calcium 6.9 L* Calcium Adj for Albumin 8.4 L Iron TIBC % Saturation Ferritin Total Bilirubin AST ALT Alkaline Phosphatase Lactate Dehydrogenase Total Protein Total Protein (PEP) Albumin 2.1 L Tumor Marker AFP Vitamin B12 Folate Rheumatoid Factor Scrn Rheumatoid Factor Titer Hepatitis A IgM Ab Nonreactive Hep Bs Antigen Nonreactive Hep B Core IgM Ab Nonreactive Hep C IgG Ab Reactive H HIV 1&2 Ab/P24 Ag 4thGn Nonreactive Blood Type Recheck Antibody Screen Direct Antiglob Test 11/16/18 11/16/18 11/16/18 07:38 07:38 07:38 WBC 10.8 RBC 2.99 L Hgb 8.0 L Hct 25.5 L MCV 85.1 MCH 26.9 L MCHC 31.6 L RDW 23.7 H Plt Count 14 L* MPV 10.2 Prelim Diff (Auto) Slide review pending Neut % (Auto) 89.0 H Lymph % (Auto) 7.4 L [place] % (Auto) 3.0 Eos % (Auto) 0.2 Baso % (Auto) 0.4 Neut # (Auto) 9.6 H Lymph # (Auto) 0.8 L [place] # (Auto) 0.3 Eos # (Auto) 0.0 Baso # (Auto) 0.0 WBC Differential . Diff Scan Auto diff confirmed Differential Comment . Toxic Granulation 1+ H Platelet Estimate Rare L Platelet Morphology Normal Polychromasia 2.0 H Tear Drop Cells 1+ H Ovalocytes 1+ H Keratocytes Occ H Smear Path Review Retic Count Absolute Retic Haptoglobin PT INR APTT Sodium 130 L Potassium 3.8 Chloride 99 Carbon Dioxide 20.6 L Anion Gap 10 BUN 28 H Creatinine 1.35 H Estimated GFR 58 L Random Glucose 78 Calcium 7.0 L* Calcium Adj for Albumin 8.3 L Iron TIBC % Saturation Ferritin Total Bilirubin 2.2 H AST 30 ALT 12 Alkaline Phosphatase 150 H Lactate Dehydrogenase Total Protein 6.9 Total Protein (PEP) 6.6 Albumin 2.4 L Tumor Marker AFP Vitamin B12 Folate Rheumatoid Factor Scrn Rheumatoid Factor Titer Hepatitis A IgM Ab Hep Bs Antigen Hep B Core IgM Ab Hep C IgG Ab HIV 1&2 Ab/P24 Ag 4thGn Blood Type Recheck Antibody Screen Direct Antiglob Test 11/16/18 11/16/18 11/16/18 07:38 07:38 09:54 WBC RBC Hgb Hct MCV MCH MCHC RDW Plt Count MPV Prelim Diff (Auto) Neut % (Auto) Lymph % (Auto) [place] % (Auto) Eos % (Auto) Baso % (Auto) Neut # (Auto) Lymph # (Auto) [place] # (Auto) Eos # (Auto) Baso # (Auto) WBC Differential Diff Scan Differential Comment Toxic Granulation Platelet Estimate Platelet Morphology Polychromasia Tear Drop Cells Ovalocytes Keratocytes Smear Path Review Retic Count Absolute Retic Haptoglobin PT 14.6 H INR 1.4 APTT 35.0 H Sodium Potassium Chloride Carbon Dioxide Anion Gap BUN Creatinine Estimated GFR Random Glucose Calcium Calcium Adj for Albumin Iron TIBC % Saturation Ferritin Total Bilirubin AST ALT Alkaline Phosphatase Lactate Dehydrogenase 702 H Total Protein Cancelled Total Protein (PEP) Albumin Tumor Marker AFP 1.6 Vitamin B12 Folate Rheumatoid Factor Scrn Rheumatoid Factor Titer Hepatitis A IgM Ab Hep Bs Antigen Hep B Core IgM Ab Hep C IgG Ab HIV 1&2 Ab/P24 Ag 4thGn Blood Type Recheck Antibody Screen Direct Antiglob Test Culture Results: Microbiology 11/15/18 18:15 Aerobic Blood Culture - Preliminary Blood - Peripheral No growth in 1 day Anaerobic Blood Culture - Preliminary No growth in 1 day 11/15/18 18:30 Aerobic Blood Culture - Preliminary Blood - Peripheral No growth in 1 day Anaerobic Blood Culture - Preliminary No growth in 1 day Imaging Studies: Impressions Abdomen Ultrasound 11/16/18 00:00 CONCLUSION: 1. Very small amount of ascites. 2. Lobulated hepatic contour suggestive of cirrhosis. Liver Ultrasound 11/16/18 00:00 CONCLUSION: 1. There is some ascites around the liver. Mildly fatty liver. The gallbladder wall is thickened, possibly related to the ascites. Negative sonographic Flanagan sign Medications: Active Medications Generic Name Dose Route Start Last Admin Trade Name Freq PRN Reason Stop Dose Admin Furosemide 40 mg 11/16/18 09:00 11/16/18 10:56 Lasix PO 40 mg DAILY JAZLYN Administration Sodium Chloride 1,000 mls @ 110 mls/hr 11/15/18 15:30 11/16/18 04:46 Ns Inj IV.CONT 110 mls/hr .Q9H6M JAZLYN Administration Albumin Human 50 mls @ 60 mls/hr 11/15/18 23:00 11/16/18 11:00 Flexbumin 25% Inj IV.SIG 60 mls/hr Q12H JAZLYN Administration Ceftriaxone Sodium 1,000 mg/ 100 mls @ 200 mls/hr 11/16/18 09:00 11/16/18 10: 57 Sodium Chloride IV.SIG 200 mls/hr Q12H JAZLYN Administration Sodium Chloride 2 ml 11/15/18 21:00 11/16/18 10:59 Ns Flush IV.FLUSH 2 ml BID JAZLYN Administration Objective Remarks: GENERAL: Well-nourished, well-developed patient. SKIN: Pale, slightly jaundiced, warm and dry. HEAD: Normocephalic. EYES: No scleral icterus. No injection or drainage. MOUTH: [place] moist mucous membranes, no lesions noted. One petechiae spot to soft palate. NECK: Supple, trachea midline. CARDIOVASCULAR: + Tachycardic. RESPIRATORY: Posterior breath sounds with scattered rhonchi, equal bilaterally. + Dyspneic GASTROINTESTINAL: Abdomen round, non-tender, distended. EXTREMITIES: No cyanosis, or edema. Bilateral sequentials to BLE MUSCULOSKELETAL: Adequate muscle tone. NEUROLOGICAL: No obvious focal deficit. Awake, alert, and oriented x3. PSYCHIATRIC: Appropriate mood and affect; insight and judgment normal. Assessment/Plan - Plan Mr. Gallagher is a 43-year-old male patient, who presented to the hospital with chest pain. He reports a recent move to [place] from [place]. He has a history of IV drug use, last used 3 months ago. He denies EtOH abuse. Hematology was consulted for severe anemia and thrombocytopenia. Plan: 1. Anemia with severe thrombocytopenia, differentials include sepsis, hemolysis , hepatitis or primary bone marrow disorder. Laboratory findings consistent with intravascular hemolysis: Increased reticulocyte count 6.0, low haptoglobin< 10, significantly increased LDH of 702, increased bilirubin 2.2, urine hemoglobin positive, INR normal. Will obtain fibrinogen, d-dimer. Peripheral smear is pending. Elevated B12, normal folate, rheumatoid factor negative and MILKA is pending. Maria Teresa negative. 2. Consideration of sepsis, blood cultures negative times 1 day. Obtain echocardiogram to rule out vegetation given patient's history of IV drug use. 3. Continue to monitor closely for bleeding. Will repeat CBC in the a.m. 4. Consult IR for bone marrow biopsy in the a.m. - Attending Statement The exam, history, and the medical decision-making described in the above note were completed with the assistance of the mid-level provider. I reviewed and agree with the findings presented. I attest that I had a [id number] encounter with the patient on the same day, and personally performed and documented my assessment and findings in the medical record. She denies any new complaint Repeat CBC still shows thrombocytopenia and anemia Workup so far is negative except this shows that he has hepatitis C Medical team is managing hepatitis C I have discussed with the patient regarding bone marrow aspirate and biopsy to evaluate for any underlying bone marrow pathology. He agrees with that. Consult IR for bone marrow aspiration biopsy to be done tomorrow Continue to monitor CBC. Discussed with medical team
[2018-11-16] MEDS: Benzonatate 100 MG Capsule PO PRN (22:38)
[2018-11-17 08:08] LABS: Baso # (Auto) 0.1 th/mm3 (0.0-0.2); Baso % (Auto) 0.7 % (0.0-2.0); Eos % (Auto) 0.4 % (0.0-4.0); Lymph # (Auto) 1.5 th/mm3 (1.0-4.8); Lymph % (Auto) 16.9 % (9.0-44.0); Mean Corpuscular HGB Conc 32.1 % (32.0-36.0); Mean Corpuscular Hemoglobin 27.7 pg (27.0-34.0); Mean Corpuscular Volume 86.3 fL (80.0-100.0); Mean Platelet Volume 10.3 fL (7.0-11.0); Mono # (Auto) 0.7 th/mm3 (0.0-0.9); Mono % (Auto) 7.8 % (0.0-8.0); Neut # (Auto) 6.7 th/mm3 (1.8-7.7); Neut % (Auto) 74.2 % (16.0-70.0); Red Blood Count 2.43 mil/mm3 (4.50-5.90); Red Cell Distribution Width 23.9 % (11.6-17.2)
[2018-11-17 08:21] LABS: Hemoglobin 6.7 gm/dL (13.0-17.0); Platelet Count 14 th/mm3 (150-450)
[2018-11-17 08:35] LABS: D-Dimer 9.97 mg/L FEU (0.00-0.50)
--- NOTE | 2018-11-17 08:35 | P.PNFP ---
Subjective Interval history: Patient seen and examined. Complaining of dry cough that started last night. Better with Tessalon Perles. Otherwise feeling well. Notes mild abdominal fullness, but denies significant pain at rest. He has mild swelling of bilateral lower extremities. Denies headache, nausea, vomiting, chest pain, or leg pain. Discussed bone marrow biopsy with heme/onc yesterday, who told him that he would go for the procedure this morning, however, this will be postponed due to anemia requiring transfusion and low platelet level. All questions answered. <Tonja Kelley B - 11/17/18 11:48> Results - Labs Result diagrams: 11/17/18 07:46 11/17/18 07:46 <Huy Pandey - 11/17/18 11:53> Abnormal lab results 11/17/18 11/17/18 11/17/18 Range/Units 07:46 07:46 07:46 RBC 2.43 L (4.50-5.90) mil/mm3 Hgb 6.7 L* (13.0-17.0) gm/dL Hct 21.0 L (39.0-51.0) % RDW 23.9 H (11.6-17.2) % Plt Count 14 L* (150-450) th/mm3 Neut % (Auto) 74.2 H (16.0-70.0) % Toxic Granulation 1+ H (None) Platelet Estimate Rare L (Normal) Polychromasia 2.0 H (0.0-1.9) % Fibrinogen 174 L (227-377) mg/dL D-Dimer Quant (PE/DVT) 9.97 H (0.00-0.50) mg/L FEU Sodium 130 L (136-145) meq/L Carbon Dioxide 16.0 L (21.0-32.0) meq/L BUN 29 H (7-18) mg/dL Creatinine 1.36 H (0.60-1.30) mg/dL Estimated GFR 57 L (>89) mL/min Calcium 6.9 L* (8.5-10.1) mg/dL Calcium Adj for Albumin 8.3 L (8.5-10.1) mg/dL Total Bilirubin 1.7 H (0.2-1.0) mg/dL Direct Bilirubin 1.1 H (0.0-0.2) mg/dL Alkaline Phosphatase 121 H (45-117) U/L Lactate Dehydrogenase 626 H (87-241) U/L Total Protein 6.3 L D (6.4-8.2) g/dL Albumin 2.3 L (3.4-5.0) g/dL MTS Gel Crossmatch 11/17/18 Range/Units 08:36 RBC (4.50-5.90) mil/mm3 Hgb (13.0-17.0) gm/dL Hct (39.0-51.0) % RDW (11.6-17.2) % Plt Count (150-450) th/mm3 Neut % (Auto) (16.0-70.0) % Toxic Granulation (None) Platelet Estimate (Normal) Polychromasia (0.0-1.9) % Fibrinogen (227-377) mg/dL D-Dimer Quant (PE/DVT) (0.00-0.50) mg/L FEU Sodium (136-145) meq/L Carbon Dioxide (21.0-32.0) meq/L BUN (7-18) mg/dL Creatinine (0.60-1.30) mg/dL Estimated GFR (>89) mL/min Calcium (8.5-10.1) mg/dL Calcium Adj for Albumin (8.5-10.1) mg/dL Total Bilirubin (0.2-1.0) mg/dL Direct Bilirubin (0.0-0.2) mg/dL Alkaline Phosphatase (45-117) U/L Lactate Dehydrogenase (87-241) U/L Total Protein (6.4-8.2) g/dL Albumin (3.4-5.0) g/dL MTS Gel Crossmatch See Detail Short CBC 11/17/18 Range/Units 07:46 WBC 9.0 (4.0-11.0) th/mm3 Hgb 6.7 L* (13.0-17.0) gm/dL Hct 21.0 L (39.0-51.0) % Plt Count 14 L* (150-450) th/mm3 BMP 11/17/18 07:46 Sodium 130 L Potassium 3.9 Chloride 101 Carbon Dioxide 16.0 L BUN 29 H Creatinine 1.36 H Calcium 6.9 L* Liver Function 11/17/18 11/17/18 Range/Units 07:46 07:46 Total Bilirubin 1.7 H Cancelled (0.2-1.0) mg/dL Direct Bilirubin 1.1 H Cancelled (0.0-0.2) mg/dL AST 26 (15-37) U/L ALT 13 (12-78) U/L Alkaline Phosphatase 121 H (45-117) U/L Albumin 2.3 L (3.4-5.0) g/dL <Huy Pandey - 11/17/18 11:53> Abnormal lab results 11/16/18 11/16/18 11/17/18 Range/Units 07:38 09:54 07:46 RBC 2.43 L (4.50-5.90) mil/mm3 Hgb 6.7 L* (13.0-17.0) gm/dL Hct 21.0 L (39.0-51.0) % RDW 23.9 H (11.6-17.2) % Plt Count 14 L* (150-450) th/mm3 Neut % (Auto) 74.2 H (16.0-70.0) % Toxic Granulation 1+ H (None) Platelet Estimate Rare L (Normal) Polychromasia 2.0 H (0.0-1.9) % Tear Drop Cells 1+ H (None) Ovalocytes 1+ H (None) Keratocytes Occ H (None) PT 14.6 H (9.8-11.6) sec APTT 35.0 H (23.4-31.7) sec Short CBC 11/17/18 Range/Units 07:46 WBC 9.0 (4.0-11.0) th/mm3 Hgb 6.7 L* (13.0-17.0) gm/dL Hct 21.0 L (39.0-51.0) % Plt Count 14 L* (150-450) th/mm3 <Tonja Kelley - 11/17/18 08:35> - Imaging Impressions Abdomen Ultrasound 11/16/18 00:00 CONCLUSION: 1. Very small amount of ascites. 2. Lobulated hepatic contour suggestive of cirrhosis. Liver Ultrasound 11/16/18 00:00 CONCLUSION: 1. There is some ascites around the liver. Mildly fatty liver. The gallbladder wall is thickened, possibly related to the ascites. Negative sonographic Flanagan sign <Tonja Kelley B - 11/17/18 08:35> Physical Exam Vital signs: Vital Signs 11/16/18 12:00 11/16/18 16:00 11/16/18 17:13 Temperature 98.4 F 99.3 F Pulse Rate 100 H 107 H Respiratory Rate 19 18 Blood Pressure 126/61 109/57 L Pulse Oximetry 99 95 95 11/16/18 20:00 11/17/18 00:00 11/17/18 04:39 Temperature 98.1 F 97.9 F 97.6 F Pulse Rate 113 H 99 H 95 H Respiratory Rate 18 17 17 Blood Pressure 118/69 110/68 103/51 L Pulse Oximetry 95 99 98 11/17/18 08:00 Temperature 97.8 F Pulse Rate 94 H Respiratory Rate 17 Blood Pressure 104/65 Pulse Oximetry 98 Intake & Output 11/16/18 11/17/18 11/17/18 18:59 06:59 18:59 Intake Total 1150 / 1150 1150 / 1150 0 / 0 Balance 1150 / 1150 1150 / 1150 0 / 0 Weight 68 kg Intake: IV 1150 / 1150 1150 / 1150 0 / 0 NS Inj 1,000 ML @ 110 mls/hr IV 1000 / 1000 1000 / 1000 0 / 0 .CONT .Q9H6M JAZLYN Rx#:[id number] Flexbumin 25% Inj 50 ML @ 60 50 / 50 50 / 50 mls/hr IV.SIG Q12H JAZLYN Rx#: [id number] Rocephin Inj 1,000 MG In NS Inj 100 / 100 100 / 100 100 ML @ 200 mls/hr IV.SIG Q12H JAZLYN Rx#:[id number] Other: # Voids 3 <Huy Pandey - 11/17/18 11:53> Vital Signs 11/16/18 12:00 11/16/18 16:00 11/16/18 17:13 Temperature 98.4 F 99.3 F Pulse Rate 100 H 107 H Respiratory Rate 19 18 Blood Pressure 126/61 109/57 L Pulse Oximetry 99 95 95 11/16/18 20:00 11/17/18 00:00 11/17/18 04:39 Temperature 98.1 F 97.9 F 97.6 F Pulse Rate 113 H 99 H 95 H Respiratory Rate 18 17 17 Blood Pressure 118/69 110/68 103/51 L Pulse Oximetry 95 99 98 Intake & Output 11/16/18 11/17/18 11/17/18 18:59 06:59 18:59 Intake Total 1150 / 1150 1150 / 1150 Balance 1150 / 1150 1150 / 1150 Weight 68 kg Intake: IV 1150 / 1150 1150 / 1150 NS Inj 1,000 ML @ 110 mls/hr IV 1000 / 1000 1000 / 1000 .CONT .Q9H6M JAZLNY Rx#:[id number] Flexbumin 25% Inj 50 ML @ 60 50 / 50 50 / 50 mls/hr IV.SIG Q12H JAZLYN Rx#: [id number] Rocephin Inj 1,000 MG In NS Inj 100 / 100 100 / 100 100 ML @ 200 mls/hr IV.SIG Q12H JAZLYN Rx#:[id number] Other: # Voids 3 <Tonja Kelley 11/17/18 08:35> Narrative: GENERAL: 43-year-old, well nourished, well developed male sitting up in bed. In no acute distress. SKIN: Warm and dry. Pale, mildly yellow. HEAD: Atraumatic. Normocephalic. EYES: EMOI. PERRLA. No injection or drainage. ENT: No nasal bleeding or discharge. Mucous membranes pale pink and moist. Airway patent. CARDIOVASCULAR: Regular rate and rhythm. Systolic ejection at sternal border murmur. RESPIRATORY: No accessory muscle use. Clear to auscultation with equal breath sounds. No crackles, wheeze, rales or rhonchi. GASTROINTESTINAL: Bowel sounds in all 4 quadrants. Abdomen mild distended, mildly tender to palpation in lower quadrants. MUSCULOSKELETAL: Extremities without clubbing, cyanosis. 1+ edema of bilateral lower extremities up to mid ward. No obvious deformities. No calf tenderness. NEUROLOGICAL: Awake and alert. No obvious cranial nerve deficits. Motor grossly within normal limits. PSYCHIATRIC: Appropriate mood and affect; insight and judgment normal. 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 - Infarction of spleen Status: Acute (9) Aortic stenosis Code(s): I35.0 - Nonrheumatic aortic (valve) stenosis Status: Chronic (10) Hx of intravenous drug use, in remission Code(s): Z87.898 - Personal history of other specified conditions Status: Chronic (11) Nutrition, metabolism, and development symptoms Code(s): R63.8 - Other symptoms and signs concerning food and fluid intake Status: Acute (12) DVT prophylaxis Status: Acute <Huy Pandey - 11/17/18 11:53> (1) Thrombocytopenia Code(s): D69.6 - Thrombocytopenia, unspecified Status: Acute (2) Anemia Code(s): D64.9 - Anemia, unspecified Status: Acute (3) Ascites Code(s): R18.8 - Other ascites Status: Acute (4) Abdominal pain Code(s): R10.9 - Unspecified abdominal pain Status: Acute (5) Nausea and vomiting Code(s): R11.2 - Nausea with vomiting, unspecified Status: Acute (6) Cough Code(s): R05 - Cough Status: Acute (7) Hyponatremia Code(s): E87.1 - Hypo-osmolality and hyponatremia Status: Acute (8) Splenic infarct Code(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.5 - Infarction of spleen Status: Acute (9) Aortic stenosis Code(s): I35.0 - Nonrheumatic aortic (valve) stenosis Status: Chronic (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 d/w Dr Medina, will eventually get BM biopsy, no shistocytes to suggest TTP -hold anticoagulants Hematology following. DDx includes sepsis, hemolysis, hepatitis, primary bone disorder. -Ordered fibrinogen, d-dimer, and a rheumatoid factor Cough -Tesoctavioon Darlene -Chest x-ray ordered -Currently on Rocephin for empiric management of SBP Abdominal pain SBP v Splenic infarcts -Treating SBP empirically with ceftriaxone IV 1 g daily -Avoid Tylenol and NSAIDs with suspected cirrhosis and solitary kidney -Abdominal ultrasound showed small amount of ascites Ascites -Continue daily lasix -With severe thrombocytopenia, will hold off on paracentesis. Only small amount of fluid visualized on ultrasound. Paracentesis would not likely be therapeutic. -Continue empiric treatment for SBP -May consider diagnostic paracentesis when platelets level rise Liver failure does appear to have dysfunction has possibly NAFLD on imaging -autoimmune liver panel ordered Splenic infarcts hypercoaguable, possibly from liver dysfunction --Right upper quadrant ultrasound showed mildly fatty liver, thickened gallbladder wall possibly related to the ascites, negative sonographic Flanagan sign, no obvious defects of the aorta, IVC or portal vasculature -Echocardiogram ordered in case embolic source -blood cultures no growth to date times 2 days -conservative management now hypotension expect BPs to run low in ascitic patient -Albumin infusion every 12hr hypo Na status post NS infusion, improved some suspect more cirrhotic picture -will see if it improves with albumin and lasix solitary left kidney -Avoid nephrotoxic meds + HCV antibody last exposure 3 months ago -HCV Quant and Genotype pending FEN Fluids: IVF held. Tolerating p.o. fluids well. Electrodes: Hyponatremia improving Nutrition: Regular diet DVT prophylaxis SCDs and compression hose dw Dr. Pandey and Dr. Nayak <Tonja Kelley - 11/17/18 11:48> - Attending Attestation The exam, history, and the medical decision-making described in the above note were completed with the assistance of the resident physician. I reviewed and agree with the findings presented. I attest that I had a [id number] encounter with the patient on the same day, and personally performed and documented my assessment and findings in the medical record. having some abd pain today but breathing ok, more edema. for some reason fluids had been continued. Hgb dropped stopping these and will give some diuresis with blood admin Will likely add spironolactone to his lasix in the next couple days as we watch electrolytes and fluid status BM biopsy postponed for better lab stability. HCV VL pending. add on AFP <Huy Pandey - 11/17/18 11:53>
[2018-11-17 08:57] LABS: Albumin 2.3 g/dL (3.4-5.0); Calcium 6.9 mg/dL (8.5-10.1); Potassium 3.9 meq/L (3.5-5.1); Total Protein 6.3 g/dL (6.4-8.2)
[2018-11-17] MEDS ORDERED: Sodium Chlor 0.9% Inj 250 ML IV.SIG SCH (09:00)
[2018-11-17] MEDS: Albumin Human 25% Inj 50 ML IV.SIG SCH ×2 (10:06→22:49)
[2018-11-17] MEDS: Furosemide 40 MG Tablet PO SCH (10:11)
[2018-11-17 10:12] LABS: Toxic Granulation 1+
[2018-11-17 10:14] LABS: Platelet Estimate Rare (Normal); Platelet Morphology Normal (Normal)
[2018-11-17] MEDS: Sod Chloride 0.9% Inj 1,000 ML IV.CONT SCH (10:17)
[2018-11-17] MEDS ORDERED: Morphine Inj 4 MG/ML Vial IV.PUSH PRN (11:23)
[2018-11-17] MEDS ORDERED: Naloxone Inj 0.4 MG/ML Vial IV.PUSH PRN (11:23)
--- NOTE | 2018-11-17 14:17 | ECHRPT ---
Indication: congenital anomaly/ hx ivdu CONCLUSIONS Normal left ventricular size. Wall thickness is measured at the upper limits of normal. The left ventricular systolic function is low normal with an estimated ejection fraction of 50%. No regional wall motion abnormalities are present. Mild thickening of the mitral valve leaflets. Mild mitral valve regurgitation. 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 Mild aortic regurgitation. Moderate aortic valve stenosis with a mean transvalvular aortic valve m diamond gradient of 32 mmhg. There is moderate to severe tricuspid regurgitation. The estimated pulmonary arterial pressure is 7 5 mmHg. BP: / HR: Rhythm: MEASUREMENTS (Male / Female) Normal Values Technical Quality: 2D ECHO LV Diastolic Diameter PLAX 5.6 cm 4.2 - 5.9 / 3.9 - 5.3 cm LV Systolic Diameter PLAX 4.3 cm IVS Diastolic Thickness 1.1 cm 0.6 - 1.0 / 0.6 - 0.9 cm LVPW Diastolic Thickness 1.3 cm 0.6 - 1.0 / 0.6 - 0.9 cm LV Relative Wall Thickness 0.4 RV Internal Dim ED PLAX 2.5 cm LVOT Diameter 1.7 cm Aortic Root Diameter 2.8 cm LA Systolic Diameter LX 4.1 cm 3.0 - 4.0 / 2.7 - 3.8 cm M-MODE Aortic Root Diameter MM 4.0 cm LA Systolic Diameter MM 4.4 cm LA Ao Ratio MM 1.1 AV Cusp Separation MM 1.5 cm DOPPLER AV Peak Velocity 374.6 cm/s AV Peak Gradient 56.1 mmHg AV Mean Gradient 32.0 mmHg AV Velocity Time Integral 59.7 cm AI Peak Velocity 258.0 cm/s AI Peak Gradient 26.6 mmHg AI Pressure Half Time 209.0 ms LVOT Peak Velocity 117.0 cm/s LVOT Peak Gradient 5.5 mmHg LVOT Velocity Time Integral 20.6 cm AV Area Cont Eq vti 0.8 cm AV Area Cont Eq pk 0.7 cm MV Peak Velocity 353.0 cm/s MV Peak Gradient 49.8 mmHg MV Mean Velocity 243.0 cm/s MV Mean Gradient 28.0 mmHg MV Area PHT 2.5 cm Mitral E Point Velocity 117.0 cm/s TR Peak Velocity 404.0 cm/s TR Peak Gradient 65.3 mmHg Right Atrial Pressure 10.0 mmHg Pulmonary Artery Systolic Pressu 75.3 mmHg Right Ventricular Systolic Press 75.3 mmHg PV Peak Velocity 54.8 cm/s PV Peak Gradient 1.2 mmHg FINDINGS LEFT VENTRICLE Normal left ventricular size. Wall thickness is measured at the upper limits of normal. The left ventricular systolic function is low normal with an estimated ejection fraction of 50%. No regional wall motion abnormalities are present. RIGHT VENTRICLE Normal right ventricular size and systolic function. LEFT ATRIUM The left atrial size is upper normal. RIGHT ATRIUM The right atrial size is normal. ATRIAL SEPTUM Normal atrial septal thickness without atrial level shunting by limited color doppler interrogation. AORTA The aortic root and proximal ascending aorta are normal in size on limited imaging. MITRAL VALVE Mild thickening of the mitral valve leaflets. Mild mitral valve regurgitation. 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 Mild aortic regurgitation. Moderate aortic valve stenosis with a mean transvalvular aortic valve m diamond gradient of 32 mmhg. TRICUSPID VALVE There is moderate to severe tricuspid regurgitation. The estimated pulmonary arterial pressure is 75 mmHg. PULMONARY VALVE No pulmonary valve regurgitation or stenosis. VESSELS The inferior vena cava is normal in size. PERICARDIUM A small left sided pleural effusion is noted. Kory Saucedo MD (Electronically Signed) Final Date:17 November 2018 14:16
--- NOTE | 2018-11-17 15:05 | P.PNONC ---
Subjective Interval history: Patient sitting up in bed, family members at bedside. In no acute distress. Currently receiving first unit of PRBCs. Denies any chest pain, shortness of breath or bleeding. Reports lower abdominal pain. Objective Vital Signs/Intake & Output: Vital Signs 11/16/18 16:00 11/16/18 17:13 11/16/18 20:00 Temperature 99.3 F 98.1 F Pulse Rate 107 H 113 H Respiratory Rate 18 18 Blood Pressure 109/57 L 118/69 Pulse Oximetry 95 95 95 11/17/18 00:00 11/17/18 04:39 11/17/18 08:00 Temperature 97.9 F 97.6 F 97.8 F Pulse Rate 99 H 95 H 94 H Respiratory Rate 17 17 17 Blood Pressure 110/68 103/51 L 104/65 Pulse Oximetry 99 98 98 11/17/18 12:00 11/17/18 13:18 11/17/18 13:28 Temperature 98.4 F 98.2 F Pulse Rate 92 H 91 H Respiratory Rate 17 16 Blood Pressure 106/58 L 99/59 L 101/65 Pulse Oximetry 100 100 Intake & Output 11/16/18 11/17/18 11/17/18 18:59 06:59 18:59 Intake Total 1150 / 1150 1150 / 1150 1150 / 1150 Balance 1150 / 1150 1150 / 1150 1150 / 1150 Weight 68 kg Intake: IV 1150 / 1150 1150 / 1150 1150 / 1150 NS Inj 1,000 ML @ 110 mls/hr IV 1000 / 1000 1000 / 1000 1000 / 1000 .CONT .[id number] JAZLYN Rx#:[id number] Flexbumin 25% Inj 50 ML @ 60 50 / 50 50 / 50 50 / 50 mls/hr IV.SIG Q12H JAZLYN Rx#: [id number] Rocephin Inj 1,000 MG In NS Inj 100 / 100 100 / 100 100 / 100 100 ML @ 200 mls/hr IV.SIG Q12H JAZLYN Rx#:[id number] Intake (Blood Product) Amt 0 / 0 Rbc As-3 Leukoreduced Unit 0 / 0 [id number] Other: # Voids 3 Date of Last Bowel Movement 11/14/18 Result Diagrams: 11/17/18 07:46 11/17/18 07:46 Laboratory Results: Laboratory Results - last 24 hr 11/16/18 11/17/18 11/17/18 07:38 07:46 07:46 WBC 9.0 RBC 2.43 L Hgb 6.7 L* Hct 21.0 L MCV 86.3 MCH 27.7 MCHC 32.1 RDW 23.9 H Plt Count 14 L* MPV 10.3 Prelim Diff (Auto) Slide review pending Neut % (Auto) 74.2 H Lymph % (Auto) 16.9 Mcmullen % (Auto) 7.8 Eos % (Auto) 0.4 Baso % (Auto) 0.7 Neut # (Auto) 6.7 Lymph # (Auto) 1.5 Mcmullen # (Auto) 0.7 Eos # (Auto) 0.0 Baso # (Auto) 0.1 WBC Differential . Diff Scan Auto diff confirmed Differential Comment . Toxic Granulation 1+ H Platelet Estimate Rare L Platelet Morphology Normal Polychromasia 2.0 H Fibrinogen 174 L D-Dimer Quant (PE/DVT) 9.97 H Sodium Potassium Chloride Carbon Dioxide Anion Gap BUN Creatinine Estimated GFR Random Glucose Calcium Calcium Adj for Albumin Total Bilirubin Direct Bilirubin Indirect Bilirubin AST ALT Alkaline Phosphatase Lactate Dehydrogenase Total Protein Albumin MILKA Screen Neg MTS Gel Crossmatch 11/17/18 11/17/18 11/17/18 07:46 07:46 08:36 WBC RBC Hgb Hct MCV MCH MCHC RDW Plt Count MPV Prelim Diff (Auto) Neut % (Auto) Lymph % (Auto) Mcmullen % (Auto) Eos % (Auto) Baso % (Auto) Neut # (Auto) Lymph # (Auto) Mcmullen # (Auto) Eos # (Auto) Baso # (Auto) WBC Differential Diff Scan Differential Comment Toxic Granulation Platelet Estimate Platelet Morphology Polychromasia Fibrinogen D-Dimer Quant (PE/DVT) Sodium 130 L Potassium 3.9 Chloride 101 Carbon Dioxide 16.0 L Anion Gap 13 BUN 29 H Creatinine 1.36 H Estimated GFR 57 L Random Glucose 90 Calcium 6.9 L* Calcium Adj for Albumin 8.3 L Total Bilirubin 1.7 H Cancelled Direct Bilirubin 1.1 H Cancelled Indirect Bilirubin 0.6 Cancelled AST 26 ALT 13 Alkaline Phosphatase 121 H Lactate Dehydrogenase 626 H Cancelled Total Protein 6.3 L D Albumin 2.3 L MILKA Screen MTS Gel Crossmatch See Detail Culture Results: Microbiology 11/15/18 18:15 Aerobic Blood Culture - Preliminary Blood - Peripheral No growth in 2 days Anaerobic Blood Culture - Preliminary No growth in 2 days 11/15/18 18:30 Aerobic Blood Culture - Preliminary Blood - Peripheral No growth in 2 days Anaerobic Blood Culture - Preliminary No growth in 2 days Medications: Active Medications Generic Name Dose Route Start Last Admin Trade Name Freq PRN Reason Stop Dose Admin Benzonatate 100 mg 11/16/18 21:53 11/16/18 22:38 Tessalon Perles PO 100 mg Q8H PRN Administration COUGH Furosemide 40 mg 11/16/18 09:00 11/17/18 10:11 Lasix PO 40 mg DAILY JAZLYN Administration Albumin Human 50 mls @ 60 mls/hr 11/15/18 23:00 11/17/18 11:10 Flexbumin 25% Inj IV.SIG 11/18/18 23:59 Infused Q12H JAZLYN Infusion Ceftriaxone Sodium 1,000 mg/ 100 mls @ 200 mls/hr 11/16/18 09:00 11/17/18 13: 29 Sodium Chloride IV.SIG Infused Q12H JAZLYN Infusion Sodium Chloride 250 mls @ 15 mls/hr 11/17/18 09:00 11/17/18 13:00 Ns Inj IV.SIG 11/18/18 01:39 15 mls/hr ONCE JAZLYN Administration Sodium Chloride 2 ml 11/15/18 21:00 11/17/18 10:08 Ns Flush IV.FLUSH 2 ml BID JAZLYN Administration Objective Remarks: GENERAL: Well-nourished, well-developed patient. SKIN: Pale, slightly jaundiced, warm and dry. HEAD: Normocephalic. EYES: No scleral icterus. No injection or drainage. MOUTH: [place] moist mucous membranes, no lesions noted. NECK: Supple, trachea midline. CARDIOVASCULAR: Regular rate and rhythm. RESPIRATORY: Posterior breath sounds clear and equal bilaterally. GASTROINTESTINAL: Abdomen round, non-tender, distended. EXTREMITIES: No cyanosis, or edema. Bilateral sequentials to BLE MUSCULOSKELETAL: Adequate muscle tone. NEUROLOGICAL: No obvious focal deficit. Awake, alert, and oriented x3. PSYCHIATRIC: Appropriate mood and affect; insight and judgment normal. Assessment/Plan - Plan Mr. Gallagher is a 43-year-old male patient, who presented to the hospital with chest pain. He reports a recent move to [place] from [place]. He has a history of IV drug use, last used 3 months ago. He denies EtOH abuse. Hematology was consulted for severe anemia and thrombocytopenia. Plan: 1. Anemia with severe thrombocytopenia, differentials include sepsis, hemolysis , hepatitis or primary bone marrow disorder. Laboratory findings consistent with intravascular hemolysis: Increased reticulocyte count 6.0, low haptoglobin< 10, significantly increased LDH of 702, increased bilirubin 2.2, urine hemoglobin positive, INR normal. Fibrinogen 174, d-dimer 9.97. Peripheral smear suggests low-grade microangiopathic hemolytic process. Elevated B12, normal folate, rheumatoid factor negative and MILKA is negative. Maria Teresa negative. 2. Consideration of sepsis, blood cultures negative times 2 day. Echocardiogram shows aortic valve vegetation. 3. Continue to monitor closely for bleeding. Hemoglobin 6.7 g/dL, 2 units PRBCs ordered for today. Platelets 14,000. Hemoccult ordered. 4. Bone marrow biopsy ordered for today, placed on hold by attending due to lab instability. Will repeat CBC in the a.m. and discuss with interventional radiology. 5. Continue supportive measures. - Attending Statement The exam, history, and the medical decision-making described in the above note were completed with the assistance of the mid-level provider. I reviewed and agree with the findings presented. I attest that I had a [id number] encounter with the patient on the same day, and personally performed and documented my assessment and findings in the medical record. Patient denies any new complaint Hemoglobin dropped most likely delusional Transfuse 2 units of PRBC Bone marrow biopsy ordered for today but the medical team wants to postpone it. In my opinion patient should have bone marrow biopsy with his present blood count as we have done several times bone marrow biopsy with these level of low hemoglobin and platelets. In my opinion there is no contraindication to do the bone marrow biopsy. I wish medical team would have discussed with me before putting it on hold.
[2018-11-17] MEDS: Benzonatate 100 MG Capsule PO PRN (16:34)
--- NOTE | 2018-11-17 21:21 | XR ---
EXAM DATE: 11/17/2018 8:53 PM EST AGE/SEX: 43 years / Male INDICATIONS: . Cough. CLINICAL DATA: This is the patient's subsequent encounter. Patient reports that signs and symptoms h ave been present for 2 days and indicates a pain score of 2/10. MEDICAL/SURGICAL HISTORY: Congestive heart failure. Diabetes mellitus type II. Hypertension. Pacemaker. COMPARISON: No prior exams available for comparison. FINDINGS: AP and lateral views of the chest demonstrate the lungs to be symmetrically aerated without evidence of mass, infiltrate or effusion. The cardiomediastinal contours are unremarkable. Osseous structure s are intact. CONCLUSION: No acute cardiopulmonary Electronically signed by: Rob Walsh MD Board Certified Radiologist 11/17/2018 9:19 PM EST
[2018-11-18 07:33] LABS: Baso # (Auto) 0.1 th/mm3 (0.0-0.2); Baso % (Auto) 0.7 % (0.0-2.0); Eos # (Auto) 0.1 th/mm3 (0.0-0.4); Eos % (Auto) 0.9 % (0.0-4.0); Hematocrit 29.6 % (39.0-51.0); Hemoglobin 9.3 gm/dL (13.0-17.0); Lymph # (Auto) 1.9 th/mm3 (1.0-4.8); Lymph % (Auto) 14.5 % (9.0-44.0); Mean Corpuscular HGB Conc 31.6 % (32.0-36.0); Mean Corpuscular Hemoglobin 26.3 pg (27.0-34.0); Mean Corpuscular Volume 83.2 fL (80.0-100.0); Mono # (Auto) 1.1 th/mm3 (0.0-0.9); Mono % (Auto) 8.5 % (0.0-8.0); Neut # (Auto) 10.1 th/mm3 (1.8-7.7); Neut % (Auto) 75.4 % (16.0-70.0); Red Blood Count 3.56 mil/mm3 (4.50-5.90); White Blood Count 13.3 th/mm3 (4.0-11.0)
[2018-11-18 07:38] LABS: Calcium 7.5 mg/dL (8.5-10.1); Carbon Dioxide 17.4 meq/L (21.0-32.0); Potassium 3.7 meq/L (3.5-5.1)
[2018-11-18 07:39] LABS: Platelet Count 17 th/mm3 (150-450)
[2018-11-18] MEDS: Furosemide 40 MG Tablet PO SCH ×2 (08:35→17:44)
[2018-11-18] MEDS: Benzonatate 100 MG Capsule PO PRN (08:36)
--- NOTE | 2018-11-18 08:47 | P.PNFP ---
Subjective Interval history: Patient seen and examined. Patient notes abdominal pain, not worsening since admission. Does not think his abdomen is more tense than before. Patient's ended up getting norco x2 and morphine x1 last night, which he says related pain a lot of the sleep. Denies nausea, vomiting, chest pain or shortness of breath. Notes mild edema of bilateral lower extremities, about the same as admission. Patient states he has been mildly itchy following morphine administration last night. Per nursing staff, bone marrow biopsy was canceled by IR yesterday after he ate lunch. Bone marrow biopsy was rescheduled for this morning. All questions answered. <Tonja Kelley - 11/18/18 13:46> Results - Labs Result diagrams: 11/18/18 06:53 11/18/18 06:53 <Huy Pandey - 11/18/18 16:07> Abnormal lab results 11/17/18 11/18/18 11/18/18 Range/Units 08:36 06:53 06:53 WBC 13.3 H (4.0-11.0) th/mm3 RBC 3.56 L (4.50-5.90) mil/mm3 Hgb 9.3 L D (13.0-17.0) gm/dL Hct 29.6 L (39.0-51.0) % MCH 26.3 L (27.0-34.0) pg MCHC 31.6 L (32.0-36.0) % RDW 28.0 H D (11.6-17.2) % Plt Count 17 L* (150-450) th/mm3 Neut % (Auto) 75.4 H (16.0-70.0) % [place] % (Auto) 8.5 H (0.0-8.0) % Neut # (Auto) 10.1 H (1.8-7.7) th/mm3 [place] # (Auto) 1.1 H (0.0-0.9) th/mm3 Toxic Granulation 1+ H (None) Platelet Estimate Rare L (Normal) Polychromasia 2.0 H (0.0-1.9) % Sodium 127 L (136-145) meq/L Carbon Dioxide 17.4 L (21.0-32.0) meq/L BUN 33 H (7-18) mg/dL Estimated GFR 61 L (>89) mL/min Calcium 7.5 L (8.5-10.1) mg/dL MTS Gel Crossmatch See Detail Short CBC 11/18/18 Range/Units 06:53 WBC 13.3 H (4.0-11.0) th/mm3 Hgb 9.3 L D (13.0-17.0) gm/dL Hct 29.6 L (39.0-51.0) % Plt Count 17 L* (150-450) th/mm3 [facility] 11/18/18 06:53 Sodium 127 L Potassium 3.7 Chloride 98 Carbon Dioxide 17.4 L BUN 33 H Creatinine 1.30 Calcium 7.5 L <Huy Pandey - 11/18/18 16:07> Abnormal lab results 11/17/18 11/17/18 11/17/18 Range/Units 07:46 07:46 08:36 WBC (4.0-11.0) th/mm3 RBC (4.50-5.90) mil/mm3 Hgb (13.0-17.0) gm/dL Hct (39.0-51.0) % MCH (27.0-34.0) pg MCHC (32.0-36.0) % RDW (11.6-17.2) % Plt Count (150-450) th/mm3 Neut % (Auto) (16.0-70.0) % [place] % (Auto) (0.0-8.0) % Neut # (Auto) (1.8-7.7) th/mm3 [place] # (Auto) (0.0-0.9) th/mm3 Toxic Granulation 1+ H (None) Platelet Estimate Rare L (Normal) Polychromasia 2.0 H (0.0-1.9) % Sodium 130 L (136-145) meq/L Carbon Dioxide 16.0 L (21.0-32.0) meq/L BUN 29 H (7-18) mg/dL Creatinine 1.36 H (0.60-1.30) mg/dL Estimated GFR 57 L (>89) mL/min Calcium 6.9 L* (8.5-10.1) mg/dL Calcium Adj for Albumin 8.3 L (8.5-10.1) mg/dL Total Bilirubin 1.7 H (0.2-1.0) mg/dL Direct Bilirubin 1.1 H (0.0-0.2) mg/dL Alkaline Phosphatase 121 H (45-117) U/L Lactate Dehydrogenase 626 H (87-241) U/L Total Protein 6.3 L D (6.4-8.2) g/dL Albumin 2.3 L (3.4-5.0) g/dL MTS Gel Crossmatch See Detail 11/18/18 11/18/18 Range/Units 06:53 06:53 WBC 13.3 H (4.0-11.0) th/mm3 RBC 3.56 L (4.50-5.90) mil/mm3 Hgb 9.3 L D (13.0-17.0) gm/dL Hct 29.6 L (39.0-51.0) % MCH 26.3 L (27.0-34.0) pg MCHC 31.6 L (32.0-36.0) % RDW 28.0 H D (11.6-17.2) % Plt Count 17 L* (150-450) th/mm3 Neut % (Auto) 75.4 H (16.0-70.0) % [place] % (Auto) 8.5 H (0.0-8.0) % Neut # (Auto) 10.1 H (1.8-7.7) th/mm3 [place] # (Auto) 1.1 H (0.0-0.9) th/mm3 Toxic Granulation (None) Platelet Estimate (Normal) Polychromasia (0.0-1.9) % Sodium 127 L (136-145) meq/L Carbon Dioxide 17.4 L (21.0-32.0) meq/L BUN 33 H (7-18) mg/dL Creatinine (0.60-1.30) mg/dL Estimated GFR 61 L (>89) mL/min Calcium 7.5 L (8.5-10.1) mg/dL Calcium Adj for Albumin (8.5-10.1) mg/dL Total Bilirubin (0.2-1.0) mg/dL Direct Bilirubin (0.0-0.2) mg/dL Alkaline Phosphatase (45-117) U/L Lactate Dehydrogenase (87-241) U/L Total Protein (6.4-8.2) g/dL Albumin (3.4-5.0) g/dL MTS Gel Crossmatch Short CBC 11/18/18 Range/Units 06:53 WBC 13.3 H (4.0-11.0) th/mm3 Hgb 9.3 L D (13.0-17.0) gm/dL Hct 29.6 L (39.0-51.0) % Plt Count 17 L* (150-450) th/mm3 BMP 11/17/18 11/18/18 07:46 06:53 Sodium 130 L 127 L Potassium 3.9 3.7 Chloride 101 98 Carbon Dioxide 16.0 L 17.4 L BUN 29 H 33 H Creatinine 1.36 H 1.30 Calcium 6.9 L* 7.5 L Liver Function 11/17/18 11/17/18 Range/Units 07:46 07:46 Total Bilirubin 1.7 H Cancelled (0.2-1.0) mg/dL Direct Bilirubin 1.1 H Cancelled (0.0-0.2) mg/dL AST 26 (15-37) U/L ALT 13 (12-78) U/L Alkaline Phosphatase 121 H (45-117) U/L Albumin 2.3 L (3.4-5.0) g/dL <Tonja Kelley - 11/18/18 08:47> - Imaging Impressions Chest X-Ray 11/17/18 00:00 CONCLUSION: No acute cardiopulmonary <Huy Pandey - 11/18/18 16:07> Impressions Chest X-Ray 11/17/18 00:00 CONCLUSION: No acute cardiopulmonary <Tonja Kelley - 11/18/18 08:47> Physical Exam Vital signs: Vital Signs 11/17/18 16:00 11/17/18 16:30 11/17/18 20:00 Temperature 97.7 F 97.7 F 97.7 F Pulse Rate 101 H 101 H 95 H Respiratory Rate 20 20 19 Blood Pressure 109/75 109/75 111/61 Pulse Oximetry 100 100 98 11/17/18 23:55 11/18/18 08:00 11/18/18 10:43 Temperature 97.1 F L 97.5 F L 97.5 F L Pulse Rate 94 H 95 H 93 H Respiratory Rate 19 17 16 Blood Pressure 101/72 137/83 100/68 Pulse Oximetry 98 95 97 11/18/18 12:00 11/18/18 13:23 Temperature 97.5 F L 98.6 F Pulse Rate 93 H 98 H Respiratory Rate 16 20 Blood Pressure 100/68 100/65 Pulse Oximetry 97 Intake & Output 11/17/18 11/18/18 11/18/18 18:59 06:59 18:59 Intake Total 2510 / 2510 1050 / 1050 100 / 100 Balance 2510 / 2510 1050 / 1050 100 / 100 Weight 68 kg Intake: IV 1150 / 1150 150 / 150 100 / 100 NS Inj 1,000 ML @ 110 mls/hr IV 1000 / 1000 .CONT .Q9H6M JAZLYN Rx#:[id number] Flexbumin 25% Inj 50 ML @ 60 50 / 50 50 / 50 mls/hr IV.SIG Q12H JAZLYN Rx#: [id number] Rocephin Inj 1,000 MG In NS Inj 100 / 100 100 / 100 100 / 100 100 ML @ 200 mls/hr IV.SIG Q12H JAZLYN Rx#:[id number] Oral 960 / 960 500 / 500 Intake (Blood Product) Amt 400 / 400 400 / 400 0 / 0 Prepooled Plts Leukoreduced 5d 0 / 0 Unit [id number] Prepooled Plts Leukoreduced 5d 0 / 0 Unit [id number] Rbc As-3 Leukoreduced Unit 400 / 400 [id number] Rbc As-3 Leukoreduced Unit 0 / 0 400 / 400 [id number] Other: # Voids 4 3 Date of Last Bowel Movement 11/17/18 11/17/18 # Bowel Movements 1 <Huy Pandey K - 11/18/18 16:07> Vital Signs 11/17/18 12:00 11/17/18 13:18 11/17/18 13:28 Temperature 98.4 F 98.2 F Pulse Rate 92 H 91 H Respiratory Rate 17 16 Blood Pressure 106/58 L 99/59 L 101/65 Pulse Oximetry 100 100 11/17/18 16:00 11/17/18 16:30 11/17/18 20:00 Temperature 97.7 F 97.7 F 97.7 F Pulse Rate 101 H 101 H 95 H Respiratory Rate 20 20 19 Blood Pressure 109/75 109/75 111/61 Pulse Oximetry 100 100 98 11/17/18 23:55 11/18/18 08:00 Temperature 97.1 F L 97.5 F L Pulse Rate 94 H 95 H Respiratory Rate 19 17 Blood Pressure 101/72 137/83 Pulse Oximetry 98 95 Intake & Output 11/17/18 11/18/18 11/18/18 18:59 06:59 18:59 Intake Total 2510 / 2510 1050 / 1050 Balance 2510 / 2510 1050 / 1050 Weight 68 kg Intake: IV 1150 / 1150 150 / 150 NS Inj 1,000 ML @ 110 mls/hr IV 1000 / 1000 .CONT .Q9H6M JAZLYN Rx#:[id number] Flexbumin 25% Inj 50 ML @ 60 50 / 50 50 / 50 mls/hr IV.SIG Q12H JAZLYN Rx#: [id number] Rocephin Inj 1,000 MG In NS Inj 100 / 100 100 / 100 100 ML @ 200 mls/hr IV.SIG Q12H JAZLYN Rx#:[id number] Oral 960 / 960 500 / 500 Intake (Blood Product) Amt 400 / 400 400 / 400 Rbc As-3 Leukoreduced Unit 400 / 400 [id number] Rbc As-3 Leukoreduced Unit 0 / 0 400 / 400 [id number] Other: # Voids 4 3 Date of Last Bowel Movement 11/17/18 11/17/18 # Bowel Movements 1 <Tonja Kelley - 11/18/18 08:47> Narrative: GENERAL: 43-year-old, well nourished, well developed male sitting up in bed. In no acute distress. SKIN: Warm and dry. Pale, mildly yellow. HEAD: Atraumatic. Normocephalic. EYES: EMOI. PERRLA. No injection or drainage. ENT: No nasal bleeding or discharge. Mucous membranes pale pink and moist. Airway patent. CARDIOVASCULAR: Regular rate and rhythm. Systolic ejection at sternal border murmur. RESPIRATORY: No accessory muscle use. Clear to auscultation with equal breath sounds. No crackles, wheeze, rales or rhonchi. GASTROINTESTINAL: Bowel sounds in all 4 quadrants. Abdomen mild distended, mildly tender to palpation in lower quadrants. MUSCULOSKELETAL: Extremities without clubbing, cyanosis. 1+ edema of bilateral lower extremities up to mid ward. No obvious deformities. No calf tenderness. NEUROLOGICAL: Awake and alert. No obvious cranial nerve deficits. Motor grossly within normal limits. PSYCHIATRIC: Appropriate mood and affect; insight and judgment normal. <Tonja Kelley - 11/18/18 13:46> Assessment and Plan - Assessment (1) Thrombocytopenia Code(s): D69.6 - Thrombocytopenia, unspecified Status: Acute (2) Anemia Code(s): D64.9 - Anemia, unspecified Status: Acute (3) Ascites Code(s): R18.8 - Other ascites Status: Acute (4) Abdominal pain Code(s): R10.9 - Unspecified abdominal pain Status: Acute (5) Nausea and vomiting Code(s): R11.2 - Nausea with vomiting, unspecified Status: Acute (6) Cough Code(s): R05 - Cough Status: Acute (7) Hyponatremia Code(s): E87.1 - Hypo-osmolality and hyponatremia Status: Acute (8) Splenic infarct Code(s): D73.5 - Infarction of spleen Status: Acute (9) Aortic stenosis Code(s): I35.0 - Nonrheumatic aortic (valve) stenosis Status: Chronic (10) Hx of intravenous drug use, in remission Code(s): Z87.898 - Personal history of other specified conditions Status: Chronic (11) Nutrition, metabolism, and development symptoms Code(s): R63.8 - Other symptoms and signs concerning food and fluid intake Status: Acute (12) DVT prophylaxis Status: Acute <Huy Pandey Wilfredo - 11/18/18 16:07> (1) Thrombocytopenia Code(s): D69.6 - Thrombocytopenia, unspecified Status: Acute (2) Anemia Code(s): D64.9 - Anemia, unspecified Status: Acute (3) Ascites Code(s): R18.8 - Other ascites Status: Acute (4) Abdominal pain Code(s): R10.9 - Unspecified abdominal pain Status: Acute (5) Nausea and vomiting Code(s): R11.2 - Nausea with vomiting, unspecified Status: Acute (6) Cough Code(s): R05 - Cough Status: Acute (7) Hyponatremia Code(s): E87.1 - Hypo-osmolality and hyponatremia Status: Acute (8) Splenic infarct Code(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 d/w Dr Medina, will eventually get BM biopsy, no shistocytes to suggest TTP -hold anticoagulants Hematology following. DDx includes sepsis, hemolysis, hepatitis, primary bone disorder. -Ordered fibrinogen, d-dimer, and a rheumatoid factor -Bone marrow biopsy to be performed today -2 units of platelets ordered for transfusion prior to and during procedure. Abdominal pain SBP v Splenic infarcts -Treating SBP empirically with ceftriaxone IV 1 g daily -Avoid Tylenol and NSAIDs with suspected cirrhosis and solitary kidney -Pain scale with oxycodone -Abdominal ultrasound showed small amount of ascites Ascites -With severe thrombocytopenia, will hold off on paracentesis. Only small amount of fluid visualized on ultrasound. Paracentesis would not likely be therapeutic. 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 Large mobile irregular mass approximately 1-2 cm encompassing most of aortic leaflets, consistent with vegetation on the aortic valve. -1 of 2 blood cultures positive for gram-positive cocci at 3 days of growth, likely staph aureus due to history of IV drug use -Vancomycin IV started on (11/18/18 - ), renally dosed per pharmacy Anemia, improved H&H 6.7 yesterday a.m., post transfusion H&H 9.3 - status post 2 units packed red blood cells yesterday -20 mg IV Lasix to be given following first unit of PRBCs Cough -Tessalon Perles -Chest x-ray on 11/17 showed no acute cardiopulmonary process -Currently on Rocephin for empiric management of SBP Liver failure does appear to have dysfunction has possibly NAFLD on imaging -autoimmune liver panel ordered Splenic infarcts hypercoaguable, possibly from liver dysfunction -Right upper quadrant ultrasound showed mildly fatty liver, thickened gallbladder wall possibly related to the ascites, negative sonographic Flanagan sign, no obvious defects of the aorta, IVC or portal vasculature -Echocardiogram ordered in case embolic source -blood cultures no growth to date times 2 days -conservative management now hypotension expect BPs to run low in ascitic patient -Albumin infusion every 12hr hypo Na status post NS infusion, improved some suspect more cirrhotic picture -will see if it improves with albumin and Lasix solitary left kidney -Avoid nephrotoxic meds + HCV antibody last exposure 3 months ago -HCV Quant and Genotype pending FEN Fluids: IVF held. Tolerating p.o. fluids well. Electrodes: Hyponatremia improving Nutrition: Regular diet DVT prophylaxis SCDs and compression hose dw Dr. Pandey <Tonja Kelley - 11/18/18 13:46> - Attending Attestation The exam, history, and the medical decision-making described in the above note were completed with the assistance of the resident physician. I reviewed and agree with the findings presented. I attest that I had a [id number] encounter with the patient on the same day, and personally performed and documented my assessment and findings in the medical record. Pain better, did receive IV morphine. discussed at length risks of him with IV opiates and neither of us want to see him struggle with addiction. Discussed that endocarditis diagnosis means many weeks of antibiotics and likely a long hospital stay given IV drug use. Adding vancomycin for coverage while s/s pending. Repeat blood cultures Thrombocytopenia persistent but not decreasing, getting BM biopsy today. Anemia improved after transfusion edema not improved, but as sodium lower today, will double lasix instead of adding spironolactone and trend sodiums and volume status albumin infusion ends today. HCV VL pending <Huy Pandey - 11/18/18 16:07>
[2018-11-18] MEDS ORDERED: Vancomycin Consult Pharmacy OTHER PRN (08:50)
[2018-11-18 08:53] LABS: Platelet Estimate Rare (Normal); Platelet Morphology Normal (Normal); Toxic Granulation 1+
[2018-11-18] MEDS ORDERED: Vancomycin Inj 500 MG in Sodium Chlor 0.9% Inj 100 ML IV.SIG SCH (09:00)
--- NOTE | 2018-11-18 09:11 | P.PNONC ---
Subjective Interval history: Patient lying in bed, in no acute distress. He reports "I am finally getting my bone marrow biopsy today" He denies any chest pain, shortness of breath or bleeding. Objective Vital Signs/Intake & Output: Vital Signs 11/17/18 12:00 11/17/18 13:18 11/17/18 13:28 Temperature 98.4 F 98.2 F Pulse Rate 92 H 91 H Respiratory Rate 17 16 Blood Pressure 106/58 L 99/59 L 101/65 Pulse Oximetry 100 100 11/17/18 16:00 11/17/18 16:30 11/17/18 20:00 Temperature 97.7 F 97.7 F 97.7 F Pulse Rate 101 H 101 H 95 H Respiratory Rate 20 20 19 Blood Pressure 109/75 109/75 111/61 Pulse Oximetry 100 100 98 11/17/18 23:55 11/18/18 08:00 Temperature 97.1 F L 97.5 F L Pulse Rate 94 H 95 H Respiratory Rate 19 17 Blood Pressure 101/72 137/83 Pulse Oximetry 98 95 Intake & Output 11/17/18 11/18/18 11/18/18 18:59 06:59 18:59 Intake Total 2510 / 2510 1050 / 1050 Balance 2510 / 2510 1050 / 1050 Weight 68 kg Intake: IV 1150 / 1150 150 / 150 NS Inj 1,000 ML @ 110 mls/hr IV 1000 / 1000 .CONT .Q9H6M JAZLYN Rx#:[id number] Flexbumin 25% Inj 50 ML @ 60 50 / 50 50 / 50 mls/hr IV.SIG Q12H JAZLYN Rx#: [id number] Rocephin Inj 1,000 MG In NS Inj 100 / 100 100 / 100 100 ML @ 200 mls/hr IV.SIG Q12H JAZLYN Rx#:[id number] Oral 960 / 960 500 / 500 Intake (Blood Product) Amt 400 / 400 400 / 400 Rbc As-3 Leukoreduced Unit 400 / 400 [id number] Rbc As-3 Leukoreduced Unit 0 / 0 400 / 400 [id number] Other: # Voids 4 3 Date of Last Bowel Movement 11/17/18 11/17/18 # Bowel Movements 1 Result Diagrams: 11/18/18 06:53 11/18/18 06:53 Laboratory Results: Laboratory Results - last 24 hr 11/16/18 11/17/18 11/17/18 07:38 07:46 07:46 WBC RBC Hgb Hct MCV MCH MCHC RDW Plt Count MPV Prelim Diff (Auto) Neut % (Auto) Lymph % (Auto) [place] % (Auto) Eos % (Auto) Baso % (Auto) Neut # (Auto) Lymph # (Auto) [place] # (Auto) Eos # (Auto) Baso # (Auto) WBC Differential . Diff Scan Auto diff confirmed Differential Comment Toxic Granulation 1+ H Platelet Estimate Rare L Platelet Morphology Normal Polychromasia 2.0 H Sodium 130 L Potassium 3.9 Chloride 101 Carbon Dioxide 16.0 L Anion Gap 13 BUN 29 H Creatinine 1.36 H Estimated GFR 57 L Random Glucose 90 Calcium 6.9 L* Calcium Adj for Albumin 8.3 L Total Bilirubin 1.7 H Direct Bilirubin 1.1 H Indirect Bilirubin 0.6 AST 26 ALT 13 Alkaline Phosphatase 121 H Lactate Dehydrogenase 626 H Total Protein 6.3 L D Albumin 2.3 L Tumor Marker AFP [place] Screen Neg MTS Gel Crossmatch 11/17/18 11/17/18 11/18/18 07:46 08:36 06:53 WBC RBC Hgb Hct MCV MCH MCHC RDW Plt Count MPV Prelim Diff (Auto) Neut % (Auto) Lymph % (Auto) [place] % (Auto) Eos % (Auto) Baso % (Auto) Neut # (Auto) Lymph # (Auto) [place] # (Auto) Eos # (Auto) Baso # (Auto) WBC Differential Diff Scan Differential Comment Toxic Granulation Platelet Estimate Platelet Morphology Polychromasia Sodium Potassium Chloride Carbon Dioxide Anion Gap BUN Creatinine Estimated GFR Random Glucose Calcium Calcium Adj for Albumin Total Bilirubin Cancelled Direct Bilirubin Cancelled Indirect Bilirubin Cancelled AST ALT Alkaline Phosphatase Lactate Dehydrogenase Cancelled Total Protein Albumin Tumor Marker AFP 1.6 [place] Screen MTS Gel Crossmatch See Detail 11/18/18 11/18/18 06:53 06:53 WBC 13.3 H RBC 3.56 L Hgb 9.3 L D Hct 29.6 L MCV 83.2 MCH 26.3 L MCHC 31.6 L RDW 28.0 H D Plt Count 17 L* MPV 11.0 Prelim Diff (Auto) Slide review pending Neut % (Auto) 75.4 H Lymph % (Auto) 14.5 [place] % (Auto) 8.5 H Eos % (Auto) 0.9 Baso % (Auto) 0.7 Neut # (Auto) 10.1 H Lymph # (Auto) 1.9 [place] # (Auto) 1.1 H Eos # (Auto) 0.1 Baso # (Auto) 0.1 WBC Differential . Diff Scan Auto diff confirmed Differential Comment . Toxic Granulation 1+ H Platelet Estimate Rare L Platelet Morphology Normal Polychromasia 2.0 H Sodium 127 L Potassium 3.7 Chloride 98 Carbon Dioxide 17.4 L Anion Gap 12 BUN 33 H Creatinine 1.30 Estimated GFR 61 L Random Glucose 84 Calcium 7.5 L Calcium Adj for Albumin Total Bilirubin Direct Bilirubin Indirect Bilirubin AST ALT Alkaline Phosphatase Lactate Dehydrogenase Total Protein Albumin Tumor Marker AFP [place] Screen MTS Gel Crossmatch Culture Results: Microbiology 11/15/18 18:15 Aerobic Blood Culture - Preliminary Blood - Peripheral gram positive cocci Anaerobic Blood Culture - Preliminary No growth in 2 days 11/15/18 18:30 Aerobic Blood Culture - Preliminary Blood - Peripheral No growth in 2 days Anaerobic Blood Culture - Preliminary No growth in 2 days Imaging Studies: Impressions Chest X-Ray 11/17/18 00:00 CONCLUSION: No acute cardiopulmonary Medications: Active Medications Generic Name Dose Route Start Last Admin Trade Name Freq PRN Reason Stop Dose Admin Hydrocodone Bitart/Acetaminophen 1 tab 11/17/18 11:23 11/18/18 08:35 [place] 7.5/325 PO 1 tab Q4H PRN Administration PAIN SCALE 6 TO 10 Benzonatate 100 mg 11/16/18 21:53 11/18/18 08:36 Tessalon Perles PO 100 mg Q8H PRN Administration COUGH Furosemide 40 mg 11/16/18 09:00 11/18/18 08:35 Lasix PO 40 mg DAILY JAZLYN Administration Albumin Human 50 mls @ 60 mls/hr 11/15/18 23:00 11/17/18 23:40 Flexbumin 25% Inj IV.SIG 11/18/18 23:59 Infused Q12H JAZLYN Infusion Ceftriaxone Sodium 1,000 mg/ 100 mls @ 200 mls/hr 11/16/18 09:00 11/18/18 08: 30 Sodium Chloride IV.SIG 200 mls/hr Q12H JAZLYN Administration Morphine Sulfate 2 mg 11/17/18 11:23 11/17/18 22:47 Morphine Inj IV.PUSH 2 mg Q3H PRN Administration BREAKTHROUGH PAIN Sodium Chloride 2 ml 11/15/18 21:00 11/18/18 08:39 Ns Flush IV.FLUSH 2 ml BID JAZLYN Administration Objective Remarks: GENERAL: Well-nourished, well-developed male patient, in no acute distress. SKIN: Warm and dry. HEAD: Normocephalic. EYES: No scleral icterus. No injection or drainage. MOUTH: [place] moist mucous membranes, no petechiae or lesions noted. NECK: Supple, trachea midline. CARDIOVASCULAR: Regular rate and rhythm without murmurs. RESPIRATORY: Breath sounds clear, equal bilaterally. No accessory muscle use. GASTROINTESTINAL: Abdomen soft, non-tender, nondistended. EXTREMITIES: No cyanosis. 3+ pitting edema to bilateral lower extremities. MUSCULOSKELETAL: Adequate muscle tone. NEUROLOGICAL: No obvious focal deficit. Awake, alert, and oriented x3. PSYCHIATRIC: Appropriate mood and affect; insight and judgment normal. Assessment/Plan - Plan Mr. Gallagher is a 43-year-old male patient, who presented to the hospital with chest pain. He reports a recent move to [place] from [place]. He has a history of IV drug use, last used 3 months ago. He denies EtOH abuse. Hematology was consulted for severe anemia and thrombocytopenia. Plan: 1. Anemia with severe thrombocytopenia, pending bone marrow biopsy today. 2. Endocarditis, echocardiogram shows aortic valve vegetation, sepsis could certainly be a differential along with liver disease for the anemia and severe thrombocytopenia. Endocarditis management per attending. 3. Continue to monitor closely for bleeding. Hemoglobin 9.3 g/dL, status post 2 units PRBCs yesterday. Platelets 17,000. Stool Hemoccult ordered, pending results. 4. Await bone marrow biopsy results. - Attending Statement The exam, history, and the medical decision-making described in the above note were completed with the assistance of the mid-level provider. I reviewed and agree with the findings presented. I attest that I had a [id number] encounter with the patient on the same day, and personally performed and documented my assessment and findings in the medical record. Patient is complaining of some discomfort the bone marrow biopsy site Patient's dad and stepmom were present at the bedside They have asked questions and these were answered to their satisfaction. Patient had received blood transfusion yesterday and the hemoglobin has improved. Patient remains thrombocytopenic which could be due to sepsis versus underlying bone marrow pathology Patient has vegetations seen on echo. Medical team is following up on that. Bone marrow biopsy was canceled yesterday as patient ate lunch and not because of low blood count. It was rescheduled for today. Continue to monitor CBC We will follow with you
[2018-11-18] MEDS ORDERED: Sodium Chlor 0.9% Inj 250 ML IV.SIG SCH (10:00)
[2018-11-18] MEDS: Albumin Human 25% Inj 50 ML IV.SIG SCH (10:07)
[2018-11-18] MEDS: Vancomycin Inj 750 MG in Sodium Chlor 0.9% Inj 250 ML IV.SIG SCH (11:00)
[2018-11-18] MEDS ORDERED: Naloxone Inj 0.4 MG/ML Vial IV.PUSH PRN (12:42)
[2018-11-18] MEDS ORDERED: fentaNYL Citrate Inj 250 MCG/5 ML Ampul ONE (13:09)
[2018-11-18] MEDS ORDERED: Gelatin 12 MM/7 MM Topical Foam ONE (13:40)
[2018-11-18] MEDS ORDERED: Iohexol 350 MG/ML 50 ML Vial (for Rad Diag) IVCONTRAST ONE (14:25)
[2018-11-18 14:44] LABS: Iron Stain Bone Marrow Done
--- NOTE | 2018-11-18 15:56 | IR ---
INDICATIONS: Patient presents with no IV access in need of a 3/4 Dilator. CLINICAL DATA: This is the patient's initial encounter. Patient reports that signs and symptoms have been present for 1 day and indicates a pain score of 6/10. Location: Abdomen, Laterality: Bilateral MEDICAL/SURGICAL HISTORY: Aortic Stenosis. None. COMPARISON: . FLUORO TIME (min): IMAGE SERIES: 1 RADIATION DOSE: None ACCESS SITE: basilic vein SEDATION TIME (min): CONTRAST (cc): MEDICATION(S): DEVICE(S): Right vein 3/4 Dilator Basilic . . PROCEDURE : 1. Ultrasound guided venous access. The risks, benefits and alternatives to the procedure were explained and verbal and written consent w as obtained. The site was prepped in sterile fashion. Full sterile technique was used, including ca p, mask, sterile gloves and gown and a large sterile sheet. Hand hygiene and 2% chlorhexidine and/or betadine/alcohol prep was utilized per protocol for cutaneous antisepsis. Sterile gel and sterile p robe cover were utilized for ultrasound guidance. The skin and subcutaneous tissues were infiltrate d with local anesthetic solution. With ultrasound guidance the prescribed vein was punctured for venous access. A 4 [place] dilator was placed and was flushed and locked with heparin. The patient tolerated procedure well and there were n o complications. CONCLUSION: 1. Uncomplicated ultrasound guided venous access. Electronically signed by: Ramirez Cantu MD Board Certified Radiologist 11/18/2018 3:55 PM EST
--- NOTE | 2018-11-18 15:56 | IR ---
EXAM DATE: 11/18/2018 2:53 PM EST AGE/SEX: 43 years / Male INDICATIONS: Patient presents with history of Thrombocytopenia in need of a Bone Marrow Biopsy. CLINICAL DATA: This is the patient's initial encounter. Patient reports that signs and symptoms have been present for 2 weeks and indicates a pain score of 6/10. MEDICAL/SURGICAL HISTORY: Aortic Stenosis. None. COMPARISON: . CONTRAST (cc): 10 Omnipaque (iohexol) 350 FLUORO TIME (min): 1.3 IMAGE SERIES: 1 RADIATION DOSE: 74.5 mGY CAK SEDATION TIME (min): 20 BIOPSY SITE: Right Iliac crest MEDICATION(S): 2.5 mg midazolam (Versed) IV 125 mcg fentanyl (Sublimaze) IV DEVICE(S): . Gelfoam 12-7 Eight . . PROCEDURE: 1. Fluoroscopically guided needle biopsy, Right Iliac crest. 2. Bone marrow aspirate, Right Iliac crest. 3. Conscious sedation with continuous EKG and Oximetry monitoring. The risks, benefits and alternatives to the procedure were explained and verbal and written consent w as obtained. The site was prepped in sterile fashion. Full sterile technique was used, including cap, mask, sterile gloves and gown and a large sterile sheet. Hand hygiene and 2% chlorhexidine and/or be tadine/alcohol prep was utilized per protocol for cutaneous antisepsis. The skin and subcutaneous tis sues were infiltrated with local anesthetic solution. With fluoroscopic guidance, the Right Iliac crest was localized . Bone drill was fluoroscopically trenton ded down to the Right Iliac crest and a single core obtained and placed in formalin. Bone marrow aspi rate was then obtained and placed in the appropriate vials. Conscious sedation was performed with the prescribed dosages and duration as above in the presence of an independent trained radiology nurse to assist in the monitoring of the patient. EKG and oximetry remained stable throughout the procedure. CONCLUSION: 1. Uncomplicated core needle biopsy of the Right Iliac crest. 2. Bone marrow aspirate, Right Iliac crest. Electronically signed by: Ramirez Cantu MD Board Certified Radiologist 11/18/2018 3:55 PM EST
[2018-11-18 22:10] LABS: Hemoglobin A1c 4.6 % (4.3-6.0)
[2018-11-19] MEDS: Albumin Human 25% Inj 50 ML IV.SIG SCH (00:10)
[2018-11-19] MEDS: Vancomycin Inj 750 MG in Sodium Chlor 0.9% Inj 250 ML IV.SIG SCH ×3 (00:10→23:31)
[2018-11-19 06:12] LABS: Baso # (Auto) 0.1 th/mm3 (0.0-0.2); Baso % (Auto) 0.8 % (0.0-2.0); Eos # (Auto) 0.1 th/mm3 (0.0-0.4); Eos % (Auto) 0.9 % (0.0-4.0); Hematocrit 25.8 % (39.0-51.0); Hemoglobin 8.4 gm/dL (13.0-17.0); Lymph # (Auto) 1.6 th/mm3 (1.0-4.8); Lymph % (Auto) 14.2 % (9.0-44.0); Mean Corpuscular HGB Conc 32.6 % (32.0-36.0); Mean Corpuscular Hemoglobin 26.7 pg (27.0-34.0); Mean Platelet Volume 8.7 fL (7.0-11.0); Mono % (Auto) 8.5 % (0.0-8.0); Neut # (Auto) 8.5 th/mm3 (1.8-7.7); Neut % (Auto) 75.6 % (16.0-70.0); Platelet Count 25 th/mm3 (150-450); Red Blood Count 3.14 mil/mm3 (4.50-5.90); Red Cell Distribution Width 27.4 % (11.6-17.2); White Blood Count 11.3 th/mm3 (4.0-11.0)
[2018-11-19 06:41] LABS: Albumin 2.6 g/dL (3.4-5.0); Calcium 7.3 mg/dL (8.5-10.1); Potassium 3.9 meq/L (3.5-5.1); Total Protein 6.8 g/dL (6.4-8.2)
[2018-11-19 07:27] LABS: Ovalocytes 1+
--- NOTE | 2018-11-19 08:48 | P.PNFP ---
Subjective Interval history: Patient seen and examined. Patient complaining of continued, but not worsening abdominal pain in lower quadrants. Per patient, the bone marrow biopsy went well yesterday. He states that he was in the PACU for an extended time as he "was not waking up after the anesthesia ". Denies pain or excess bleeding at site. Did bleeding earlier in the night right after coming back to the floor. No other problems since then. He states that he was able to get up and walk around the floor last night with his father. His ankles and feet to be swollen. He notes that his cough is improving. Denies headache, nausea, vomiting, diarrhea or constipation. Denies bleeding bruising. Discussed possibility of need for skin continued IV antibiotic treatment for endocarditis, including option for PICC line placement for continued antibiotic infusion. All questions answered. <Tonja Kelley - 11/19/18 18:25> Results - Labs Result diagrams: 11/19/18 05:46 11/19/18 05:44 <Huy Pandey - 11/19/18 20:12> Abnormal lab results 11/19/18 11/19/18 Range/Units 05:44 05:46 WBC 11.3 H (4.0-11.0) th/mm3 RBC 3.14 L (4.50-5.90) mil/mm3 Hgb 8.4 L (13.0-17.0) gm/dL Hct 25.8 L (39.0-51.0) % MCH 26.7 L (27.0-34.0) pg RDW 27.4 H (11.6-17.2) % Plt Count 25 L D (150-450) th/mm3 Neut % (Auto) 75.6 H (16.0-70.0) % [place] % (Auto) 8.5 H (0.0-8.0) % Neut # (Auto) 8.5 H (1.8-7.7) th/mm3 [place] # (Auto) 1.0 H (0.0-0.9) th/mm3 Ovalocytes 1+ H (None) Keratocytes Occ H (None) Sodium 128 L (136-145) meq/L Carbon Dioxide 18.0 L (21.0-32.0) meq/L BUN 34 H (7-18) mg/dL Creatinine 1.43 H (0.60-1.30) mg/dL Estimated GFR 54 L (>89) mL/min Calcium 7.3 L* (8.5-10.1) mg/dL Calcium Adj for Albumin 8.4 L (8.5-10.1) mg/dL Total Bilirubin 1.7 H (0.2-1.0) mg/dL Alkaline Phosphatase 122 H (45-117) U/L Albumin 2.6 L (3.4-5.0) g/dL Short CBC 11/19/18 Range/Units 05:46 WBC 11.3 H (4.0-11.0) th/mm3 Hgb 8.4 L (13.0-17.0) gm/dL Hct 25.8 L (39.0-51.0) % Plt Count 25 L D (150-450) th/mm3 BMP 11/19/18 05:44 Sodium 128 L Potassium 3.9 Chloride 98 Carbon Dioxide 18.0 L BUN 34 H Creatinine 1.43 H Calcium 7.3 L* Liver Function 11/19/18 Range/Units 05:44 Total Bilirubin 1.7 H (0.2-1.0) mg/dL AST 33 (15-37) U/L ALT 14 (12-78) U/L Alkaline Phosphatase 122 H (45-117) U/L Albumin 2.6 L (3.4-5.0) g/dL <Huy Pandey - 11/19/18 20:12> Abnormal lab results 11/18/18 11/19/18 11/19/18 Range/Units 06:53 05:44 05:46 WBC 11.3 H (4.0-11.0) th/mm3 RBC 3.14 L (4.50-5.90) mil/mm3 Hgb 8.4 L (13.0-17.0) gm/dL Hct 25.8 L (39.0-51.0) % MCH 26.7 L (27.0-34.0) pg RDW 27.4 H (11.6-17.2) % Plt Count 25 L D (150-450) th/mm3 Neut % (Auto) 75.6 H (16.0-70.0) % [place] % (Auto) 8.5 H (0.0-8.0) % Neut # (Auto) 8.5 H (1.8-7.7) th/mm3 [place] # (Auto) 1.0 H (0.0-0.9) th/mm3 Toxic Granulation 1+ H (None) Platelet Estimate Rare L (Normal) Polychromasia 2.0 H (0.0-1.9) % Ovalocytes 1+ H (None) Keratocytes Occ H (None) Sodium 128 L (136-145) meq/L Carbon Dioxide 18.0 L (21.0-32.0) meq/L BUN 34 H (7-18) mg/dL Creatinine 1.43 H (0.60-1.30) mg/dL Estimated GFR 54 L (>89) mL/min Calcium 7.3 L* (8.5-10.1) mg/dL Calcium Adj for Albumin 8.4 L (8.5-10.1) mg/dL Total Bilirubin 1.7 H (0.2-1.0) mg/dL Alkaline Phosphatase 122 H (45-117) U/L Albumin 2.6 L (3.4-5.0) g/dL Short CBC 11/19/18 Range/Units 05:46 WBC 11.3 H (4.0-11.0) th/mm3 Hgb 8.4 L (13.0-17.0) gm/dL Hct 25.8 L (39.0-51.0) % Plt Count 25 L D (150-450) th/mm3 BMP 11/19/18 05:44 Sodium 128 L Potassium 3.9 Chloride 98 Carbon Dioxide 18.0 L BUN 34 H Creatinine 1.43 H Calcium 7.3 L* Liver Function 11/19/18 Range/Units 05:44 Total Bilirubin 1.7 H (0.2-1.0) mg/dL AST 33 (15-37) U/L ALT 14 (12-78) U/L Alkaline Phosphatase 122 H (45-117) U/L Albumin 2.6 L (3.4-5.0) g/dL <Tonja Kelley - 11/19/18 08:48> - Imaging Impressions Bone Biopsy 11/18/18 00:00 CONCLUSION: 1. Uncomplicated core needle biopsy of the Right Iliac crest. 2. Bone marrow aspirate, Right Iliac crest. Guidance Ultrasound 11/18/18 00:00 CONCLUSION: 1. Uncomplicated ultrasound guided venous access. <Tonja Kelley B - 11/19/18 08:48> Physical Exam Vital signs: Vital Signs 11/19/18 00:00 11/19/18 08:00 11/19/18 12:00 Temperature 97.8 F 97.6 F 98.0 F Pulse Rate 108 H 90 90 Respiratory Rate 20 18 18 Blood Pressure 121/77 104/60 100/72 Pulse Oximetry 100 100 99 11/19/18 16:00 Temperature 97.9 F Pulse Rate 101 H Respiratory Rate 19 Blood Pressure 105/65 Pulse Oximetry 97 Intake & Output 11/19/18 11/19/18 11/20/18 06:59 18:59 06:59 Intake Total 687.5 / 687.5 100 / 100 257.5 / 257.5 Balance 687.5 / 687.5 100 / 100 257.5 / 257.5 Weight 68.9 kg Intake: IV 407.5 / 407.5 100 / 100 257.5 / 257.5 Flexbumin 25% Inj 50 ML @ 60 50 / 50 mls/hr IV.SIG Q12H JAZLYN Rx#: [id number] NS Inj 250 ML @ 15 mls/hr IV. 0 / 0 SIG ONCE JAZLYN Rx#:[id number] Vancomycin Inj 750 MG In NS Inj 257.5 / 257.5 257.5 / 257.5 250 ML @ 250 mls/hr IV.SIG Q12H JAZLYN Rx#:[id number] Rocephin Inj 1,000 MG In NS Inj 100 / 100 100 / 100 100 ML @ 200 mls/hr IV.SIG Q12H JAZLYN Rx#:[id number] Oral 280 / 280 Other: # Voids 3 Date of Last Bowel Movement 11/17/18 # Bowel Movements 0 <Huy Pandey - 11/19/18 20:12> Vital Signs 11/18/18 10:43 11/18/18 12:00 11/18/18 13:23 Temperature 97.5 F L 97.5 F L 98.6 F Pulse Rate 93 H 93 H 98 H Respiratory Rate 16 16 20 Blood Pressure 100/68 100/68 100/65 Pulse Oximetry 97 97 11/18/18 14:25 11/18/18 14:40 11/18/18 15:10 Temperature 98.6 F Pulse Rate 107 H 101 H 100 H Respiratory Rate 18 20 18 Blood Pressure 121/85 120/74 120/76 Pulse Oximetry 97 96 96 11/18/18 15:40 11/18/18 16:00 11/18/18 16:10 Temperature 98.0 F Pulse Rate 103 H 100 H 101 H Respiratory Rate 18 18 18 Blood Pressure 122/79 102/63 94/67 L Pulse Oximetry 94 L 96 96 11/18/18 20:00 11/19/18 00:00 Temperature 97.2 F L 97.8 F Pulse Rate 101 H 108 H Respiratory Rate 19 20 Blood Pressure 109/66 121/77 Pulse Oximetry 100 100 Intake & Output 11/18/18 11/19/18 11/19/18 18:59 06:59 18:59 Intake Total 1260 / 1260 687.5 / 687.5 Output Total 300 / 300 Balance 960 / 960 687.5 / 687.5 Weight 68.9 kg Intake: IV 300 / 300 407.5 / 407.5 Flexbumin 25% Inj 50 ML @ 60 50 / 50 50 / 50 mls/hr IV.SIG Q12H JAZLYN Rx#: [id number] NS Inj 250 ML @ 15 mls/hr IV. 0 / 0 SIG ONCE JAZLYN Rx#:[id number] Vancomycin Inj 750 MG In NS Inj 257.5 / 257.5 250 ML @ 250 mls/hr IV.SIG Q12H JAZLYN Rx#:[id number] Rocephin Inj 1,000 MG In NS Inj 100 / 100 100 / 100 100 ML @ 200 mls/hr IV.SIG Q12H JAZLYN Rx#:[id number] Oral 960 / 960 280 / 280 Intake (Blood Product) Amt 0 / 0 Prepooled Plts Leukoreduced 5d 0 / 0 Unit [id number] Prepooled Plts Leukoreduced 5d 0 / 0 Unit [id number] Output: Urine 300 / 300 Other: # Voids 1 3 # Bowel Movements 0 <Tonja Kelley - 11/19/18 08:48> Narrative: GENERAL: 43-year-old, well nourished, well developed male sitting up in bed. In no acute distress. SKIN: Warm and dry. Pale, mildly yellow. Small, clean, dry puncture site without active bleeding status post bone marrow biopsy. HEAD: Atraumatic. Normocephalic. EYES: EMOI. PERRLA. No injection or drainage. ENT: No nasal bleeding or discharge. Mucous membranes pale pink and moist. Airway patent. CARDIOVASCULAR: Regular rate and rhythm. Systolic ejection at sternal border murmur. RESPIRATORY: No accessory muscle use. Clear to auscultation with equal breath sounds. No crackles, wheeze, rales or rhonchi. GASTROINTESTINAL: Bowel sounds in all 4 quadrants. Abdomen mild distended, mildly tender to palpation in lower quadrants. MUSCULOSKELETAL: Extremities without clubbing, cyanosis. 1+ edema of bilateral lower extremities up to mid ward. No obvious deformities. No calf tenderness. NEUROLOGICAL: Awake and alert. No obvious cranial nerve deficits. Motor grossly within normal limits. PSYCHIATRIC: Appropriate mood and affect; insight and judgment normal. <Katarzynaishmael Tiesha TenorioTonja Anshu - 11/19/18 18:25> Assessment and Plan - Assessment (1) Thrombocytopenia Code(s): D69.6 - Thrombocytopenia, unspecified Status: Acute (2) Anemia Code(s): D64.9 - Anemia, unspecified Status: Acute (3) Ascites Code(s): R18.8 - Other ascites Status: Acute (4) Abdominal pain Code(s): R10.9 - Unspecified abdominal pain Status: Acute (5) Nausea and vomiting Code(s): R11.2 - Nausea with vomiting, unspecified Status: Acute (6) Cough Code(s): R05 - Cough Status: Acute (7) Hyponatremia Code(s): E87.1 - Hypo-osmolality and hyponatremia Status: Acute (8) Splenic infarct Code(s): D73.5 - Infarction of spleen Status: Acute (9) Aortic stenosis Code(s): I35.0 - Nonrheumatic aortic (valve) stenosis Status: Chronic (10) Hx of intravenous drug use, in remission Code(s): Z87.898 - Personal history of other specified conditions Status: Chronic (11) Nutrition, metabolism, and development symptoms Code(s): R63.8 - Other symptoms and signs concerning food and fluid intake Status: Acute (12) DVT prophylaxis Status: Acute <Huy Pandey - 11/19/18 20:12> (1) Thrombocytopenia Code(s): D69.6 - Thrombocytopenia, unspecified Status: Acute (2) Anemia Code(s): D64.9 - Anemia, unspecified Status: Acute (3) Ascites Code(s): R18.8 - Other ascites Status: Acute (4) Abdominal pain Code(s): R10.9 - Unspecified abdominal pain Status: Acute (5) Nausea and vomiting Code(s): R11.2 - Nausea with vomiting, unspecified Status: Acute (6) Cough Code(s): R05 - Cough Status: Acute (7) Hyponatremia Code(s): E87.1 - Hypo-osmolality and hyponatremia Status: Acute (8) Splenic infarct Code(s): D73.5 - Infarction of spleen Status: Acute (9) Aortic stenosis Code(s): I35.0 - Nonrheumatic aortic (valve) stenosis Status: Chronic (10) Hx of intravenous drug use, in remission Code(s): Z87.898 - Personal history of other specified conditions Status: Chronic (11) Nutrition, metabolism, and development symptoms Code(s): R63.8 - Other symptoms and signs concerning food and fluid intake Status: Acute (12) DVT prophylaxis Status: Acute <Tonja Kelley - 11/19/18 18:09> - Assessment and Plan Thrombocytopenia HCV + Cirrhosis + Sepsis? d/w Dr Medina, will eventually get BM biopsy, no shistocytes to suggest TTP -hold anticoagulants -Platelet count increased from 17,000 to 25,000 status post platelet transfusion (2 units) Hematology following. DDx includes sepsis, hemolysis, hepatitis, primary bone disorder. -Bone marrow biopsy to be performed yesterday. 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 Large mobile irregular mass approximately 1-2 cm encompassing most of aortic leaflets, consistent with vegetation on the aortic valve. -1 of 2 blood cultures positive for gram-positive cocci -Vancomycin IV started on (11/18/18 - ), renally dosed per pharmacy -ID consult for assistance with set up of outpatient IV treatment for endocarditis Abdominal pain SBP v Splenic infarcts -Treating SBP empirically with ceftriaxone IV 1 g daily -Avoid Tylenol and NSAIDs with suspected cirrhosis and solitary kidney -Pain scale with oxycodone -Abdominal ultrasound showed small amount of ascites Ascites -With severe thrombocytopenia, will hold off on paracentesis. Only small amount of fluid visualized on ultrasound. Paracentesis would not likely be therapeutic. -Continue empiric treatment for SBP -Continue albumin and Lasix -We will add spironolactone when hyponatremia resolves -May consider diagnostic paracentesis when platelets level rise Cough -Monica Colon -Chest x-ray on 11/17 showed no acute cardiopulmonary process -Currently on Rocephin for empiric management of SBP Anemia, improved - status post 2 units packed red blood cells on 11/17 Liver failure does appear to have dysfunction has possibly NAFLD on imaging -autoimmune liver panel ordered Splenic infarcts hypercoaguable, possibly from liver dysfunction -Right upper quadrant ultrasound showed mildly fatty liver, thickened gallbladder wall possibly related to the ascites, negative sonographic Flanagan sign, no obvious defects of the aorta, IVC or portal vasculature -Echocardiogram showed aortic vegetation -conservative management now hypotension expect BPs to run low in ascitic patient -Albumin infusion every 12hr hypo Na status post NS infusion, improved some suspect more cirrhotic picture -will see if it improves with albumin and Lasix solitary left kidney -Avoid nephrotoxic meds -Renally dose all antibiotics per pharmacy conditions Itching, resolved Patient complaining of itchy skin following morphine administration last night -IV morphine discontinued -Benadryl as needed for itching + HCV antibody last exposure 3 months ago -HCV Quant and Genotype pending FEN Fluids: IVF held. Tolerating p.o. fluids well. Electrodes: Hyponatremia improving Nutrition: Regular diet DVT prophylaxis SCDs and compression hose dw Dr. Pandey and Dr. Nayak <Tonja Kelley - 11/19/18 18:25> - Attending Attestation The exam, history, and the medical decision-making described in the above note were completed with the assistance of the resident physician. I reviewed and agree with the findings presented. I attest that I had a [id number] encounter with the patient on the same day, and personally performed and documented my assessment and findings in the medical record. still very edematous but pain controlled with PO medications. ECHO showing large vegetations and severe triscupid regurg and pulm htn. will give one more dose IV lasix today and continue PO while monitoring creatinine as small rise today. sodium stable, expect to stay low given cirrhosis. ID consulted today, added gentamycin for endocarditis BM biopsy pending, HCV VL and genotype pending Hematology following CBC <Huy Pandey - 11/19/18 20:12>
[2018-11-19] MEDS: Furosemide 40 MG Tablet PO SCH ×3 (09:30→19:22)
--- NOTE | 2018-11-19 11:14 | P.PNONC ---
Subjective Interval history: Afebrile Patient denies any bleeding Feeling about the same No soreness from bone marrow biopsy yesterday Objective Vital Signs/Intake & Output: Vital Signs 11/18/18 12:00 11/18/18 13:23 11/18/18 14:25 Temperature 97.5 F L 98.6 F 98.6 F Pulse Rate 93 H 98 H 107 H Respiratory Rate 16 20 18 Blood Pressure 100/68 100/65 121/85 Pulse Oximetry 97 97 11/18/18 14:40 11/18/18 15:10 11/18/18 15:40 Temperature Pulse Rate 101 H 100 H 103 H Respiratory Rate 20 18 18 Blood Pressure 120/74 120/76 122/79 Pulse Oximetry 96 96 94 L 11/18/18 16:00 11/18/18 16:10 11/18/18 20:00 Temperature 98.0 F 97.2 F L Pulse Rate 100 H 101 H 101 H Respiratory Rate 18 18 19 Blood Pressure 102/63 94/67 L 109/66 Pulse Oximetry 96 96 100 11/19/18 00:00 11/19/18 08:00 Temperature 97.8 F 97.6 F Pulse Rate 108 H 90 Respiratory Rate 20 17 Blood Pressure 121/77 104/60 Pulse Oximetry 100 100 Intake & Output 11/18/18 11/19/18 11/19/18 18:59 06:59 18:59 Intake Total 1260 / 1260 687.5 / 687.5 Output Total 300 / 300 Balance 960 / 960 687.5 / 687.5 Weight 151 lb 14.376 oz Intake: IV 300 / 300 407.5 / 407.5 Flexbumin 25% Inj 50 ML @ 60 50 / 50 50 / 50 mls/hr IV.SIG Q12H JAZLYN Rx#: [id number] NS Inj 250 ML @ 15 mls/hr IV. 0 / 0 SIG ONCE JAZLYN Rx#:[id number] Vancomycin Inj 750 MG In NS Inj 257.5 / 257.5 250 ML @ 250 mls/hr IV.SIG Q12H JAZLYN Rx#:[id number] Rocephin Inj 1,000 MG In NS Inj 100 / 100 100 / 100 100 ML @ 200 mls/hr IV.SIG Q12H JAZLYN Rx#:[id number] Oral 960 / 960 280 / 280 Intake (Blood Product) Amt 0 / 0 Prepooled Plts Leukoreduced 5d 0 / 0 Unit [id number] Prepooled Plts Leukoreduced 5d 0 / 0 Unit [id number] Output: Urine 300 / 300 Other: # Voids 1 3 # Bowel Movements 0 Result Diagrams: 11/19/18 05:46 11/19/18 05:44 Laboratory Results: Laboratory Results - last 24 hr 11/17/18 11/18/18 11/19/18 07:46 09:29 05:44 WBC RBC Hgb Hct MCV MCH MCHC RDW Plt Count MPV Prelim Diff (Auto) Neut % (Auto) Lymph % (Auto) [place] % (Auto) Eos % (Auto) Baso % (Auto) Neut # (Auto) Lymph # (Auto) [place] # (Auto) Eos # (Auto) Baso # (Auto) WBC Differential Diff Scan Differential Comment Ovalocytes Keratocytes Sodium 128 L Potassium 3.9 Chloride 98 Carbon Dioxide 18.0 L Anion Gap 12 BUN 34 H Creatinine 1.43 H Estimated GFR 54 L Random Glucose 89 Hemoglobin A1c 4.6 Calcium 7.3 L* Calcium Adj for Albumin 8.4 L Total Bilirubin 1.7 H AST 33 ALT 14 Alkaline Phosphatase 122 H Total Protein 6.8 Albumin 2.6 L Bld Prod Order Comment 11/19/18 05:46 WBC 11.3 H RBC 3.14 L Hgb 8.4 L Hct 25.8 L MCV 82.0 MCH 26.7 L MCHC 32.6 RDW 27.4 H Plt Count 25 L D MPV 8.7 Prelim Diff (Auto) Slide review pending Neut % (Auto) 75.6 H Lymph % (Auto) 14.2 [place] % (Auto) 8.5 H Eos % (Auto) 0.9 Baso % (Auto) 0.8 Neut # (Auto) 8.5 H Lymph # (Auto) 1.6 [place] # (Auto) 1.0 H Eos # (Auto) 0.1 Baso # (Auto) 0.1 WBC Differential . Diff Scan Auto diff confirmed Differential Comment . Ovalocytes 1+ H Keratocytes Occ H Sodium Potassium Chloride Carbon Dioxide Anion Gap BUN Creatinine Estimated GFR Random Glucose Hemoglobin A1c Calcium Calcium Adj for Albumin Total Bilirubin AST ALT Alkaline Phosphatase Total Protein Albumin Bld Prod Order Comment Culture Results: Microbiology 11/18/18 20:05 Aerobic Blood Culture - Preliminary Blood - Peripheral No growth in 1 day Anaerobic Blood Culture - Preliminary No growth in 1 day 11/18/18 20:00 Aerobic Blood Culture - Preliminary Blood - Peripheral No growth in 1 day Anaerobic Blood Culture - Preliminary No growth in 1 day 11/15/18 18:15 Aerobic Blood Culture - Preliminary Blood - Peripheral gram positive cocci Anaerobic Blood Culture - Preliminary No growth in 4 days 11/15/18 18:30 Aerobic Blood Culture - Preliminary Blood - Peripheral No growth in 4 days Anaerobic Blood Culture - Preliminary No growth in 4 days Imaging Studies: Impressions Bone Biopsy 11/18/18 00:00 CONCLUSION: 1. Uncomplicated core needle biopsy of the Right Iliac crest. 2. Bone marrow aspirate, Right Iliac crest. Guidance Ultrasound 11/18/18 00:00 CONCLUSION: 1. Uncomplicated ultrasound guided venous access. Medications: Active Medications Generic Name Dose Route Start Last Admin Trade Name Freq PRN Reason Stop Dose Admin Benzonatate 100 mg 11/16/18 21:53 11/18/18 08:36 Tessalon Perles PO 100 mg Q8H PRN Administration COUGH Diphenhydramine HCl 25 mg 11/18/18 08:49 11/18/18 10:06 Benadryl PO 25 mg Q6H PRN Administration ITCHING Furosemide 40 mg 11/18/18 18:00 11/18/18 17:44 Lasix PO 40 mg BID@0900,1800 JAZLYN Administration Ceftriaxone Sodium 1,000 mg/ 100 mls @ 200 mls/hr 11/16/18 09:00 11/19/18 00: 17 Sodium Chloride IV.SIG Infused Q12H JAZLYN Infusion Vancomycin HCl 750 mg/ Sodium 257.5 mls @ 250 mls/hr 11/18/18 11:00 11/19/18 01:55 Chloride IV.SIG Infused Q12H JAZLYN Infusion Morphine Sulfate 2 mg 11/17/18 11:23 11/17/18 22:47 Morphine Inj IV.PUSH 2 mg Q3H PRN Administration BREAKTHROUGH PAIN Naloxone HCl 0.4 mg 11/15/18 15:30 11/18/18 14:44 Narcan Inj IV.PUSH 0.4 mg UNSCH PRN Administration SEE LABEL COMMENTS Oxycodone HCl 10 mg 11/18/18 12:42 11/18/18 20:27 Roxicodone PO 10 mg Q4H PRN Administration PAIN SCALE 6 TO 10 Sodium Chloride 2 ml 11/15/18 21:00 11/19/18 00:16 Ns Flush IV.FLUSH 2 ml BID JAZLYN Administration Objective Remarks: GENERAL: Middle-aged male sitting up in bed watching TV in no acute distress SKIN: Warm and dry. Puncture carleen from bone marrow biopsy yesterday with no oozing noted HEAD: Normocephalic. EYES: No scleral icterus. No injection or drainage. MOUTH: [place] moist mucous membranes, no petechiae or lesions noted. NECK: Supple, trachea midline. CARDIOVASCULAR: Regular rate and rhythm without murmurs. RESPIRATORY: Breath sounds clear, equal bilaterally. No accessory muscle use. GASTROINTESTINAL: Abdomen soft, non-tender, nondistended. EXTREMITIES: No cyanosis. SCDs to bilateral lower extremities MUSCULOSKELETAL: Adequate muscle tone. NEUROLOGICAL: No obvious focal deficit. Awake, alert, and oriented x3. Assessment/Plan - Plan Mr. Gallagher is a 43-year-old male patient, who presented to the hospital with chest pain. He reports a recent move to [place] from [place]. He has a history of IV drug use, last used 3 months ago. He denies EtOH abuse. Hematology was consulted for severe anemia and thrombocytopenia. Plan: 1. Patient is status post bone marrow biopsy yesterday. Results currently pending. 2. He is currently on vancomycin and ceftriaxone for the endocarditis seen on echocardiogram. Blood cultures from 11/15/18 show gram-positive cocci. He has been afebrile. Management per attending. 3. Patient received 2 units of packed red blood cells on 11/17. Hemoglobin initially up to 9.3 and now this is down to 8.4. Platelet count increased from 17-25,000 overnight. It does not appear that he received a platelet transfusion. Anticipate that if the thrombocytopenia is due to DIC the platelet count will improve as infection clears. We will get repeat coags in a.m. Continue to monitor for bleeding. - Attending Statement The exam, history, and the medical decision-making described in the above note were completed with the assistance of the mid-level provider. I reviewed and agree with the findings presented. I attest that I had a [id number] encounter with the patient on the same day, and personally performed and documented my assessment and findings in the medical record. Patient states that he is feeling much better now. Denies any pain at the bone marrow biopsy site He is on the antibiotic for endocarditis Hepatitis C viral load and genotype are both pending Bone marrow biopsy result is still pending Continue to monitor CBC We will follow
--- NOTE | 2018-11-19 16:33 | P.CONID ---
History of Present Illness Service: ID Consult date: 11/19/18 Requesting Physician: Tonja Tenorio Reason for Consult: endocarditis Primary Care Provider: No Primary Care Physician Chief Complaint: Abdominal pain, nausea and vomiting. History of Present Illness: 43 yo male using IV heroin about 3 mos ago presented with abdominal pain On presentation with critically low plts, but no leukocystosis or fever + ARF CT abd/pel with splenic infarcts 2 D ehco showed large vegetation: Large, mobile, irregular, approximately 1 x 2 cm mass encompassing most of the aortic leaflets though predominantly on the ventricular surfaces, consistent with vegetation on the aortic valve. Mild aortic regurgitation. Moderate aortic valve stenosis with a mean transvalvular aortic valve mean gradient of 32 mmhg. 09/24 blood clx positive for GPC in chains On Ceftriaxone + Vancomycin Pain improved Review of Systems All other systems reviewed negative except as stated in HPI PMFSH - History History Provided By: Patient, Family Member - Medical History Medical History: Medical History (Last Reviewed 11/19/18 @ 16:54 by Lucia Banks MD) Patient denies medical problems - Surgical History Surgical History: Surgical History (Last Reviewed 11/19/18 @ 16:54 by Lucia Banks MD) No history of previous surgery - Family History Family History: Family History (Last Updated 11/19/18 @ 16:54 by Lucia Banks MD) Other Family history non-contributory - Social History I have reviewed the patient's Social History: Yes - Tobacco History Second Hand Smoke Exposure: No Smoking Status: Never smoker Tobacco Type: Cigarettes - Alcohol History How Often Do You Have a Drink Containing Alcohol: Never - Substance Use History Substance History: Past History - 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 Last Used: 3 months Reason for Use: Get High - Travel History Recent Travel in the [place] Within the Last 8 Weeks: Yes Recent Travel Out of the Country Within the Last 8 Weeks: No - Immunization History Tetanus Immunization: Unsure Hx Influenza Vaccine This Season: No Medications and Allergies Active Medications: Active Medications Acetaminophen (Tylenol) 650 mg PO Q6HR PRN PRN Reason: PAIN SCALE 1 TO 2 Acetaminophen (Tylenol) 650 mg PO Q4H PRN PRN Reason: Temp > 100.4 Benzonatate (Tessalon Perles) 100 mg PO Q8H PRN PRN Reason: COUGH Last Admin: 11/18/18 08:36 Dose: 100 mg Diphenhydramine HCl (Benadryl) 25 mg PO Q6H PRN PRN Reason: ITCHING Last Admin: 11/18/18 10:06 Dose: 25 mg Furosemide (Lasix) 40 mg PO BID@0900,1800 [facility] Last Admin: 11/19/18 09:30 Dose: 40 mg Ceftriaxone Sodium 1,000 mg/ (Sodium Chloride) 100 mls @ 200 mls/hr IV.SIG Q12H [facility] Last Admin: 11/19/18 09:30 Dose: 100 mls/hr Vancomycin HCl 750 mg/ Sodium (Chloride) 257.5 mls @ 250 mls/hr IV.SIG Q12H [facility] Last Infusion: 11/19/18 01:55 Dose: Infused Miscellaneous Information ([facility] Ordered Lab Info) 1 each OTHER ONCE ONE Stop: 11/19/18 22:46 Morphine Sulfate (Morphine Inj) 2 mg IV.PUSH Q3H PRN PRN Reason: BREAKTHROUGH PAIN Last Admin: 11/17/18 22:47 Dose: 2 mg Naloxone HCl (Narcan Inj) 0.4 mg IV.PUSH UNSCH PRN PRN Reason: SEE LABEL COMMENTS Last Admin: 11/18/18 14:44 Dose: 0.4 mg Naloxone HCl (Narcan Inj) 0.4 mg IV.PUSH UNSCH PRN PRN Reason: SEE LABEL COMMENTS Naloxone HCl (Narcan Inj) 0.4 mg IV.PUSH UNSCH PRN PRN Reason: SEE LABEL COMMENTS Ondansetron HCl (Zofran Inj) 4 mg IV.PUSH Q6H PRN PRN Reason: NAUSEA OR VOMITING Oxycodone HCl (Roxicodone) 10 mg PO Q4H PRN PRN Reason: PAIN SCALE 6 TO 10 Last Admin: 11/18/18 20:27 Dose: 10 mg Oxycodone HCl (Roxicodone) 5 mg PO Q4H PRN PRN Reason: PAIN SCALE 3 TO 5 Pharmacy Profile Note (Vancomycin Consult Pharmacy) 1 each OTHER UNSCH PRN PRN Reason: Pharmacy to dose Senna/Docusate Sodium (Katherine-Colace) 1 tab PO BID PRN PRN Reason: CONSTIPATION Sodium Chloride (Ns Flush) 2 ml IV.FLUSH BID [facility] Last Admin: 11/19/18 13:50 Dose: 2 ml Sodium Chloride (Ns Flush) 2 ml IV.FLUSH PRN PRN PRN Reason: FLUSH AFTER USING IV ACCESS Allergies Allergy/AdvReac Type Severity Reaction Status Date / Time No Known Allergies Allergy Verified 11/15/18 11:12 Home Medications Medication Instructions Recorded Confirmed Type No Known Home Medications 11/15/18 11/15/18 History Exam Vital signs: Vital Signs 11/18/18 20:00 11/19/18 00:00 11/19/18 08:00 Temperature 97.2 F L 97.8 F 97.6 F Pulse Rate 101 H 108 H 90 Respiratory Rate 19 20 18 Blood Pressure 109/66 121/77 104/60 Pulse Oximetry 100 100 100 11/19/18 12:00 11/19/18 16:00 Temperature 98.0 F 97.9 F Pulse Rate 90 101 H Respiratory Rate 18 19 Blood Pressure 100/72 105/65 Pulse Oximetry 99 97 Intake & Output 11/18/18 11/19/18 11/19/18 18:59 06:59 18:59 Intake Total 1260 / 1260 687.5 / 687.5 Output Total 300 / 300 Balance 960 / 960 687.5 / 687.5 Weight 68.9 kg Intake: IV 300 / 300 407.5 / 407.5 Flexbumin 25% Inj 50 ML @ 60 50 / 50 50 / 50 mls/hr IV.SIG Q12H [facility] Rx#: [id number] NS Inj 250 ML @ 15 mls/hr IV. 0 / 0 SIG ONCE [facility] Rx#:[id number] Vancomycin Inj 750 MG In NS Inj 257.5 / 257.5 250 ML @ 250 mls/hr IV.SIG Q12H [facility] Rx#:[id number] Rocephin Inj 1,000 MG In NS Inj 100 / 100 100 / 100 100 ML @ 200 mls/hr IV.SIG Q12H [facility] Rx#:[id number] Oral 960 / 960 280 / 280 Intake (Blood Product) Amt 0 / 0 Prepooled Plts Leukoreduced 5d 0 / 0 Unit [id number] Prepooled Plts Leukoreduced 5d 0 / 0 Unit [id number] Output: Urine 300 / 300 Other: # Voids 1 3 Date of Last Bowel Movement 11/17/18 # Bowel Movements 0 - Constitutional no acute distress, average body habitus - Routine HEENT Exam Head: Present: normocephalic, atraumatic Eye: Present: EOMI, PERRL ENT: Present: mucous membranes moist, oropharynx clear Comments: multiple conjunctival petechia - Routine Neck Exam Present: supple. Absent: JVD, lymphadenopathy - Routine Chest/Breast/Axilla Exam Axillae: Absent: lymphadenopathy - Routine Respiratory Exam Present: CTA bilaterally. Absent: accessory muscle use, prolonged expiratory phase - Routine Cardiovascular Exam Present: RRR, S1, S2, murmur. Absent: gallop, rubs - Routine Abdominal Exam Present: soft, normoactive bowel sounds, tenderness (diffuse,mild). Absent: distended, rebound, organomegaly, mass - Routine Extremities Exam Present: edema (pedal soft pitting ). Absent: cyanosis, clubbing - Routine Skin Exam Present: intact, petechiae. Absent: cyanosis, erythema, jaundice - Routine Neurological Exam Present: alert, oriented X3, CN II-XII intact, moving all extremities. Absent: sensory deficit, motor deficit - Routine Psychiatric Exam Present: normal affect, cooperative Results - Labs CBC & Chem 7: 11/19/18 05:46 11/19/18 05:44 Labs: Laboratory Results - last 24 hr 11/17/18 11/19/18 11/19/18 07:46 05:44 05:46 WBC 11.3 H RBC 3.14 L Hgb 8.4 L Hct 25.8 L MCV 82.0 MCH 26.7 L MCHC 32.6 RDW 27.4 H Plt Count 25 L D MPV 8.7 Prelim Diff (Auto) Slide review pending Neut % (Auto) 75.6 H Lymph % (Auto) 14.2 Reynolds % (Auto) 8.5 H Eos % (Auto) 0.9 Baso % (Auto) 0.8 Neut # (Auto) 8.5 H Lymph # (Auto) 1.6 Reynolds # (Auto) 1.0 H Eos # (Auto) 0.1 Baso # (Auto) 0.1 WBC Differential . Diff Scan Auto diff confirmed Differential Comment . Ovalocytes 1+ H Keratocytes Occ H Sodium 128 L Potassium 3.9 Chloride 98 Carbon Dioxide 18.0 L Anion Gap 12 BUN 34 H Creatinine 1.43 H Estimated GFR 54 L Random Glucose 89 Hemoglobin A1c 4.6 Calcium 7.3 L* Calcium Adj for Albumin 8.4 L Total Bilirubin 1.7 H AST 33 ALT 14 Alkaline Phosphatase 122 H Total Protein 6.8 Albumin 2.6 L - Imaging Abdomen/Pelvis CT 11/15/18 12:14 CONCLUSION: 1. 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 This needs to be correlated with patient's medical and surgical history. 2. Fatty infiltration of the liver. 3. 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 The largest defect measures approximately 3 cm x 4 cm. 4. Mild to moderate abdominal ascites. 5. Small bilateral effusions, right greater than left. Abdomen Ultrasound 11/16/18 00:00 CONCLUSION: 1. Very small amount of ascites. 2. Lobulated hepatic contour suggestive of cirrhosis. Liver Ultrasound 11/16/18 00:00 CONCLUSION: 1. There is some ascites around the liver. Mildly fatty liver. The gallbladder wall is thickened, possibly related to the ascites. Negative sonographic Flanagan sign Chest X-Ray 11/17/18 00:00 CONCLUSION: No acute cardiopulmonary Bone Biopsy 11/18/18 00:00 CONCLUSION: 1. Uncomplicated core needle biopsy of the Right Iliac crest. 2. Bone marrow aspirate, Right Iliac crest. Guidance Ultrasound 11/18/18 00:00 CONCLUSION: 1. Uncomplicated ultrasound guided venous access. 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 Will consult pharmacy fu ID/S on GPC final rec's per ID/S on culture ANticipate IV abx x 6 wks Not a surg candidate 2/2 IVDU status
[2018-11-19] MEDS ORDERED: Gentamicin Consult Pharmacy 1 EACH OTHER SCH (18:00)
[2018-11-19] MEDS: Gentamicin Inj 70 MG in Sodium Chlor 0.9% Inj 100 ML IV.SIG SCH (22:13)
[2018-11-19] MEDS ORDERED: Pharmacy Ordered Lab Info OTHER ONE (22:45)
--- NOTE | 2018-11-20 07:52 | P.PNFP ---
Subjective Interval history: Patient complains that his back seems to be leaking fluid from his bone marrow biopsy site. Discussed with patient that this is likely fluid from all of his edema. Discussed plan of care with patient. <Brittanie JocelynHuyColby - 11/20/18 12:25> Results - Labs Result diagrams: 11/20/18 07:09 11/20/18 07:09 <BrittneyHuy pope Wilfredo - 11/20/18 13:09> Abnormal lab results 11/19/18 11/20/18 11/20/18 Range/Units 22:30 07:09 07:09 WBC 14.1 H (4.0-11.0) th/mm3 RBC 3.13 L (4.50-5.90) mil/mm3 Hgb 8.4 L (13.0-17.0) gm/dL Hct 26.6 L (39.0-51.0) % MCH 26.7 L (27.0-34.0) pg MCHC 31.5 L (32.0-36.0) % RDW 26.4 H (11.6-17.2) % Plt Count 17 L* D (150-450) th/mm3 Neut % (Auto) 78.3 H (16.0-70.0) % Neut # (Auto) 11.0 H (1.8-7.7) th/mm3 Pender # (Auto) 1.1 H (0.0-0.9) th/mm3 Toxic Granulation 1+ H (None) Platelet Estimate Rare L (Normal) Polychromasia 2.0 H (0.0-1.9) % PT (9.8-11.6) sec APTT (23.4-31.7) sec Sodium 128 L (136-145) meq/L Chloride 97 L (98-107) meq/L Carbon Dioxide 17.4 L (21.0-32.0) meq/L BUN 43 H (7-18) mg/dL Creatinine 1.88 H (0.60-1.30) mg/dL Estimated GFR 40 L (>89) mL/min Random Glucose 54 L (74-106) mg/dL Calcium 7.9 L (8.5-10.1) mg/dL Vancomycin Trough 20.6 H (5.0-10.0) mcg/mL 11/20/18 Range/Units 07:09 WBC (4.0-11.0) th/mm3 RBC (4.50-5.90) mil/mm3 Hgb (13.0-17.0) gm/dL Hct (39.0-51.0) % MCH (27.0-34.0) pg MCHC (32.0-36.0) % RDW (11.6-17.2) % Plt Count (150-450) th/mm3 Neut % (Auto) (16.0-70.0) % Neut # (Auto) (1.8-7.7) th/mm3 Pender # (Auto) (0.0-0.9) th/mm3 Toxic Granulation (None) Platelet Estimate (Normal) Polychromasia (0.0-1.9) % PT 20.3 H (9.8-11.6) sec APTT 43.6 H (23.4-31.7) sec Sodium (136-145) meq/L Chloride (98-107) meq/L Carbon Dioxide (21.0-32.0) meq/L BUN (7-18) mg/dL Creatinine (0.60-1.30) mg/dL Estimated GFR (>89) mL/min Random Glucose (74-106) mg/dL Calcium (8.5-10.1) mg/dL Vancomycin Trough (5.0-10.0) mcg/mL Short CBC 11/20/18 Range/Units 07:09 WBC 14.1 H (4.0-11.0) th/mm3 Hgb 8.4 L (13.0-17.0) gm/dL Hct 26.6 L (39.0-51.0) % Plt Count 17 L* D (150-450) th/mm3 BMP 11/20/18 07:09 Sodium 128 L Potassium 4.7 D Chloride 97 L Carbon Dioxide 17.4 L BUN 43 H Creatinine 1.88 H Calcium 7.9 L <Huy Pandey - 11/20/18 13:09> Abnormal lab results 11/19/18 Range/Units 22:30 Vancomycin Trough 20.6 H (5.0-10.0) mcg/mL <Huy Mckenzie - 11/20/18 07:52> - Imaging Impressions Venous Doppler Study 11/20/18 00:00 CONCLUSION: 1. The study is negative for lower extremity deep venous thrombosis. <Huy Pandey Wilfredo - 11/20/18 13:09> Physical Exam Vital signs: Vital Signs 11/19/18 16:00 11/19/18 20:00 11/20/18 00:00 Temperature 97.9 F 98.2 F 97.7 F Pulse Rate 101 H 101 H 101 H Respiratory Rate 19 18 17 Blood Pressure 105/65 114/54 L 100/67 Pulse Oximetry 97 99 96 11/20/18 08:00 11/20/18 12:00 Temperature 97.6 F 98.1 F Pulse Rate 104 H 100 H Respiratory Rate 16 17 Blood Pressure 100/62 107/60 Pulse Oximetry 96 97 Intake & Output 11/19/18 11/20/18 11/20/18 18:59 06:59 18:59 Intake Total 100 / 100 979.25 / 979.25 459.25 / 459.25 Output Total 3 / 3 Balance 100 / 100 976.25 / 976.25 459.25 / 459.25 Weight 70.4 kg Intake: IV 100 / 100 359.25 / 359.25 459.25 / 459.25 Gentamicin Inj 70 MG In NS Inj 101.75 / 101.75 101.75 / 101.75 100 ML @ 203.5 mls/hr IV.SIG Q8H [facility] Rx#:[id number] Vancomycin Inj 750 MG In NS Inj 257.5 / 257.5 257.5 / 257.5 250 ML @ 250 mls/hr IV.SIG Q12H [facility] Rx#:[id number] Rocephin Inj 2,000 MG In NS Inj 100 / 100 100 / 100 100 ML @ 200 mls/hr IV.SIG Q24H [facility] Rx#:[id number] Oral 620 / 620 Output: Urine 3 / 3 Other: Date of Last Bowel Movement 11/17/18 # Bowel Movements 0 <Huy Pandey Wilfredo - 11/20/18 13:09> Vital Signs 11/19/18 08:00 11/19/18 12:00 11/19/18 16:00 Temperature 97.6 F 98.0 F 97.9 F Pulse Rate 90 90 101 H Respiratory Rate 18 18 19 Blood Pressure 104/60 100/72 105/65 Pulse Oximetry 100 99 97 11/19/18 20:00 11/20/18 00:00 Temperature 98.2 F 97.7 F Pulse Rate 101 H 101 H Respiratory Rate 18 17 Blood Pressure 114/54 L 100/67 Pulse Oximetry 99 96 Intake & Output 11/19/18 11/20/18 11/20/18 18:59 06:59 18:59 Intake Total 100 / 100 979.25 / 979.25 Output Total 3 / 3 Balance 100 / 100 976.25 / 976.25 Weight 70.4 kg Intake: IV 100 / 100 359.25 / 359.25 Gentamicin Inj 70 MG In NS Inj 101.75 / 101.75 100 ML @ 203.5 mls/hr IV.SIG Q8H [facility] Rx#:[id number] Vancomycin Inj 750 MG In NS Inj 257.5 / 257.5 250 ML @ 250 mls/hr IV.SIG Q12H [facility] Rx#:[id number] Rocephin Inj 1,000 MG In NS Inj 100 / 100 100 ML @ 200 mls/hr IV.SIG Q12H [facility] Rx#:[id number] Oral 620 / 620 Output: Urine 3 / 3 Other: Date of Last Bowel Movement 11/17/18 # Bowel Movements 0 <Brittanie R3,Huy Hope - 11/20/18 07:52> Narrative: GENERAL: 43-year-old, well nourished, well developed male sitting up in bed. In no acute distress. SKIN: Warm and dry. Pale. HEAD: Atraumatic. Normocephalic. EYES: EMOI. PERRLA. No injection or drainage. ENT: No nasal bleeding or discharge. Mucous membranes pale pink and moist. Airway patent. CARDIOVASCULAR: Regular rate and rhythm. Loud Systolic murmur. RESPIRATORY: No accessory muscle use. There are some bibasilar crackles, but otherwise clear to auscultation with equal breath sounds. No wheezes or rhonchi. GASTROINTESTINAL: Bowel sounds in all 4 quadrants. Abdomen mildly distended, with pitting edema of the lower abdomen MUSCULOSKELETAL: Extremities without clubbing, cyanosis. + anasarca with 2+ edema of bilateral lower extremities up to lower abdomen. No obvious deformities. No calf tenderness. NEUROLOGICAL: Awake and alert. No obvious cranial nerve deficits. Motor grossly within normal limits. PSYCHIATRIC: Appropriate mood and affect; insight and judgment normal. BACK: Small, clean, dry puncture site on back without active bleeding status post bone marrow biopsy; no surrounding erythema, warmth, purulence, tenderness to palpation. Leaking clear fluid from this bone marrow biopsy site with more fluid dripping with pushing on surrounding tissue <Brittanie BanksHuyColby - 11/20/18 12:25> Assessment and Plan - Assessment (1) Thrombocytopenia Code(s): D69.6 - Thrombocytopenia, unspecified Status: Acute (2) Anemia Code(s): D64.9 - Anemia, unspecified Status: Acute (3) Ascites Code(s): R18.8 - Other ascites Status: Acute (4) Abdominal pain Code(s): R10.9 - Unspecified abdominal pain Status: Acute (5) Nausea and vomiting Code(s): R11.2 - Nausea with vomiting, unspecified Status: Acute (6) Cough Code(s): R05 - Cough Status: Acute (7) Hyponatremia Code(s): E87.1 - Hypo-osmolality and hyponatremia Status: Acute (8) Splenic infarct Code(s): D73.5 - Infarction of spleen Status: Acute (9) Aortic stenosis Code(s): I35.0 - Nonrheumatic aortic (valve) stenosis Status: Chronic (10) Hx of intravenous drug use, in remission Code(s): Z87.898 - Personal history of other specified conditions Status: Chronic (11) Nutrition, metabolism, and development symptoms Code(s): R63.8 - Other symptoms and signs concerning food and fluid intake Status: Acute (12) DVT prophylaxis Status: Acute <KatherinHuy Wilfredo - 11/20/18 13:09> (1) Thrombocytopenia Code(s): D69.6 - Thrombocytopenia, unspecified Status: Acute (2) Anemia Code(s): D64.9 - Anemia, unspecified Status: Acute (3) Ascites Code(s): R18.8 - Other ascites Status: Acute (4) Abdominal pain Code(s): R10.9 - Unspecified abdominal pain Status: Acute (5) Nausea and vomiting Code(s): R11.2 - Nausea with vomiting, unspecified Status: Acute (6) Cough Code(s): R05 - Cough Status: Acute (7) Hyponatremia Code(s): E87.1 - Hypo-osmolality and hyponatremia Status: Acute (8) Splenic infarct Code(s): D73.5 - Infarction of spleen Status: Acute (9) Aortic stenosis Code(s): I35.0 - Nonrheumatic aortic (valve) stenosis Status: Chronic (10) Hx of intravenous drug use, in remission Code(s): Z87.898 - Personal history of other specified conditions Status: Chronic (11) Nutrition, metabolism, and development symptoms Code(s): R63.8 - Other symptoms and signs concerning food and fluid intake Status: Acute (12) DVT prophylaxis Status: Acute <Huy Mckenzie - 11/20/18 12:29> - Assessment and Plan Thrombocytopenia HCV + Cirrhosis + Sepsis with positive blood cultures and aortic valve vegetation d/w Dr Medina, s/p BM biopsy on 11/18/18, no shistocytes to suggest TTP -hold anticoagulants -Platelet count decreased from 25,000 status post platelet transfusion (2 units ) back to 17,000 overnight Hematology following. DDx includes sepsis, hemolysis, hepatitis, primary bone disorder. -Bone marrow biopsy performed 11/18/18. 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 Large mobile irregular mass approximately 1-2 cm encompassing most of aortic leaflets, consistent with vegetation on the aortic valve. -2 of 2 blood cultures from 11/15/2018 positive for gram-positive cocci, strep; blood cultures from 11/10/2018 show NGTD -Vancomycin IV started on (11/18/18 - present), renally dosed per pharmacy -ID consult for assistance with set up of outpatient IV treatment for endocarditis Abdominal pain SBP v Splenic infarcts -Treating SBP empirically with ceftriaxone IV 1 g daily -Avoid Tylenol and NSAIDs with suspected cirrhosis and solitary kidney -Pain scale with oxycodone -Abdominal ultrasound showed small amount of ascites Ascites -With severe thrombocytopenia, will hold off on paracentesis. Only small amount of fluid visualized on ultrasound. Paracentesis would not likely be therapeutic. -Continue empiric treatment for SBP -Continue albumin and Lasix -We will add spironolactone 100 mg p.o. daily today; continue to monitor hyponatremia and JUAN CARLOS -May consider diagnostic paracentesis when platelet levels rise Tadeo -Monica Colon -Chest x-ray on 11/17 showed no acute cardiopulmonary process -Currently on Rocephin for empiric management of SBP Anemia, improved - status post units packed red blood cells on 11/17 Liver failure does appear to have dysfunction has possibly NAFLD on imaging -autoimmune liver panel ordered Splenic infarcts hypercoaguable, possibly from liver dysfunction -Right upper quadrant ultrasound showed mildly fatty liver, thickened gallbladder wall possibly related to the ascites, negative sonographic Flanagan sign, no obvious defects of the aorta, IVC or portal vasculature -Echocardiogram showed aortic vegetation -conservative management now hypotension expect BPs to run low in ascitic patient -Albumin infusion every 12hr hypo Na status post NS infusion, improved some suspect more cirrhotic picture -will see if it improves with albumin and Lasix solitary left kidney -Avoid nephrotoxic meds -Renally dose all antibiotics per pharmacy conditions Itching, resolved Patient complaining of itchy skin following morphine administration -IV morphine discontinued -Benadryl as needed for itching + HCV antibody last exposure 3 months ago -HCV Quant and Genotype pending FEN Fluids: IVF held as patient is fluid overloaded. Tolerating p.o. fluids well. Electrodes: Hyponatremia stable Nutrition: Regular diet DVT prophylaxis SCDs and compression hose; chemical anticoagulation contraindicated given thrombocytopenia dw Dr. Pandey and Dr. Redding <[address] - 11/20/18 12:44> - Attending Attestation The exam, history, and the medical decision-making described in the above note were completed with the assistance of the resident physician. I reviewed and agree with the findings presented. I attest that I had a [id number] encounter with the patient on the same day, and personally performed and documented my assessment and findings in the medical record. more edematous today, pale, edema even up to abdomen. has some crackles at lung bases, pain controlled ok. Infectious endocarditis known IVDU ID following, on rocephin + vanc + gent not surgical candidate at this point Thrombocytopenia seems to stay about 17K, only increased with transfusion known HCV exposure, cirrhosis, and probably sepsis 2/2 above Hematology following BM biopsy pending HFrEF 2/2 #1, appears to be worsening severe TR with pulm HTN and mod with visualized vegetation on aortic valve on TTE Currently on PO lasix, adding IV dose and spironolactone today may need further diuresis but need to watch kidneys for hepatorenal, will trend and consult cardiology to help with management anasarca likely combo of ascites and severe TR and pulm HTN Cirrhosis - likely 2/2 HCV but could be 2/2 embolic phenomenon as well, also some NAFLD on imaging - HCV VL pending, AFP neg - Lasix + Spironolactone JUAN CARLOS concern for impending hepatorenal/cardiorenal syndrome, has solitary left kidney s/p 3d albumin therapy increase diuresis for now if Cr not improving tomorrow will consult nephrology Splenic Infarcts 2/2 IE conservative mgmt and treat IE Anemia - stable - BM biopsy pending hyponatremia likely 2/2 cirrhosis and HF continue to monitor may consult nephro if renal function worsens + HCV antibody last exposure 3 months ago -HCV Quant and Genotype pending Abdominal pain splenic infarcts +/- SBP will try to be sparing with narcotics, on PO only. <Huy Pandey - 11/20/18 13:09>
[2018-11-20] MEDS: Gentamicin Inj 70 MG in Sodium Chlor 0.9% Inj 100 ML IV.SIG SCH ×3 (07:57→23:03)
[2018-11-20 08:01] LABS: Baso # (Auto) 0.1 th/mm3 (0.0-0.2); Baso % (Auto) 0.9 % (0.0-2.0); Eos % (Auto) 0.2 % (0.0-4.0); Hematocrit 26.6 % (39.0-51.0); Hemoglobin 8.4 gm/dL (13.0-17.0); Lymph # (Auto) 1.8 th/mm3 (1.0-4.8); Lymph % (Auto) 12.7 % (9.0-44.0); Mean Corpuscular HGB Conc 31.5 % (32.0-36.0); Mean Corpuscular Hemoglobin 26.7 pg (27.0-34.0); Mean Corpuscular Volume 84.9 fL (80.0-100.0); Mean Platelet Volume 8.7 fL (7.0-11.0); Mono # (Auto) 1.1 th/mm3 (0.0-0.9); Mono % (Auto) 7.9 % (0.0-8.0); Neut % (Auto) 78.3 % (16.0-70.0); Red Blood Count 3.13 mil/mm3 (4.50-5.90); Red Cell Distribution Width 26.4 % (11.6-17.2); White Blood Count 14.1 th/mm3 (4.0-11.0)
[2018-11-20 08:06] LABS: Activated Partial Thrombo Time 43.6 sec (23.4-31.7); Prothrombin Time 20.3 sec (9.8-11.6)
[2018-11-20 08:10] LABS: Platelet Count 17 th/mm3 (150-450)
[2018-11-20 08:32] LABS: Calcium 7.9 mg/dL (8.5-10.1); Carbon Dioxide 17.4 meq/L (21.0-32.0); Potassium 4.7 meq/L (3.5-5.1)
--- NOTE | 2018-11-20 08:53 | P.PNONC ---
Subjective Interval history: Afebrile Patient reports he feels well and has walked a lap in the hallways on the floor Denies bleeding Denies headache No pain at bone marrow biopsy site Has been seeping fluid from site with generalized edema Objective Vital Signs/Intake & Output: Vital Signs 11/19/18 12:00 11/19/18 16:00 11/19/18 20:00 Temperature 98.0 F 97.9 F 98.2 F Pulse Rate 90 101 H 101 H Respiratory Rate 18 19 18 Blood Pressure 100/72 105/65 114/54 L Pulse Oximetry 99 97 99 11/20/18 00:00 Temperature 97.7 F Pulse Rate 101 H Respiratory Rate 17 Blood Pressure 100/67 Pulse Oximetry 96 Intake & Output 11/19/18 11/20/18 11/20/18 18:59 06:59 18:59 Intake Total 100 / 100 979.25 / 979.25 357.5 / 357.5 Output Total 3 / 3 Balance 100 / 100 976.25 / 976.25 357.5 / 357.5 Weight 155 lb 3.287 oz Intake: IV 100 / 100 359.25 / 359.25 357.5 / 357.5 Gentamicin Inj 70 MG In NS Inj 101.75 / 101.75 100 ML @ 203.5 mls/hr IV.SIG Q8H JAZLYN Rx#:[id number] Vancomycin Inj 750 MG In NS Inj 257.5 / 257.5 257.5 / 257.5 250 ML @ 250 mls/hr IV.SIG Q12H JAZLYN Rx#:[id number] Rocephin Inj 2,000 MG In NS Inj 100 / 100 100 / 100 100 ML @ 200 mls/hr IV.SIG Q24H JAZLYN Rx#:[id number] Oral 620 / 620 Output: Urine 3 / 3 Other: Date of Last Bowel Movement 11/17/18 # Bowel Movements 0 Result Diagrams: 11/20/18 07:09 11/20/18 07:09 Laboratory Results: Laboratory Results - last 24 hr 11/16/18 11/19/18 11/20/18 07:38 22:30 07:09 WBC 14.1 H RBC 3.13 L Hgb 8.4 L Hct 26.6 L MCV 84.9 MCH 26.7 L MCHC 31.5 L RDW 26.4 H Plt Count 17 L* D MPV 8.7 Prelim Diff (Auto) Slide review pending Neut % (Auto) 78.3 H Lymph % (Auto) 12.7 [place] % (Auto) 7.9 Eos % (Auto) 0.2 Baso % (Auto) 0.9 Neut # (Auto) 11.0 H Lymph # (Auto) 1.8 Rush # (Auto) 1.1 H Eos # (Auto) 0.0 Baso # (Auto) 0.1 Differential Comment . PT INR APTT Sodium Potassium Chloride Carbon Dioxide Anion Gap BUN Creatinine Estimated GFR Random Glucose Calcium Vancomycin Trough 20.6 H HCV RNA Genotype Not detected 11/20/18 11/20/18 07:09 07:09 WBC RBC Hgb Hct MCV MCH MCHC RDW Plt Count MPV Prelim Diff (Auto) Neut % (Auto) Lymph % (Auto) Rush % (Auto) Eos % (Auto) Baso % (Auto) Neut # (Auto) Lymph # (Auto) [place] # (Auto) Eos # (Auto) Baso # (Auto) Differential Comment PT 20.3 H INR 2.0 APTT 43.6 H Sodium 128 L Potassium 4.7 D Chloride 97 L Carbon Dioxide 17.4 L Anion Gap 14 BUN 43 H Creatinine 1.88 H Estimated GFR 40 L Random Glucose 54 L Calcium 7.9 L Vancomycin Trough HCV RNA Genotype Culture Results: Microbiology 11/18/18 20:05 Aerobic Blood Culture - Preliminary Blood - Peripheral No growth in 1 day Anaerobic Blood Culture - Preliminary No growth in 1 day 11/18/18 20:00 Aerobic Blood Culture - Preliminary Blood - Peripheral No growth in 1 day Anaerobic Blood Culture - Preliminary No growth in 1 day 11/15/18 18:15 Aerobic Blood Culture - Preliminary Blood - Peripheral gram positive cocci Anaerobic Blood Culture - Preliminary No growth in 4 days 11/15/18 18:30 Aerobic Blood Culture - Preliminary Blood - Peripheral No growth in 4 days Anaerobic Blood Culture - Preliminary No growth in 4 days Medications: Active Medications Generic Name Dose Route Start Last Admin Trade Name Freq PRN Reason Stop Dose Admin Benzonatate 100 mg 11/16/18 21:53 11/18/18 08:36 Tessalon Perles PO 100 mg Q8H PRN Administration COUGH Diphenhydramine HCl 25 mg 11/18/18 08:49 11/18/18 10:06 Benadryl PO 25 mg Q6H PRN Administration ITCHING Furosemide 40 mg 11/18/18 18:00 11/19/18 19:22 Lasix PO Not Given BID@0900,1800 JAZLYN Ceftriaxone Sodium 2,000 mg/ 100 mls @ 200 mls/hr 11/19/18 21:00 11/20/18 08: 07 Sodium Chloride IV.SIG Infused Q24H JAZLYN Infusion Gentamicin Sulfate 70 mg/ 101.75 mls @ 203.5 mls/hr 11/19/18 22:00 11/20/18 07:57 Sodium Chloride IV.SIG 200 mls/hr Q8H JAZLYN Administration Morphine Sulfate 2 mg 11/17/18 11:23 11/17/18 22:47 Morphine Inj IV.PUSH 2 mg Q3H PRN Administration BREAKTHROUGH PAIN Oxycodone HCl 10 mg 11/18/18 12:42 11/20/18 03:14 Roxicodone PO 10 mg Q4H PRN Administration PAIN SCALE 6 TO 10 Oxycodone HCl 5 mg 11/18/18 12:42 11/19/18 17:09 Roxicodone PO 5 mg Q4H PRN Administration PAIN SCALE 3 TO 5 Sodium Chloride 2 ml 11/15/18 21:00 11/19/18 22:13 Ns Flush IV.FLUSH 2 ml BID JAZLYN Administration Objective Remarks: GENERAL: Middle-aged male sitting up in bed watching TV in no acute distress SKIN: Warm and dry. Puncture carleen from bone marrow biopsy covered with dressing. HEAD: Normocephalic. EYES: No scleral icterus. No injection or drainage. MOUTH: [place] moist mucous membranes, no petechiae or lesions noted. NECK: Supple, trachea midline. CARDIOVASCULAR: Regular rate and rhythm without murmurs. RESPIRATORY: Breath sounds clear, equal bilaterally. No accessory muscle use. GASTROINTESTINAL: Abdomen soft, non-tender, nondistended. EXTREMITIES: No cyanosis. Generalized edema but more so on the right lower extremity MUSCULOSKELETAL: Adequate muscle tone. NEUROLOGICAL: No obvious focal deficit. Awake, alert, and oriented x3. Assessment/Plan - Plan Mr. Gallagher is a 43-year-old male patient, who presented to the hospital with chest pain. He reports a recent move to [place] from [place]. He has a history of IV drug use, last used 3 months ago. He denies EtOH abuse. Hematology was consulted for severe anemia and thrombocytopenia. Plan: 1. Patient is status post bone marrow biopsy on . Results currently pending. 2. He is currently on vancomycin, gentamicin and ceftriaxone for the endocarditis seen on echocardiogram. Blood cultures from 11/15/18 show gram- positive cocci. He has been afebrile. Management per infectious disease. 3. We reviewed his blood counts today that show platelet count slightly decreased at 17,000. As he is not having any bleeding there is no need for transfusion at this point. His hemoglobin is stable at 8.4. Patient overall feels well and has no acute complaints. We will continue to monitor CBC. 4. Noted he has increased edema in the right lower extremity. As thrombosis unlikely due to severe thrombocytopenia this is not unheard of. Will get ultrasound to evaluate for DVT. - Attending Statement The exam, history, and the medical decision-making described in the above note were completed with the assistance of the mid-level provider. I reviewed and agree with the findings presented. I attest that I had a [id number] encounter with the patient on the same day, and personally performed and documented my assessment and findings in the medical record. Resting comfortably in bed. No distress. Continues with anemia, thrombocytopenia. Bone marroe results pending. On abx therapy for infectious endocarditis.
[2018-11-20] MEDS: Furosemide 40 MG Tablet PO SCH ×2 (09:25→17:50)
--- NOTE | 2018-11-20 10:14 | US ---
EXAM DATE: 11/20/2018 10:08 AM EST AGE/SEX: 43 years / Male INDICATIONS: Right lower extremity edema. CLINICAL DATA: This is the patient's initial encounter. Patient reports that signs and symptoms have been present for 1 day and indicates a pain score of 2/10. MEDICAL/SURGICAL HISTORY: . IV drug use. Aortic stenosis diagnosed as a child. Former smoker. None. COMPARISON: No prior exams available for comparison. TECHNIQUE: Venous ultrasound of both lower extremities was performed from the inguinal ligament to t he proximal calf. Real-time, color Doppler and spectral tracing, compression and augmentation techni ques were used. FINDINGS: Normal compression of the deep venous system from the inguinal region to the proximal calf . No echogenic clot is seen. Normal response of the venous system to augmentation and respiration. CONCLUSION: 1. The study is negative for lower extremity deep venous thrombosis. Electronically signed by: Lory Hylton MD Board Certified Radiologist 11/20/2018 10:13 AM EST
[2018-11-20] MEDS ORDERED: Vancomycin Inj 1,000 MG in Sodium Chlor 0.9% Inj 250 ML IV.SIG SCH (11:00)
[2018-11-20 11:09] LABS: Toxic Granulation 1+
[2018-11-20 11:10] LABS: Platelet Estimate Rare (Normal); Platelet Morphology Normal (Normal)
--- NOTE | 2018-11-20 16:51 | P.PNID ---
Subjective Remarks: doing about the same improved abd pain plts remain low growing strep spp - prelim ID Antibiotics: vanco gent CFTX Past Medical History: IVDU Allergies/Adverse Reactions: Allergies No Known Allergies Allergy (Verified 11/15/18 11:12) Objective Vital Signs 11/19/18 20:00 11/20/18 00:00 11/20/18 08:00 Temperature 98.2 F 97.7 F 97.6 F Pulse Rate 101 H 101 H 104 H Respiratory Rate 18 17 16 Blood Pressure 114/54 L 100/67 100/62 Pulse Oximetry 99 96 96 11/20/18 12:00 Temperature 98.1 F Pulse Rate 100 H Respiratory Rate 17 Blood Pressure 107/60 Pulse Oximetry 97 Intake & Output 11/19/18 11/20/18 11/20/18 18:59 06:59 18:59 Intake Total 100 / 100 979.25 / 979.25 709.25 / 709.25 Output Total 3 / 3 Balance 100 / 100 976.25 / 976.25 709.25 / 709.25 Weight 70.4 kg Intake: IV 100 / 100 359.25 / 359.25 709.25 / 709.25 Gentamicin Inj 70 MG In NS Inj 101.75 / 101.75 101.75 / 101.75 100 ML @ 203.5 mls/hr IV.SIG Q8H JAZLYN Rx#:[id number] Vancomycin Inj 1,000 MG In NS 250 / 250 Inj 250 ML @ 250 mls/hr IV.SIG Q24H JAZLYN Rx#:[id number] Vancomycin Inj 750 MG In NS Inj 257.5 / 257.5 257.5 / 257.5 250 ML @ 250 mls/hr IV.SIG Q12H JAZLYN Rx#:[id number] Rocephin Inj 2,000 MG In NS Inj 100 / 100 100 / 100 100 ML @ 200 mls/hr IV.SIG Q24H JAZLYN Rx#:[id number] Oral 620 / 620 Output: Urine 3 / 3 Other: Date of Last Bowel Movement 11/17/18 # Bowel Movements 0 11/15/18 18:15 Blood - Peripheral Aerobic Blood Culture - Preliminary Streptococcus species 11/15/18 18:15 Blood - Peripheral Anaerobic Blood Culture - Preliminary Streptococcus species 11/18/18 20:05 Blood - Peripheral Aerobic Blood Culture - Preliminary No growth in 2 days 11/18/18 20:05 Blood - Peripheral Anaerobic Blood Culture - Preliminary No growth in 2 days 11/18/18 20:00 Blood - Peripheral Aerobic Blood Culture - Preliminary No growth in 2 days 11/18/18 20:00 Blood - Peripheral Anaerobic Blood Culture - Preliminary No growth in 2 days 11/15/18 18:30 Blood - Peripheral Aerobic Blood Culture - Preliminary gram positive cocci 11/15/18 18:30 Blood - Peripheral Anaerobic Blood Culture - Preliminary gram positive cocci Lab - Hematology Results 11/19/18 11/20/18 05:46 07:09 WBC 11.3 H 14.1 H RBC 3.14 L 3.13 L Hgb 8.4 L 8.4 L Hct 25.8 L 26.6 L MCV 82.0 84.9 MCH 26.7 L 26.7 L MCHC 32.6 31.5 L RDW 27.4 H 26.4 H Plt Count 25 L D 17 L* D MPV 8.7 8.7 Prelim Diff (Auto) Slide review pending Slide review pending Neut % (Auto) 75.6 H 78.3 H Lymph % (Auto) 14.2 12.7 [place] % (Auto) 8.5 H 7.9 Eos % (Auto) 0.9 0.2 Baso % (Auto) 0.8 0.9 Neut # (Auto) 8.5 H 11.0 H Lymph # (Auto) 1.6 1.8 [place] # (Auto) 1.0 H 1.1 H Eos # (Auto) 0.1 0.0 Baso # (Auto) 0.1 0.1 WBC Differential . . Diff Scan Auto diff confirmed Auto diff confirmed Differential Comment . . Toxic Granulation 1+ H Platelet Estimate Rare L Platelet Morphology Normal Polychromasia 2.0 H Ovalocytes 1+ H Keratocytes Occ H Lab - Chemistry Results 11/17/18 11/19/18 11/20/18 07:46 05:44 07:09 Sodium 128 L 128 L Potassium 3.9 4.7 D Chloride 98 97 L Carbon Dioxide 18.0 L 17.4 L Anion Gap 12 14 BUN 34 H 43 H Creatinine 1.43 H 1.88 H Estimated GFR 54 L 40 L Random Glucose 89 54 L Hemoglobin A1c 4.6 Calcium 7.3 L* 7.9 L Calcium Adj for Albumin 8.4 L Total Bilirubin 1.7 H AST 33 ALT 14 Alkaline Phosphatase 122 H Total Protein 6.8 Albumin 2.6 L Imaging: ITS Impressions Abdomen/Pelvis CT 11/15/18 12:14 CONCLUSION: 1. 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 This needs to be correlated with patient's medical and surgical history. 2. Fatty infiltration of the liver. 3. 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 The largest defect measures approximately 3 cm x 4 cm. 4. Mild to moderate abdominal ascites. 5. Small bilateral effusions, right greater than left. Abdomen Ultrasound 11/16/18 00:00 CONCLUSION: 1. Very small amount of ascites. 2. Lobulated hepatic contour suggestive of cirrhosis. Liver Ultrasound 11/16/18 00:00 CONCLUSION: 1. There is some ascites around the liver. Mildly fatty liver. The gallbladder wall is thickened, possibly related to the ascites. Negative sonographic Flanagan sign Chest X-Ray 11/17/18 00:00 CONCLUSION: No acute cardiopulmonary Bone Biopsy 11/18/18 00:00 CONCLUSION: 1. Uncomplicated core needle biopsy of the Right Iliac crest. 2. Bone marrow aspirate, Right Iliac crest. Guidance Ultrasound 11/18/18 00:00 CONCLUSION: 1. Uncomplicated ultrasound guided venous access. Venous Doppler Study 11/20/18 00:00 CONCLUSION: 1. The study is negative for lower extremity deep venous thrombosis. Physical Exam: GENERAL: NAD SKIN: Warm and dry. petechail rash bl feet HEAD: Atraumatic. Normocephalic. EYES: Pupils equal and round. No scleral icterus. No injection or drainage. ENT: No nasal bleeding or discharge. Mucous membranes pink and moist. conjunctival petechia present NECK: Trachea midline. CARDIOVASCULAR: Regular rate and rhythm. + murmur systolic 2-3 /6 RESPIRATORY: No accessory muscle use. Clear to auscultation. Breath sounds equal bilaterally. GASTROINTESTINAL: Abdomen soft, non-tender, mildly distended. Hepatic and splenic margins not palpable. + edematous abdomen MUSCULOSKELETAL: Extremities without clubbing, cyanosis, + 1-2 pitting edema. No obvious deformities. NEUROLOGICAL: Awake and alert. Non focal . Normal speech. 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 Will consult pharmacy fu ID/S on GPC final rec's per ID/S on culture ANticipate IV abx x 6 wks Not a surg candidate 2/2 IVDU status fu repeat cultures untill final
[2018-11-20] MEDS ORDERED: Pharmacy Ordered Lab Info OTHER ONE ×2 (21:30→23:30)
[2018-11-20 23:18] VITALS: TEMP 97.8
--- NOTE | 2018-11-21 02:39 | MB ---
cc: Nathaniel Hutchinson DO DATE: 11/20/2018 REASON FOR CONSULTATION: Endocarditis. HISTORY OF PRESENT ILLNESS: Gilberto Gallagher is a 43-year-old male who presented to [facility] Emergency Room due to lower abdominal pain for 7-10 days. He feels that his abdomen feels full and distended. He has vomited 2 or 3 times over the past few days. He has also noted some shortness of breath. He denies any chest pain. He has not had any fevers or chills. He underwent an echocardiogram and on this was found to have a large mobile irregular vegetation consistent with endocarditis. I was asked to see him due to this. In seeing him, he is currently hemodynamically stable without chest pain or shortness of breath. While here, he was noted to be thrombocytopenic as well as anemic. He has also had acute kidney injury. Lastly, he had a CT showing possible splenic infarct. PAST MEDICAL HISTORY: 1. Aortic stenosis since he was a child, although he is asymptomatic and so he has never had surgery for this. 2. IV heroin use. PAST SURGICAL HISTORY: Denies. ALLERGIES: NO KNOWN DRUG ALLERGIES. MEDICATIONS: Denies. FAMILY HISTORY: Denies sudden cardiac within the family. SOCIAL HISTORY: The patient admits to heroin use with the last time being 3 months ago. Denies current tobacco or alcohol abuse. He smokes 2-3 packs of cigarettes a day. REVIEW OF SYSTEMS: Fourteen systems were reviewed including osteopathic. Pertinent positives and negatives above, otherwise negative. PHYSICAL EXAMINATION: VITAL SIGNS: Temperature 98.1, heart rate 100, blood pressure 107/60, respirations 17, pulse oximetry 97% on room air. GENERAL: The patient appears well, in no acute distress, alert, awake and oriented x 3. HEENT: Extraocular muscles intact. Mucous membranes moist. NECK: Supple. No JVD at 45 degrees. No carotid bruits heard bilaterally. Carotid upstroke is brisk in nature. HEART: Regular rate and rhythm. Positive first and second heart sounds with a II/ crescendo/decrescendo murmur to the right sternal border. LUNGS: Clear to auscultation bilaterally. No wheezes, rales or rhonchi. ABDOMEN: Soft, mildly tender, but no guarding or rebound tenderness noted. EXTREMITIES: Show no clubbing, cyanosis or edema. Femoral and distal pulses are intact bilaterally. NEUROLOGIC: No focal deficits. SKIN: Warm, dry and intact. OSTEOPATHIC: No kyphoscoliosis, lordosis or paraspinal tender points. LABORATORY DATA: Hemoglobin 8.4, hematocrit 26.6, platelets 17. INR 2.0. Potassium 4.7, BUN 43, creatinine 1.88. IMPRESSIONS: 1. Large mobile irregularity on the aortic valve consistent with endocarditis. 2. IV heroin abuse with his last time being 3 months ago. 3. Tobacco abuse. 4. Echocardiogram showing an ejection fraction of 50%, mild mitral regurgitation, moderate aortic stenosis (mean gradient 32), mild aortic regurgitation, aortic vegetation consistent with endocarditis, [id number] tricuspid regurgitation. RECOMMENDATIONS: 1. Mr. Gallagher presented with abdominal pain, which may be due to his splenic infarcts. 2. 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 3. Echo showing moderate aortic stenosis, which he has had since childhood, as well as a large vegetation on the aortic valve. 4. Eventually, he should undergo a transesophageal echocardiogram for further evaluation of his other valves. Ultimately, this is difficult with his current thrombocytopenia. Endocarditis can be viewed on transthoracic and so if his platelets do not recover, I do not believe that it is fully necessary to undergo a transesophageal echocardiogram. 5. Will discuss with CT surgery, but due to IV drug abuse history, will most likely be recommended continued antibiotics for his endocarditis. 6. Infectious disease is following to help with antibiotic choices. 7. I spoke to him for greater than 3 minutes about tobacco cessation. 8. Further recommendations will be made based on the hospital course. Thank you for allowing me to see Gilberto Gallagher. If there are any questions, please do not hesitate to call. DO NEELIMA Renteria/aguila , 12:37 AM , 12:50 AM
[2018-11-21] MEDS: Gentamicin Inj 70 MG in Sodium Chlor 0.9% Inj 100 ML IV.SIG SCH (05:49)
[2018-11-21 07:09] VITALS: RESP 18
[2018-11-21 07:32] LABS: Anion Gap 21 meq/L (5-15); Carbon Dioxide 9.1 meq/L (21.0-32.0); Chloride 98 meq/L (98-107); Potassium 6.3 meq/L (3.5-5.1); Sodium 128 meq/L (136-145)
[2018-11-21 07:33] LABS: Alanine Aminotransferase 76 U/L (12-78); Aspartate Aminotransferase 414 U/L (15-37); Blood Urea Nitrogen 56 mg/dL (7-18); Calcium 7.5 mg/dL (8.5-10.1); Glomerular Filtration Rate 27 mL/min (>89); Glucose,Random 9 mg/dL (74-106)
[2018-11-21 07:34] LABS: Albumin 1.6 g/dL (3.4-5.0); Alkaline Phosphatase 97 U/L (45-117)
[2018-11-21] MEDS ORDERED: Sodium Chlor 0.9% Inj 250 ML ONE (08:30)
--- NOTE | 2018-11-21 08:36 | P.PNADD ---
Addendum to Inpatient Note Reason for Addendum: Additional Documentation Additional information: Residents responded to CODE BLUE. Nurse reported that patient was found to be unconscious by phlebotomists and blood sugar was noted to be 18. Patient was found to be in asystole. ACLS protocol followed. Residence assisted with code. Patient received D50 with repeat BG reading of 73 and 86. Patient was intubated. ROSC was achieved and patient was transferred to [facility].
[2018-11-21] MEDS ORDERED: Calcium Chloride Inj 1 GM/10 ML Syringe ONE (08:39)
--- NOTE | 2018-11-21 09:04 | P.CONCC ---
History of Present Illness Service: Critical care Consult date: 11/21/18 Requesting Physician: Raquel Meyer Reason for Consult: Cardiac arrest Primary Care Provider: No Primary Care Physician Chief Complaint: Abdominal pain, nausea and vomiting. History of Present Illness: Gilberto Gallagher is a 43-year-old male who was admitted to [facility] , who has a history of moderate aortic stenosis, IVDU and after admission diagnosed with severe aortic valve endocarditis with Streptococcus. He had been followed by multiple specialists including infectious diseases and cardiology. Other diagnosis included severe sepsis, hyponatremia, hyperkalemia , acute kidney injury, thrombocytopenia, liver cirrhosis ascites. 2D echo had shown large, mobile, irregular, approximately 1 x 2 cm mass/vegetation on the aortic valve, moderate aortic valve stenosis. There was also moderate to severe tricuspid regurgitation, PA SP 75. Today a.m. he developed cardiac arrest,A CODE BLUE was called today a.m. initially was attended by Dr. Masters, ACLS protocol was followed patient received D50 for blood sugar of 9, 2 ampoules of bicarb, and 6 rounds of epinephrine. After 20 minutes of CPR patient had return of spontaneous circulation and was brought to the CVICU where I met him. Immediately after my evaluation patient started becoming bradycardic with widening of the QRS complex. Hyperkalemia was suspected and patient was given 2 g IV calcium. One ampule of bicarb also given. Patient continued to have bradycardia and became asystolic. ACLS protocol was followed again with myself at the bedside. For the second ACLS patient received total of 9 rounds of epinephrine, total 3 g of calcium including above, 4 A of bicarb , 1 ampoule of D50 empirically. Most of the time rhythm was asystole and PEA however brief periods of ventricular tachycardia x2 requiring DC cardioversion- which resulted in asystole again. After 38 minutes of CPR patient had no return of spontaneous circulation and remained in PEA and then asystole. Very brief period of feeble pulse once and at that time patient was started on Levophed infusion followed by epinephrine infusion. Levophed was over the course of CPR, increased to 40 mcg/min and epinephrine was increased to 10 and then 20 mcg/min. CPR time total 38 minutes. Patient did not have return of spontaneous circulation after our attempts for 38 minutes, total CPR time 58 minutes. ACLS protocol was discontinued and patient was pronounced at 8: 52 AM on 11/21/2018. Family practice Dr. Nayak updated the family and I also talked to the parents. When the patient had brief return of circulation I did do a bedside echo which showed wide open mitral regurgitation and aortic regurgitation, EF appeared to be less than 5% at that time, more like flickering movements of the ventricle Review of Systems unobtainable due to endotracheal tube, unobtainable due to mental status PMFSH - History History Provided By: Patient, Family Member - Medical / Surgical Hx Neg / Unobtainable Medical Problems Denied: Unable to Obtain Surgical History: Unable to Obtain - Medical History Medical History: Medical History (Last Reviewed 11/19/18 @ 16:54 by Lucia Banks MD) Patient denies medical problems - Surgical History Surgical History: Surgical History (Last Reviewed 11/19/18 @ 16:54 by Lucia Banks MD) No history of previous surgery - Family History Family History: Family History (Last Updated 11/19/18 @ 16:54 by Lucia Banks MD) Other Family history non-contributory - Tobacco History Second Hand Smoke Exposure: No Smoking Status: Never smoker Tobacco Type: Cigarettes - Alcohol History How Often Do You Have a Drink Containing Alcohol: Never - Substance Use History Substance History: Past History - 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 Last Used: 3 months Reason for Use: Get High - Travel History Recent Travel in the [place] Within the Last 8 Weeks: Yes Recent Travel Out of the Country Within the Last 8 Weeks: No - Immunization History Tetanus Immunization: Unsure Hx Influenza Vaccine This Season: No Medications and Allergies Active Medications: Active Medications Acetaminophen (Tylenol) 650 mg PO Q6HR PRN PRN Reason: PAIN SCALE 1 TO 2 Acetaminophen (Tylenol) 650 mg PO Q4H PRN PRN Reason: Temp > 100.4 Benzonatate (Tessalon Perles) 100 mg PO Q8H PRN PRN Reason: COUGH Last Admin: 11/18/18 08:36 Dose: 100 mg Diphenhydramine HCl (Benadryl) 25 mg PO Q6H PRN PRN Reason: ITCHING Last Admin: 11/18/18 10:06 Dose: 25 mg Furosemide (Lasix) 40 mg PO BID@0900,1800 JAZLYN Last Admin: 11/20/18 17:50 Dose: 40 mg Pharmacy Profile Note (Gentamicin Consult Pharmacy) 0 mls @ 0 mls/hr OTHER UNSCH [facility] Ceftriaxone Sodium 2,000 mg/ (Sodium Chloride) 100 mls @ 200 mls/hr IV.SIG Q24H [facility] Last Infusion: 11/20/18 22:16 Dose: Infused Gentamicin Sulfate 70 mg/ (Sodium Chloride) 101.75 mls @ 203.5 mls/hr IV.SIG Q8H [facility] Last Infusion: 11/21/18 06:19 Dose: Infused Vancomycin HCl 1,000 mg/ (Sodium Chloride) 250 mls @ 250 mls/hr IV.SIG Q24H [facility] Last Infusion: 11/20/18 16:19 Dose: Infused Miscellaneous Information ([facility] Ordered Lab Info) 0 each OTHER ONCE ONE Stop: 11/23/18 22:46 Morphine Sulfate (Morphine Inj) 2 mg IV.PUSH Q3H PRN PRN Reason: BREAKTHROUGH PAIN Last Admin: 11/17/18 22:47 Dose: 2 mg Naloxone HCl (Narcan Inj) 0.4 mg IV.PUSH UNSCH PRN PRN Reason: SEE LABEL COMMENTS Ondansetron HCl (Zofran Inj) 4 mg IV.PUSH Q6H PRN PRN Reason: NAUSEA OR VOMITING Oxycodone HCl (Roxicodone) 10 mg PO Q4H PRN PRN Reason: PAIN SCALE 6 TO 10 Last Admin: 11/21/18 05:49 Dose: 10 mg Oxycodone HCl (Roxicodone) 5 mg PO Q4H PRN PRN Reason: PAIN SCALE 3 TO 5 Last Admin: 11/20/18 19:53 Dose: 5 mg Pharmacy Profile Note (Vancomycin Consult Pharmacy) 1 each OTHER UNSCH PRN PRN Reason: Pharmacy to dose Senna/Docusate Sodium (Katherine-Colace) 1 tab PO BID PRN PRN Reason: CONSTIPATION Sodium Chloride (Ns Flush) 2 ml IV.FLUSH BID [facility] Last Admin: 11/20/18 21:46 Dose: 2 ml Sodium Chloride (Ns Flush) 2 ml IV.FLUSH PRN PRN PRN Reason: FLUSH AFTER USING IV ACCESS Spironolactone (Aldactone) 100 mg PO DAILY [facility] Last Admin: 11/20/18 09:36 Dose: 100 mg Allergies Allergy/AdvReac Type Severity Reaction Status Date / Time No Known Allergies Allergy Verified 11/15/18 11:12 Home Medications Medication Instructions Recorded Confirmed Type No Known Home Medications 11/15/18 11/15/18 History Physical Exam Vital signs: Vital Signs 11/20/18 12:00 11/20/18 16:00 11/20/18 20:00 Temperature 98.1 F 98.1 F Pulse Rate 100 H 94 H 97 H Respiratory Rate 17 16 22 Blood Pressure 107/60 96/63 L 100/62 Pulse Oximetry 97 96 99 11/20/18 20:23 11/20/18 23:17 11/21/18 00:00 Temperature 97.8 F Pulse Rate 98 H Respiratory Rate 20 20 Blood Pressure 97/61 L Pulse Oximetry 98 11/21/18 00:17 11/21/18 06:19 Temperature Pulse Rate Respiratory Rate 20 18 Blood Pressure Pulse Oximetry Intake & Output 11/20/18 11/21/18 11/21/18 18:59 06:59 18:59 Intake Total 811.00 / 811.00 303.50 / 303.50 Balance 811.00 / 811.00 303.50 / 303.50 Weight 78 kg Intake: IV 811.00 / 811.00 303.50 / 303.50 Gentamicin Inj 70 MG In NS Inj 203.50 / 203.50 203.50 / 203.50 100 ML @ 203.5 mls/hr IV.SIG Q8H [facility] Rx#:[id number] Vancomycin Inj 1,000 MG In NS 250 / 250 Inj 250 ML @ 250 mls/hr IV.SIG Q24H [facility]AZLYN Rx#:[id number] Vancomycin Inj 750 MG In NS Inj 257.5 / 257.5 250 ML @ 250 mls/hr IV.SIG Q12H [facility]N Rx#:[id number] Rocephin Inj 2,000 MG In NS Inj 100 / 100 100 / 100 100 ML @ 200 mls/hr IV.SIG Q24H JAZLYN Rx#:[id number] Other: # Voids 1 Date of Last Bowel Movement 11/17/18 Narrative: GENERAL: 43-year-old, well nourished, intubated in agonal breathing, cardiac arrest with ongoing CPR SKIN: Pale. HEAD: Atraumatic. Normocephalic. EYES: 7 mm dilated ENT: Orotracheally intubated CARDIOVASCULAR: Initially patient had regular rate and wide-complex rhythm. Loud Systolic murmur. Soon developed cardiac arrest RESPIRATORY: Bag and mask ventilation, air entry diminished at the bases with coarse rhonchi GASTROINTESTINAL: Abdomen distended MUSCULOSKELETAL: 2+ edema NEUROLOGICAL: Comatose patient undergoing CPR intermittent agonal respiratory effort Septic Shock Reassessment Septic shock perfusion: reassessment completed Assessment and Plan - Assessment and Plan Plan: ASSESSMENT cardiac arrest/asystole Respiratory arrest Ventricular tachycardia Septic shock Hyperkalemia Acute kidney injury Large aortic valve vegetation Infective endocarditis Aortic and mitral regurgitation on bedside echo Pulmonary hypertension Ascites Hepatitis C IV drug use PLAN: See HPI above CCT 38 MIN excluding procedures
--- NOTE | 2018-11-21 09:21 | P.PCN ---
Date of procedure: 11/21/18 Pre-op diagnosis: Cardiac arrest Post-op diagnosis: same Procedure: CPR note for second cardiac arrest ACLS protocol was followed again with myself at the bedside. Patient received total of 9 rounds of epinephrine, total 3 g of calcium including, 4 Amps of bicarb, 1 amp of D50 empirically. Mostly rhythm was asystole and PEA however brief periods of ventricular tachycardia x2 requiring DC cardioversion-which resulted in asystole again. After 38 minutes of CPR patient had no return of spontaneous circulation and remained in PEA and then asystole. Very brief period of feeble pulse once and at that time patient was started on Levophed infusion followed by epinephrine infusion. Levophed was over the course of CPR , increased to 40 mcg/min and epinephrine was increased to 10 and then 20 mcg/ min. CPR time total 38 minutes. Patient did not have return of spontaneous circulation after our attempts for 38 minutes, total CPR time 58 minutes. ACLS protocol was discontinued and patient was pronounced at 8:52 AM on 2018. Anesthesia: none Condition:
[2018-11-21 09:35] VITALS: O2SAT 100
--- NOTE | 2018-11-21 12:47 | P.DN ---
Pronouncement Note - Date and Time of Date of : 11/21/18 Time of : 08:52 - PCOD Preliminary cause of : Cardiac arrest Preliminary cause of : Multi-organ failure - Contributing Factors (1) Thrombocytopenia (2) Anemia (3) Ascites (4) Abdominal pain (5) Nausea and vomiting (6) Cough (7) Hyponatremia (8) Splenic infarct (9) Aortic stenosis (10) Hx of intravenous drug use, in remission - Summary Additional details: Per ICU attending: "Gilberto Gallagher is a 43-year-old male who was admitted to [facility], who has a history of moderate aortic stenosis, IVDU and after admission diagnosed with severe aortic valve endocarditis with Streptococcus. He had been followed by multiple specialists including infectious diseases and cardiology. Other diagnosis included severe sepsis, hyponatremia, hyperkalemia , acute kidney injury, thrombocytopenia, liver cirrhosis ascites. 2D echo had shown large, mobile, irregular, approximately 1 x 2 cm mass/vegetation on the aortic valve, moderate aortic valve stenosis. There was also moderate to severe tricuspid regurgitation, PA SP 75. Today a.m. he developed cardiac arrest,A ANASTACIO LOWRY was called today a.m. initially was attended by Dr. Masters, ACLS protocol was followed patient received D50 for blood sugar of 9, 2 ampoules of bicarb, and 6 rounds of epinephrine. After 20 minutes of CPR patient had return of spontaneous circulation and was brought to the CVICU where I met him. Immediately after my evaluation patient started becoming bradycardic with widening of the QRS complex. Hyperkalemia was suspected and patient was given 2 g IV calcium. One ampule of bicarb also given. Patient continued to have bradycardia and became asystolic. ACLS protocol was followed again with myself at the bedside. For the second ACLS patient received total of 9 rounds of epinephrine, total 3 g of calcium including above, 4 A of bicarb , 1 ampoule of D50 empirically. Most of the time rhythm was asystole and PEA however brief periods of ventricular tachycardia x2 requiring DC cardioversion- which resulted in asystole again. After 38 minutes of CPR patient had no return of spontaneous circulation and remained in PEA and then asystole. Very brief period of feeble pulse once and at that time patient was started on Levophed infusion followed by epinephrine infusion. Levophed was over the course of CPR, increased to 40 mcg/min and epinephrine was increased to 10 and then 20 mcg/min. CPR time total 38 minutes. Patient did not have return of spontaneous circulation after our attempts for 38 minutes, total CPR time 58 minutes. ACLS protocol was discontinued and patient was pronounced at 8: 52 AM on 11/21/2018."
--- NOTE | 2018-11-21 12:48 | P.DN ---
<Cynthia Raquel Meyer - Last Filed: 11/21/18 17:30> - Provider Attending physician on admission: Huy Pandey Consults: 11/15/18 15:38 Consult to Hematology Routine Consulting Provider: Justina Medina Reason for Consultation: anemia and thrombocytopenia of 16 Notified:: Office Spoke with:: Minnie Date Notified:: 11/15/18 Time Notified:: 15:51 Ordering Provider: AJ 11/19/18 09:46 Consult to Infectious Diseases Routine Consulting Provider: Lucia Banks Reason for Consultation: likely need for outpatient IV antibiotic setup for endocarditis Notified:: Service Spoke with:: Gini Date Notified:: 11/19/18 Time Notified:: 10:02 Ordering Provider: AJ 11/20/18 07:56 Consult to Cardiology Routine Consulting Provider: Nathaniel Hutchinson Does the patient have a Student Accounts Coordinator who follows them?: No Preferred Life [employer]:: Property Assessment Monitor Physician Reason for Consultation: Endocarditis involving aortic valve. Tricuspid regurg per ECHO. Notified:: Service Spoke with:: GIOVANI Date Notified:: 11/20/18 Time Notified:: 08:02 Ordering Provider: GABRIELLA 11/21/18 00:38 Consult to Cardiothoracic Surgery Routine Consulting Provider: Aristides Aldana Reason for Consultation: Hx IVDA, large aortic valve endocarditis Spoke with:: Added to List. Please call MD in AM Date Notified:: 11/21/18 Time Notified:: 00:45 Comments:: Dr Aldana aware 0921 hrs - ML Ordering Provider: FOREIGN Pronouncing clinician: Ronnie Ruiz - Admitting Diagnosis (1) Abdominal pain (2) Anemia (3) Thrombocytopenia (4) Splenic infarct (5) Ascites (6) Hyponatremia (7) Aortic stenosis - Diagnosis at Time of (1) Endocarditis Diagnosis: Principal (2) Splenic infarct Diagnosis: Secondary (3) Thrombocytopenia Diagnosis: Secondary (4) Anemia Diagnosis: Secondary (5) Hyponatremia Diagnosis: Secondary (6) Hyperkalemia Diagnosis: Secondary (7) Hx of intravenous drug use, in remission Diagnosis: Secondary - Date and Time Date of admission: 11/15/18 14:57 Date of : 11/21/18 Time of : 08:52 - Summary Details: Summary per Dr. Ruiz, ICU attending: "Gilberto Gallagher is a 43-year-old male who [facility], who has a history of moderate aortic stenosis, IVDU and after admission diagnosed with severe aortic valve endocarditis with Streptococcus. He had been followed by multiple specialists including infectious diseases and cardiology. Other diagnosis included severe sepsis, hyponatremia, hyperkalemia , acute kidney injury, thrombocytopenia, liver cirrhosis ascites. 2D echo had shown large, mobile, irregular, approximately 1 x 2 cm mass/vegetation on the aortic valve, moderate aortic valve stenosis. There was also moderate to severe tricuspid regurgitation, PA SP 75. Today a.m. he developed cardiac arrest,A CODE BLUE was called today a.m. initially was attended by Dr. Masters, ACLS protocol was followed patient received D50 for blood sugar of 9, 2 ampoules of bicarb, and 6 rounds of epinephrine. After 20 minutes of CPR patient had return of spontaneous circulation and was brought to the CVICU where I met him. Immediately after my evaluation patient started becoming bradycardic with widening of the QRS complex. Hyperkalemia was suspected and patient was given 2 g IV calcium. One ampule of bicarb also given. Patient continued to have bradycardia and became asystolic. ACLS protocol was followed again with myself at the bedside. For the second ACLS patient received total of 9 rounds of epinephrine, total 3 g of calcium including above, 4 A of bicarb , 1 ampoule of D50 empirically. Most of the time rhythm was asystole and PEA however brief periods of ventricular tachycardia x2 requiring DC cardioversion- which resulted in asystole again. After 38 minutes of CPR patient had no return of spontaneous circulation and remained in PEA and then asystole. Very brief period of feeble pulse once and at that time patient was started on Levophed infusion followed by epinephrine infusion. Levophed was over the course of CPR, increased to 40 mcg/min and epinephrine was increased to 10 and then 20 mcg/min. CPR time total 38 minutes. Patient did not have return of spontaneous circulation after our attempts for 38 minutes, total CPR time 58 minutes. ACLS protocol was discontinued and patient was pronounced at 8: 52 AM on 11/21/2018. [facility] Dr. Marie updated the family and I also talked to the parents. When the patient had brief return of circulation I did do a bedside echo which showed wide open mitral regurgitation and aortic regurgitation, EF appeared to be less than 5% at that time, more like flickering movements of the ventricle." Procedures: Bone marrow biopsy Brief History: Admission H&P: "43-year-old male with history of IV drug use and aortic stenosis diagnosed as a child presents the hospital with constant bilateral lower quadrant abdominal pain that has been gradually worsening for the past 7-10 days. He describes the pain as a "fullness" and distention. Also complains of concurrent nausea, which comes and goes, worse with coughing, or movement causing increased abdominal pressure. He notes that he has been belching frequently and admits to vomiting 2-3 times daily for the past couple of days. He notes that the emesis is nonbilious and nonbloody, sometimes triggered by coughing. Though he has been intermittently nauseated, he has been able to tolerate fluids and food occasionally. He also notes some shortness of breath, describing it as an inability to take a deep breath due to stomach pain. Admits to mild swelling in his ankles and feet for the past couple of days. He notes that he feels more pale than normal, and parents who are in the room, comments that he looks a little yellow-tinged. Denies fever, lightheaded dizziness, syncope, falls, CP , dysuria, hematuria, diarrhea or constipation. No increased bleeding or bruising. Past medical history: Diagnosed with aortic stenosis as a child, but not operated on as he remains asymptomatic. Medications: None Surgical history: None Social history: Lives in a house in [facility], with his father and stepmother. He is currently unemployed. Recently moved to [place] from [place], about 1-2 months ago. Former [id number] smoker, quit 3 months ago Denies alcohol use currently. Notes "occasional use "in the past. 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 PCP: none." Result Diagrams: 11/20/18 07:09 11/21/18 06:43 Significant Findings: Abnormal Lab Results 11/20/18 11/21/18 11/21/18 21:46 00:50 06:43 CBC w Diff Cancelled WBC Cancelled Corrected WBC Cancelled RBC Cancelled Hgb Cancelled Hct Cancelled MCV Cancelled MCH Cancelled MCHC Cancelled RDW Cancelled Plt Count Cancelled MPV Cancelled Prelim Diff (Auto) Cancelled Immature Gran % (Auto) Cancelled Neut % (Auto) Cancelled Lymph % (Auto) Cancelled [place] % (Auto) Cancelled Eos % (Auto) Cancelled Baso % (Auto) Cancelled Immature Gran # (Auto) Cancelled Neut # (Auto) Cancelled Lymph # (Auto) Cancelled [place] # (Auto) Cancelled Eos # (Auto) Cancelled Baso # (Auto) Cancelled WBC Differential Cancelled Diff Scan Cancelled Seg Neuts % (Manual) Cancelled Band Neuts % (Manual) Cancelled Lymphocytes % (Manual) Cancelled Atypical Lymphs % (Man) Cancelled Monocytes % (Manual) Cancelled Eosinophils % (Manual) Cancelled Basophils % (Manual) Cancelled Metamyelocytes % (Man) Cancelled Myelocytes % (Man) Cancelled Promyelocytes % (Man) Cancelled Blast Cells % (Manual) Cancelled Plasma Cell % (Manual) Cancelled Other Cells % Cancelled Abs Neuts (Manual) Cancelled Nucleated RBCs/100 WBC Cancelled Differential Comment Cancelled Hypersegmented Neuts Cancelled Smudge Cells Cancelled Toxic Granulation Cancelled Toxic Vacuolation Cancelled Dohle Bodies Cancelled Platelet Estimate Cancelled Platelet Morphology Cancelled RBC Morphology Cancelled Dimorphic RBCs Cancelled Polychromasia Cancelled Basophilic Stippling Cancelled Spherocytes Cancelled Pappenheimer Bodies Cancelled Sickle Cells Cancelled Target Cells Cancelled Tear Drop Cells Cancelled Ovalocytes Cancelled Stomatocytes Cancelled Helmet Cells Cancelled Nelson-Ranson Bodies Cancelled Lucie Cells Cancelled Acanthocytes (Spur) Cancelled Rouleaux Cancelled Keratocytes Cancelled Hematology Comments Cancelled Sodium Potassium Chloride Carbon Dioxide Anion Gap BUN Creatinine Estimated GFR POC Glucose Random Glucose Calcium Total Bilirubin AST ALT Alkaline Phosphatase Total Protein Albumin Gentamicin Peak 6.2 Gentamicin Trough 4.3 H 11/21/18 11/21/18 11/21/18 06:43 07:36 07:42 CBC w Diff WBC Corrected WBC RBC Hgb Hct MCV MCH MCHC RDW Plt Count MPV Prelim Diff (Auto) Immature Gran % (Auto) Neut % (Auto) Lymph % (Auto) [place] % (Auto) Eos % (Auto) Baso % (Auto) Immature Gran # (Auto) Neut # (Auto) Lymph # (Auto) [place] # (Auto) Eos # (Auto) Baso # (Auto) WBC Differential Diff Scan Seg Neuts % (Manual) Band Neuts % (Manual) Lymphocytes % (Manual) Atypical Lymphs % (Man) Monocytes % (Manual) Eosinophils % (Manual) Basophils % (Manual) Metamyelocytes % (Man) Myelocytes % (Man) Promyelocytes % (Man) Blast Cells % (Manual) Plasma Cell % (Manual) Other Cells % Abs Neuts (Manual) Nucleated RBCs/100 WBC Differential Comment Hypersegmented Neuts Smudge Cells Toxic Granulation Toxic Vacuolation Dohle Bodies Platelet Estimate Platelet Morphology RBC Morphology Dimorphic RBCs Polychromasia Basophilic Stippling Spherocytes Pappenheimer Bodies Sickle Cells Target Cells Tear Drop Cells Ovalocytes Stomatocytes Helmet Cells Nelson-Ranson Bodies [place] Cells Acanthocytes (Spur) Rouleaux Keratocytes Hematology Comments Sodium 128 L Potassium 6.3 H D Chloride 98 Carbon Dioxide 9.1 L Anion Gap 21 H BUN 56 H Creatinine 2.60 H Estimated GFR 27 L POC Glucose 18 L* 73 Random Glucose 9 L* Calcium 7.5 L Total Bilirubin 3.8 H AST 414 H ALT 76 Alkaline Phosphatase 97 Total Protein 5.0 L D Albumin 1.6 L Gentamicin Peak Gentamicin Trough 11/21/18 07:55 CBC w Diff WBC Corrected WBC RBC Hgb Hct MCV MCH MCHC RDW Plt Count MPV Prelim Diff (Auto) Immature Gran % (Auto) Neut % (Auto) Lymph % (Auto) [place] % (Auto) Eos % (Auto) Baso % (Auto) Immature Gran # (Auto) Neut # (Auto) Lymph # (Auto) [place] # (Auto) Eos # (Auto) Baso # (Auto) WBC Differential Diff Scan Seg Neuts % (Manual) Band Neuts % (Manual) Lymphocytes % (Manual) Atypical Lymphs % (Man) Monocytes % (Manual) Eosinophils % (Manual) Basophils % (Manual) Metamyelocytes % (Man) Myelocytes % (Man) Promyelocytes % (Man) Blast Cells % (Manual) Plasma Cell % (Manual) Other Cells % Abs Neuts (Manual) Nucleated RBCs/100 WBC Differential Comment Hypersegmented Neuts Smudge Cells Toxic Granulation Toxic Vacuolation Dohle Bodies Platelet Estimate Platelet Morphology RBC Morphology Dimorphic RBCs Polychromasia Basophilic Stippling Spherocytes Pappenheimer Bodies Sickle Cells Target Cells Tear Drop Cells Ovalocytes Stomatocytes Helmet Cells Nelson-Ranson Bodies Lucie Cells Acanthocytes (Spur) Rouleaux Keratocytes Hematology Comments Sodium Potassium Chloride Carbon Dioxide Anion Gap BUN Creatinine Estimated GFR POC Glucose 86 Random Glucose Calcium Total Bilirubin AST ALT Alkaline Phosphatase Total Protein Albumin Gentamicin Peak Gentamicin Trough Imaging: Abdomen/Pelvis CT 11/15/18 12:14 CONCLUSION: 1. 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 This needs to be correlated with patient's medical and surgical history. 2. Fatty infiltration of the liver. 3. 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 The largest defect measures approximately 3 cm x 4 cm. 4. Mild to moderate abdominal ascites. 5. Small bilateral effusions, right greater than left. Abdomen Ultrasound 11/16/18 00:00 CONCLUSION: 1. Very small amount of ascites. 2. Lobulated hepatic contour suggestive of cirrhosis. Liver Ultrasound 11/16/18 00:00 CONCLUSION: 1. There is some ascites around the liver. Mildly fatty liver. The gallbladder wall is thickened, possibly related to the ascites. Negative sonographic Flanagan sign Chest X-Ray 11/17/18 00:00 CONCLUSION: No acute cardiopulmonary Bone Biopsy 11/18/18 00:00 CONCLUSION: 1. Uncomplicated core needle biopsy of the Right Iliac crest. 2. Bone marrow aspirate, Right Iliac crest. Guidance Ultrasound 11/18/18 00:00 CONCLUSION: 1. Uncomplicated ultrasound guided venous access. Venous Doppler Study 11/20/18 00:00 CONCLUSION: 1. The study is negative for lower extremity deep venous thrombosis. Hospital Course: Thrombocytopenia HCV + Cirrhosis + Sepsis with positive blood cultures and aortic valve vegetation d/w Dr Medina, s/p BM biopsy on 11/18/18, no schistocytes to suggest TTP. * Anticoagulants held. * Platelet count decreased from 25,000 status post platelet transfusion (2 units ) back to 17,000 overnight. Hematology following. DDx includes sepsis, hemolysis, hepatitis, primary bone disorder. * Bone marrow biopsy performed 11/18/18. Results pending. Endocarditis * Echo showed EF of 50%. Large mobile irregular mass approximately 1-2 cm encompassing most of aortic leaflets, consistent with vegetation on the aortic valve. * 2 of 2 blood cultures from 11/15/2018 positive for gram-positive cocci, strep; blood cultures from 11/10/2018 show NGTD. * Vancomycin IV started on (2/28/19 - present), renally dosed per pharmacy. * ID consulted; added gentamicin. Abdominal pain SBP v Splenic infarcts * Treated SBP empirically with ceftriaxone IV 1 g daily. * Pain scale with oxycodone. * Abdominal ultrasound showed small amount of ascites. Ascites * With severe thrombocytopenia, will hold off on paracentesis. Only small amount of fluid visualized on ultrasound. * Empiric treatment for SBP. * Albumin and Lasix. * Added spironolactone 100 mg PO daily. Cough * Tessalon Perles. * Chest x-ray on 11/17 showed no acute cardiopulmonary process. * On Rocephin for empiric management of SBP. Anemia * Status post 2 units packed red blood cells on 11/17. Liver failure * Possibly NAFLD on imaging. * Autoimmune liver panel pending. Splenic infarcts * Hypercoaguable, possibly from liver dysfunction. * Right upper quadrant ultrasound showed mildly fatty liver, thickened gallbladder wall possibly related to the ascites, negative sonographic Flanagan sign, no obvious defects of the aorta, IVC or portal vasculature. * Echocardiogram showed aortic vegetation. Hyponatremia * Status post NS infusion. * Suspect more cirrhotic picture. Solitary left kidney * Avoided nephrotoxic meds. * Renally dosed all antibiotics per pharmacy conditions. + HCV antibody * Last exposure 3 months ago. * HCV Quant and Genotype pending. <Huy Pandey - Last Filed: 11/21/18 18:49> - Provider Primary care physician: No Primary Care Physician Consults: 11/15/18 15:38 Consult to Hematology Routine Consulting Provider: Justina Medina Reason for Consultation: anemia and thrombocytopenia of 16 Notified:: Office Spoke with:: Minnie Date Notified:: 11/15/18 Time Notified:: 15:51 Ordering Provider: AJ 11/19/18 09:46 Consult to Infectious Diseases Routine Consulting Provider: Lucia Banks Reason for Consultation: likely need for outpatient IV antibiotic setup for endocarditis Notified:: Service Spoke with:: Gini Date Notified:: 11/19/18 Time Notified:: 10:02 Ordering Provider: AJ 11/20/18 07:56 Consult to Cardiology Routine Consulting Provider: Nathaniel Hutchinson Does the patient have a Student Accounts Coordinator who follows them?: No Preferred Life Tester [employer]:: Property Assessment Monitor Physician Reason for Consultation: Endocarditis involving aortic valve. Tricuspid regurg per ECHO. Notified:: Service Spoke with:: GIOVANI Date Notified:: 11/20/18 Time Notified:: 08:02 Ordering Provider: GABRIELLA 11/21/18 00:38 Consult to Cardiothoracic Surgery Routine Consulting Provider: Aristides Aldana Reason for Consultation: Hx IVDA, large aortic valve endocarditis Spoke with:: Added to List. Please call MD in AM Date Notified:: 11/21/18 Time Notified:: 00:45 Comments:: Dr Aldana aware 0921 hrs - ML Ordering Provider: FOREIGN - Date and Time Date of admission: 11/15/18 14:57 - Summary Result Diagrams: 11/20/18 07:09 11/21/18 06:43 Significant Findings: Abnormal Lab Results 11/20/18 11/21/18 11/21/18 21:46 00:50 06:43 CBC w Diff Cancelled WBC Cancelled Corrected WBC Cancelled RBC Cancelled Hgb Cancelled Hct Cancelled MCV Cancelled MCH Cancelled MCHC Cancelled RDW Cancelled Plt Count Cancelled MPV Cancelled Prelim Diff (Auto) Cancelled Immature Gran % (Auto) Cancelled Neut % (Auto) Cancelled Lymph % (Auto) Cancelled [place] % (Auto) Cancelled Eos % (Auto) Cancelled Baso % (Auto) Cancelled Immature Gran # (Auto) Cancelled Neut # (Auto) Cancelled Lymph # (Auto) Cancelled [place] # (Auto) Cancelled Eos # (Auto) Cancelled Baso # (Auto) Cancelled WBC Differential Cancelled Diff Scan Cancelled Seg Neuts % (Manual) Cancelled Band Neuts % (Manual) Cancelled Lymphocytes % (Manual) Cancelled Atypical Lymphs % (Man) Cancelled Monocytes % (Manual) Cancelled Eosinophils % (Manual) Cancelled Basophils % (Manual) Cancelled Metamyelocytes % (Man) Cancelled Myelocytes % (Man) Cancelled Promyelocytes % (Man) Cancelled Blast Cells % (Manual) Cancelled Plasma Cell % (Manual) Cancelled Other Cells % Cancelled Abs Neuts (Manual) Cancelled Nucleated RBCs/100 WBC Cancelled Differential Comment Cancelled Hypersegmented Neuts Cancelled Smudge Cells Cancelled Toxic Granulation Cancelled Toxic Vacuolation Cancelled Dohle Bodies Cancelled Platelet Estimate Cancelled Platelet Morphology Cancelled RBC Morphology Cancelled Dimorphic RBCs Cancelled Polychromasia Cancelled Basophilic Stippling Cancelled Spherocytes Cancelled Pappenheimer Bodies Cancelled Sickle Cells Cancelled Target Cells Cancelled Tear Drop Cells Cancelled Ovalocytes Cancelled Stomatocytes Cancelled Helmet Cells Cancelled Nelson-Ranson Bodies Cancelled Lucie Cells Cancelled Acanthocytes (Spur) Cancelled Rouleaux Cancelled Keratocytes Cancelled Hematology Comments Cancelled Sodium Potassium Chloride Carbon Dioxide Anion Gap BUN Creatinine Estimated GFR POC Glucose Random Glucose Calcium Total Bilirubin AST ALT Alkaline Phosphatase Total Protein Albumin Gentamicin Peak 6.2 Gentamicin Trough 4.3 H 11/21/18 11/21/18 11/21/18 06:43 07:36 07:42 CBC w Diff WBC Corrected WBC RBC Hgb Hct MCV MCH MCHC RDW Plt Count MPV Prelim Diff (Auto) Immature Gran % (Auto) Neut % (Auto) Lymph % (Auto) [place] % (Auto) Eos % (Auto) Baso % (Auto) Immature Gran # (Auto) Neut # (Auto) Lymph # (Auto) [place] # (Auto) Eos # (Auto) Baso # (Auto) WBC Differential Diff Scan Seg Neuts % (Manual) Band Neuts % (Manual) Lymphocytes % (Manual) Atypical Lymphs % (Man) Monocytes % (Manual) Eosinophils % (Manual) Basophils % (Manual) Metamyelocytes % (Man) Myelocytes % (Man) Promyelocytes % (Man) Blast Cells % (Manual) Plasma Cell % (Manual) Other Cells % Abs Neuts (Manual) Nucleated RBCs/100 WBC Differential Comment Hypersegmented Neuts Smudge Cells Toxic Granulation Toxic Vacuolation Dohle Bodies Platelet Estimate Platelet Morphology RBC Morphology Dimorphic RBCs Polychromasia Basophilic Stippling Spherocytes Pappenheimer Bodies Sickle Cells Target Cells Tear Drop Cells Ovalocytes Stomatocytes Helmet Cells Nelson-Ranson Bodies Lucie Cells Acanthocytes (Spur) Rouleaux Keratocytes Hematology Comments Sodium 128 L Potassium 6.3 H D Chloride 98 Carbon Dioxide 9.1 L Anion Gap 21 H BUN 56 H Creatinine 2.60 H Estimated GFR 27 L POC Glucose 18 L* 73 Random Glucose 9 L* Calcium 7.5 L Total Bilirubin 3.8 H AST 414 H ALT 76 Alkaline Phosphatase 97 Total Protein 5.0 L D Albumin 1.6 L Gentamicin Peak Gentamicin Trough 11/21/18 07:55 CBC w Diff WBC Corrected WBC RBC Hgb Hct MCV MCH MCHC RDW Plt Count MPV Prelim Diff (Auto) Immature Gran % (Auto) Neut % (Auto) Lymph % (Auto) [place] % (Auto) Eos % (Auto) Baso % (Auto) Immature Gran # (Auto) Neut # (Auto) Lymph # (Auto) [place] # (Auto) Eos # (Auto) Baso # (Auto) WBC Differential Diff Scan Seg Neuts % (Manual) Band Neuts % (Manual) Lymphocytes % (Manual) Atypical Lymphs % (Man) Monocytes % (Manual) Eosinophils % (Manual) Basophils % (Manual) Metamyelocytes % (Man) Myelocytes % (Man) Promyelocytes % (Man) Blast Cells % (Manual) Plasma Cell % (Manual) Other Cells % Abs Neuts (Manual) Nucleated RBCs/100 WBC Differential Comment Hypersegmented Neuts Smudge Cells Toxic Granulation Toxic Vacuolation Dohle Bodies Platelet Estimate Platelet Morphology RBC Morphology Dimorphic RBCs Polychromasia Basophilic Stippling Spherocytes Pappenheimer Bodies Sickle Cells Target Cells Tear Drop Cells Ovalocytes Stomatocytes Helmet Cells Nelson-Ranson Bodies [place] Cells Acanthocytes (Spur) Rouleaux Keratocytes Hematology Comments Sodium Potassium Chloride Carbon Dioxide Anion Gap BUN Creatinine Estimated GFR POC Glucose 86 Random Glucose Calcium Total Bilirubin AST ALT Alkaline Phosphatase Total Protein Albumin Gentamicin Peak Gentamicin Trough Hospital Course: please see my a/p from 11/20 for last plan. On my arrival to the hospital today, patient had already been and was covered and family was gone but Dr Marie discussed case with them as well as Dr Ruiz. I debriefed with Dr Ruiz, Dr Hutchinson, and Dr Marie today. presumed worsening of vegetations and valvular disease, did have compounding hypoglycemia and hyperkalemia.
[2018-11-21 19:46] VITALS: PULSE 150
[2018-11-21 20:11] VITALS: BP 110/52
[2018-11-23] MEDS ORDERED: Pharmacy Ordered Lab Info OTHER ONE (22:45)
== END 2018-11-21 08:52 | disposition expired | DRG 871 ==
LOC: NEPB 11:07 → NEDA 14:57 → N07 17:41 → HCVI 11-21 08:15
PROVIDERS: ADMIT Family Medicine; ATTEND Family Medicine
CPT/HCPCS: 31500; 36410; 36430; 38222; 71020; 71046; 74177; 76705; 76937; 77002; 80048; 80053; 80074; 80170; 80202; 81001; 82040; 82105; 82247; 82248; 82607; 82728; 82746; 82948; 82962; 83010; 83036; 83540; 83550; 83615; 83690; 83735; 84155; 84165; 85025; 85044; 85097; 85379; 85384; 85610; 85730; 86038; 86430; 86431; 86850; 86880; 86900; 86901; 86923; 87040; 87149; 87186; 87205; 87389; 87522; 87902; 88184; 88185; 88237; 88264; 88280; 88305; 88311; 88313; 90761; 90772; 90774; 90775; 90782; 90784; 92950; 93306; 93971; 93975; 94002; 94656; 96361; 96372; 96374; 96375; 99145; 99152; 99153; 99285; A4646; C1830; C8952; C9113; J0171; J0500; J0696; J1580; J1610; J1885; J1940; J2060; J2250; J2270; J2310; J2405; J3010; J3370; J7030; J7050; P9016; P9031; P9047; Q9950; Q9965; Q9967